=== PATIENT | female | born 1955 | race Caucasian/White ===

== ENCOUNTER 2020-07-31 15:50 | Emergency (ER) | payer MEDICARE, SELFPAY ==
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
[2020-07-31 16:06] VITALS: BP 142/70; PULSE 74; RESP 16; TEMP 37.1; O2SAT 100
== END 2020-07-31 16:28 | disposition home or self-care (01) ==
PROVIDERS: Emergency Provider Nurse Practitioner Family; PCP Family Medicine
DX: H60.91 Unspecified otitis externa, right ear (principal); S40.862A Insect bite (nonvenomous) of left upper arm, initial encounter; S40.861A Insect bite (nonvenomous) of right upper arm, initial encounter; S80.862A Insect bite (nonvenomous), left lower leg, initial encounter; S80.861A Insect bite (nonvenomous), right lower leg, initial encounter; W57.XXXA Bitten or stung by nonvenomous insect and other nonvenomous arthropods, initial encounter; F17.200 Nicotine dependence, unspecified, uncomplicated; E78.00 Pure hypercholesterolemia, unspecified; I10 Essential (primary) hypertension; M19.90 Unspecified osteoarthritis, unspecified site; E03.9 Hypothyroidism, unspecified
CPT/HCPCS: 99213; G0463

== ENCOUNTER 2020-11-10 13:21 | Outpatient (CLI) | payer MEDICARE, SELFPAY ==
--- NOTE | ~2020-11-10 | MM_ITS ---
EXAMINATION: MM screening [facility] BI w alexia HISTORY: Screening mammogram TECHNIQUE: Craniocaudal and mediolateral oblique 3-D tomosynthesis images were obtained and synthetic 2-D images were generated. CAD analysis was submitted and interpreted. COMPARISON: 10/22/2019, 10/09/2018, 09/06/2017 BREAST PARENCHYMAL COMPOSITION: The breasts are almost entirely fatty. FINDINGS: There is no evidence of suspicious mass, calcification, or architectural distortion to sugg est malignancy in either breast. There has been no suspicious interval change. IMPRESSION: 1. No mammographic evidence of malignancy. 2. Recommend routine screening mammography in one year. BI-RADS Category 1: Negative Reviewed, dictated and finalized at location A. K RENTAL MANAGER
== END 2020-11-10 13:22 | disposition home or self-care (01) ==
LOC: ANHIMG 13:23
PROVIDERS: PCP Family Medicine; Visit Provider Family Medicine
DX: Z12.31 Encounter for screening mammogram for malignant neoplasm of breast (principal)
CPT/HCPCS: 77063; 77067

== ENCOUNTER 2020-12-01 11:18 | Outpatient (CLI) | payer MEDICARE, SELFPAY ==
[2020-12-01 12:10] LABS: Anion Gap 8 mmol/L (8-16); Aspartate Amino Transferase 29 U/L (14-36); Blood Urea Nitrogen 21 mg/dL (7-17); Calcium 9.5 mg/dL (8.4-10.2); Carbon Dioxide 33 mmol/L (22-30); Chloride 97 mmol/L (98-107); Cholesterol 148 mg/dL (0-200); Estimated Glomerular Filt Rate 55; Glucose 127 mg/dL (65-105); HDL Direct 43 mg/dL; Potassium 3.6 mmol/L (3.4-5.0); Sodium 138 mmol/L (137-145); Triglycerides 282 mg/dL (<150)
[2020-12-01 12:11] LABS: Hemoglobin A1C 5.8 % (<5.7)
[2020-12-01 12:33] LABS: LDL Cholesterol Direct 69 mg/dL
[2020-12-01 13:03] LABS: Thyroid Stimulating Hormone Reflex 0.818 uIU/mL (0.465-4.68)
== END 2020-12-01 11:19 | disposition home or self-care (01) ==
PROVIDERS: PCP Family Medicine; Visit Provider Family Medicine
DX: E78.5 Hyperlipidemia, unspecified (principal); I10 Essential (primary) hypertension; E03.9 Hypothyroidism, unspecified; R73.03 Prediabetes
CPT/HCPCS: 36415; 80048; 80061; 83036; 84443; 84450

== ENCOUNTER 2021-08-12 11:49 | Outpatient (CLI) | payer MEDICARE, SELFPAY ==
[2021-08-12 12:55] LABS: Hematocrit 38.4 % (37.0-47.0); Hemoglobin 13.1 g/dL (12.0-15.0); Mean Corpuscular HGB Conc 34.1 g/dl (32-36); Mean Corpuscular Hemoglobin 31.5 pg (26-34); Mean Corpuscular Volume 92.3 fl (80-100); Mean Platelet Volume 9.2 fl (7.4-10.4); Platelet Count Result 225 k/mm3 (150-375); Red Blood Count 4.16 M/mm3 (4.2-5.4); Red Cell Distribution Width 13.2 % (11.5-14.5); White Blood Count 7.9 K/mm3 (4.5-10.0)
[2021-08-12 13:14] LABS: Anion Gap 13 mmol/L (8-16); Aspartate Amino Transferase 29 U/L (14-36); Blood Urea Nitrogen 17 mg/dL (7-17); Calcium 9.7 mg/dL (8.4-10.2); Carbon Dioxide 26 mmol/L (22-30); Chloride 99 mmol/L (98-107); Cholesterol 159 mg/dL (0-200); Estimated Glomerular Filt Rate > 60; Glucose 129 mg/dL (65-110); HDL Direct 48 mg/dL; Potassium 3.4 mmol/L (3.4-5.0); Sodium 138 mmol/L (137-145); Triglycerides 250 mg/dL (<150)
[2021-08-12 13:25] LABS: LDL Cholesterol Direct 70 mg/dL
== END 2021-08-12 11:50 | disposition home or self-care (01) ==
LOC: ANHLAB 11:55
PROVIDERS: PCP Family Medicine; Visit Provider Family Medicine
DX: E78.5 Hyperlipidemia, unspecified (principal); R73.03 Prediabetes; E61.8 Deficiency of other specified nutrient elements
CPT/HCPCS: 36415; 80048; 80061; 84450; 85027

== ENCOUNTER 2021-12-15 10:32 | Outpatient (CLI) | payer MEDICARE, SELFPAY ==
--- NOTE | ~2021-12-15 | MM_ITS ---
EXAMINATION: MM screening [facility] BI w alexia HISTORY: Screening TECHNIQUE: Craniocaudal and mediolateral oblique 3-D tomosynthesis images were obtained and synthetic 2-D images were generated. CAD analysis was submitted and interpreted. COMPARISON: Comparison to multiple prior studies sequentially, with oldest reviewed study dated 08/23. BREAST PARENCHYMAL COMPOSITION: There are scattered areas of fibroglandular density. FINDINGS: There is no evidence of suspicious mass, calcification, or architectural distortion to sugg est malignancy in either breast. There has been no suspicious interval change. IMPRESSION: 1. No mammographic evidence of malignancy. 2. Recommend routine screening mammography in one year. BI-RADS Category 1: Negative Reviewed, dictated and finalized at location A. SCHOOL MANAGER
== END 2021-12-15 10:33 | disposition home or self-care (01) ==
LOC: ANHIMG 10:34
PROVIDERS: PCP Family Medicine; Visit Provider Family Medicine
DX: Z12.31 Encounter for screening mammogram for malignant neoplasm of breast (principal)
CPT/HCPCS: 77063; 77067

== ENCOUNTER 2022-06-10 13:08 | Outpatient (CLI) | payer MEDICARE, SELFPAY ==
[2022-06-10 13:44] LABS: Anion Gap 6 mmol/L (8-16); Aspartate Amino Transferase 25 U/L (14-36); Blood Urea Nitrogen 12 mg/dL (7-17); Calcium 8.7 mg/dL (8.4-10.2); Carbon Dioxide 30 mmol/L (22-30); Chloride 97 mmol/L (98-107); Cholesterol 132 mg/dL (0-200); Estimated Glomerular Filt Rate > 60; Glucose 113 mg/dL (65-110); HDL Direct 45 mg/dL; Potassium 3.9 mmol/L (3.4-5.0); Sodium 133 mmol/L (137-145); Triglycerides 172 mg/dL (<150)
[2022-06-10 13:55] LABS: LDL Cholesterol Direct 51 mg/dL
== END 2022-06-10 13:09 | disposition home or self-care (01) ==
LOC: ANHLAB 13:09
PROVIDERS: PCP Family Medicine; Visit Provider Family Medicine
DX: I10 Essential (primary) hypertension (principal); E78.5 Hyperlipidemia, unspecified; E03.9 Hypothyroidism, unspecified; R73.03 Prediabetes
CPT/HCPCS: 36415; 80048; 80061; 83036; 84443; 84450

== ENCOUNTER 2022-07-24 01:36 | Day surgery (SDC) | payer MEDICARE, SELFPAY ==
[2022-07-11 08:20] VITALS: BMI 40.4
[2022-07-24 11:04] VITALS: BP 134/67; PULSE 73; RESP 20; TEMP 36.3; O2SAT 97; BMI 40.6
--- NOTE | 2022-07-24 11:07 | P.PNAN_ITS ---
Anes - Initial Pre Proc Eval Procedure: Operation Date: 07/24/22 11:30 Proposed Procedures p Screening Colonoscopy - Arnold Syed MD Date/Time: 07/24/22 11:07 Surgeon: Arnold Syed MD Pre Op Diagnosis: family hx colon ca Patient Data Age: 66 Gender: F Height: 1.68 m Weight: 114.3 kg Last Vital Signs Temp 36.3 C L 07/24/22 11:04 Pulse 73 07/24/22 11:04 Resp 20 07/24/22 11:04 BP 134/67 07/24/22 11:04 Pulse Ox 97 07/24/22 11:04 O2 Del Method Room Air 07/24/22 11:04 Allergies Allergy/AdvReac Type Severity Reaction Status Date / Time No Known Allergies Allergy Verified 07/24/22 11:04 Home Medications Medication Instructions Recorded Confirmed Type atorvastatin 10 mg tablet 10 mg PO DAILY 07/31/20 07/11/22 History hydrochlorothiazide 50 mg tablet 50 mg PO DAILY 07/31/20 07/11/22 History levothyroxine 125 mcg tablet 125 mcg PO DAILY 07/31/20 07/11/22 History modafinil 200 mg tablet 200 mg PO DAILY 07/31/20 07/11/22 History trazodone 100 mg tablet 100 mg PO DAILY 07/31/20 07/11/22 History multivitamin-ferrous 1 tablet PO DAILY 07/11/22 07/11/22 History fumarate-folic acid 18 mg-400 mcg tablet (Centrum Women) Patient hx anesthesia problems: none Family hx anesthesia problems: none Results Review: All pre-operative results and documents have been reviewed as part of the pre- operative evaluation. [facility] Past Medical History Medical History (Updated 07/24/22 @ 11:10 by Paul Ronquillo MD) Anxiety HTN (hypertension) Hyperlipidemia Hypothyroidism Morbid obesity with BMI of 40.0-44.9, adult CHRISTO on CPAP Family History Family History (Updated 10/04/18 @ 10:06 by DOCTOR UNKNOWN) Other Carcinoma of colon Diabetes mellitus Family history of cardiovascular disease Family history of chronic obstructive pulmonary disease Family history of congestive heart failure Family history of lung cancer Family history of lymphoma Social History Social History Smoking status: Former smoker Tobacco type: cigarettes Alcohol intake: current Substance use type: does not use Living arrangements: with family Spiritual care concerns: No Anes - Eval Final PreProcedure Day of Procedure 07/24/22 11:07 Patient weight: morbidly obese Heart: regular rate and rhythm Lungs: clear to auscultation and normal air movement Airway: Mallampati scale class II Neurological: alert and oriented Last oral intake: >/= 8 hours ASA classification: III Emergent: no Anesthetic plan: proceed Anesthesia type and monitoring: general GIVS Results Review: All pre-operative results and documents have been reviewed as part of the pre- operative evaluation. Informed Consent: The patient's anesthetic plan and its attendant risks and benefits were discussed with the patient/family/POA. Questions were solicited and answers provided to the satisfaction of the patient/family/POA.
[2022-07-24] MEDS: LACTATED RINGERS 1,000 ML 150 ML IV CONT (11:17)
--- NOTE | 2022-07-24 11:18 | PM.IMHP ---
H&P: HPI History of Present Illness Date/Time: 07/24/22 11:18 Chief Complaint: Family history of colon polyps. Narrative: This is a 66-year-old white female patient presents for screening colonoscopy. Patient has had previous colonoscopies apparently these were unremarkable. She has a family history of colon polyps in several sisters. A cousin had colon cancer. Patient reports that she does have a tendency towards constipation. This is improved on adding fiber to her diet. She denies any bleeding or weight loss. Review of Systems Review of Systems: Review of systems noncontributory. [facility] Past Medical History Medical History (Updated 07/24/22 @ 11:19 by Arnold Syed MD) Anxiety HTN (hypertension) Hyperlipidemia Hypothyroidism Morbid obesity with BMI of 40.0-44.9, adult CHRISTO on CPAP Family History Family History (Updated 10/04/18 @ 10:06 by DOCTOR UNKNOWN) Other Carcinoma of colon Diabetes mellitus Family history of cardiovascular disease Family history of chronic obstructive pulmonary disease Family history of congestive heart failure Family history of lung cancer Family history of lymphoma Social History Social History Smoking status: Former smoker Tobacco type: cigarettes Alcohol intake: current Substance use type: does not use Living arrangements: with family Spiritual care concerns: No Meds Home Medications and Allergies Home Medications Medication Instructions Recorded Confirmed Type atorvastatin 10 mg tablet 10 mg PO DAILY 07/31/20 07/11/22 History hydrochlorothiazide 50 mg tablet 50 mg PO DAILY 07/31/20 07/11/22 History levothyroxine 125 mcg tablet 125 mcg PO DAILY 07/31/20 07/11/22 History modafinil 200 mg tablet 200 mg PO DAILY 07/31/20 07/11/22 History trazodone 100 mg tablet 100 mg PO DAILY 07/31/20 07/11/22 History multivitamin-ferrous 1 tablet PO DAILY 07/11/22 07/11/22 History fumarate-folic acid 18 mg-400 mcg tablet (Centrum Women) Allergies Allergy/AdvReac Type Severity Reaction Status Date / Time No Known Allergies Allergy Verified 07/24/22 11:04 Vital Signs Vital Signs - 24 hr 07/24/22 11:04 Temperature 97.3 F L Pulse Rate 73 Respiratory Rate 20 Blood Pressure 134/67 Pulse Oximetry 97 Oxygen Delivery Room Air Exam Narrative: physical exam reveals patient be alert. Vital signs stable. HEENT exam is unremarkable. Patient is anicteric. Lungs are clear to auscultation and percussion. Heart is without murmur or extra sounds. Abdominal exam somewhat obese. Bowel sounds are present soft nontender with no organomegaly. Digital external rectal exam is normal. Assessment and Plan Assessment and plan (1) Family history of colonic polyps: Code(s): Z83.71 - Family history of colonic polyps Status: Acute Assessment and Plan: Patient's family history is significant for several sisters with colon polyps. A cousin with colon cancer. Plan is for surveillance colonoscopy now and consider this a 5 year intervals in the future. Because of a tendency towards constipation fiber supplementation with Metamucil and high-fiber diet advised. (2) Morbid obesity with BMI of 40.0-44.9, adult: Code(s): E66.01 - Morbid (severe) obesity due to excess calories; Z68.41 - Body mass index [BMI] 40.0-44.9, adult Status: Acute Assessment and Plan: Weight loss with calorie restriction increase activity are encouraged.
[2022-07-24 12:00] VITALS: BP 94/40; PULSE 69; RESP 18; O2SAT 96
[2022-07-24 12:10] VITALS: BP 110/62; PULSE 70; RESP 21; O2SAT 98
[2022-07-24 12:20] VITALS: BP 112/64; PULSE 76; RESP 20; O2SAT 99
== END 2022-07-24 12:23 | disposition home or self-care (01) ==
PROVIDERS: PCP Family Medicine; Visit Provider Internal Medicine Gastroenterology
PROC: 0DJD8ZZ Inspection of Lower Intestinal Tract, Via Natural or Artificial Opening Endoscopic (ICD-10-PCS; CPT 45378; principal; 2022-07-24 11:30)
DX: Z12.11 Encounter for screening for malignant neoplasm of colon (principal); K63.5 Polyp of colon; K64.8 Other hemorrhoids; F41.9 Anxiety disorder, unspecified; I10 Essential (primary) hypertension; E78.5 Hyperlipidemia, unspecified; E03.9 Hypothyroidism, unspecified; G47.33 Obstructive sleep apnea (adult) (pediatric); Z87.891 Personal history of nicotine dependence; Z83.71 Family history of colonic polyps; E66.01 Morbid (severe) obesity due to excess calories; Z68.41 Body mass index [BMI] 40.0-44.9, adult
CPT/HCPCS: 45385; 88305; J2704; J7120

== ENCOUNTER 2022-11-29 12:59 | Outpatient (CLI) | payer MEDICARE, SELFPAY ==
[2022-11-29 13:37] LABS: Anion Gap 6 mmol/L (8-16); Blood Urea Nitrogen 18 mg/dL (7-17); Carbon Dioxide 32 mmol/L (22-30); Chloride 96 mmol/L (98-107); Estimated Glomerular Filt Rate > 60; Glucose 132 mg/dL (65-110); Potassium 4.3 mmol/L (3.4-5.0); Sodium 134 mmol/L (137-145)
== END 2022-11-29 13:00 | disposition home or self-care (01) ==
PROVIDERS: PCP Family Medicine; Visit Provider Family Medicine
DX: R79.89 Other specified abnormal findings of blood chemistry (principal)
CPT/HCPCS: 36415; 80048

== ENCOUNTER 2023-02-07 14:49 | Outpatient (CLI) | payer MEDICARE, SELFPAY ==
--- NOTE | ~2023-02-07 | DEXA_ITS ---
Bone Density Report Name: JAYJAY FERRERA Age: 67 Sex: Female Ethnicity: White Date of : 1955 Indication: postmenopausal; screening for osteoporosis; height loss; Referring Provider: HEIKE, ANGELA Doss Study: Bone densitometry was performed. Exam Date: February 07, 2023 Accession number: [id number] Bone Density: Region BMD T-score Z-score Classification AP Spine(L1-L4) 1.063 0.1 2.1 Normal Femoral Neck (Left) 0.926 0.7 2.4 Normal Total Hip (Left) 1.075 1.1 2.5 Normal Femoral Neck (Right) 0.934 0.8 2.5 Normal Total Hip (Right) 1.135 1.6 3.0 Normal Total Hip Mean 1.105 1.4 2.8 Normal World Health Organization criteria for BMD impression classify patients as: Normal (T-score at or above -1.0), Osteopenia (T-score between -1.0 and -2.5), or Osteoporosis (T-score at or below -2.5). 10-year Fracture Risk: FRAX not reported because: All T-scores for Spine Total, Hip Total, Femoral Neck at or above -1.0 Clinical Information Provided by Patient: Has used the following medications: Vitamin D, Calcium Patient maximum height was 66 Menopause Age: 47 No regular weight bearing exercise Drinks caffeinated beverages Onset of menses at age 13 Number of children 0 Impression: The patient has normal bone mass. Discussion: LOW RISK OF FRACTURE; BONE DENSITY IS WELL ABOVE THE MINIMUM DESIRABLE LEVEL AND ABOVE AVERAGE FOR AGE AND SEX AT ALL SKELETAL SITES TESTED. This person's bone density is above expected limits for age and sex. This is rarely clinically significant, but should be pursued if there are significant musculoskeletal complaints. The patient should follow a healthful lifestyle (good nutrition with adequate calcium and vitamin D, and appropriate weight-bearing exercise). Follow-Up: Consider repeating this study in 5 years or sooner if there is some new clinical indication. Reported by: KEZIA on 02/07/2023 3:24:00 PM. Reviewed, dictated and finalized at location ATamar DO
--- NOTE | ~2023-02-07 | MM_ITS ---
EXAMINATION: MM screening [facility] BI w alexia HISTORY: Screening mammogram TECHNIQUE: Craniocaudal and mediolateral oblique 3-D tomosynthesis images were obtained and synthetic 2-D images were generated. CAD analysis was submitted and interpreted. COMPARISON: 12/15/2021, 11/10/2020, 10/22/2019 bilateral screening mammogram examinations BREAST PARENCHYMAL COMPOSITION: There are scattered areas of fibroglandular density. FINDINGS: Occasional stable bilateral benign intramammary lymph nodes. Scattered bilateral benign pun ctate microcalcifications and occasional calcified microhematomas. There is no evidence of suspicious mass, calcification, or architectural distortion to suggest malign jaclyn in either breast. There has been no suspicious interval change. IMPRESSION: 1. No mammographic evidence of malignancy. 2. Recommend routine screening mammography in one year. BI-RADS Category 2: Benign finding(s). Reviewed, dictated and finalized at location A.
== END 2023-02-07 14:50 | disposition home or self-care (01) ==
LOC: ANHIMG 14:51
PROVIDERS: PCP Emergency Medicine; Visit Provider Emergency Medicine
DX: Z12.31 Encounter for screening mammogram for malignant neoplasm of breast (principal); Z78.0 Asymptomatic menopausal state
CPT/HCPCS: 77063; 77067; 77080

== ENCOUNTER 2023-06-07 13:01 | Outpatient (CLI) | payer MEDICARE, SELFPAY ==
[2023-06-07 13:33] LABS: White Blood Count 7.7 K/mm3 (4.5-10.0)
[2023-06-07 13:34] LABS: Basophils Absolute Auto 0.1 K/mm3 (0.0-0.1); Basophils Percent Auto 0.6 % (0.2-1.2); Eosinophils Absolute Auto 0.2 K/mm3 (0-0.3); Eosinophils Percent Auto 1.9 % (0-4.4); Hemoglobin 13.1 g/dL (12.0-15.0); Immature Granulocyte Absolute 0.02 K/mm3 (0.00-0.031); Immature Granulocyte Percent A 0.3 % (0-0.5); Lymphocytes Absolute Auto 2.03 K/mm3 (0.9-3.2); Lymphocytes Percent Auto 26.4 % (18.3-44.2); Mean Corpuscular HGB Conc 33.6 g/dl (32-36); Mean Corpuscular Hemoglobin 30.8 pg (26-34); Mean Corpuscular Volume 91.8 fl (80-100); Mean Platelet Volume 8.8 fl (7.4-10.4); Monocytes Absolute Auto 0.4 K/mm3 (0.1-0.6); Monocytes Percent Auto 5.7 % (2.6-8.5); Neutrophils Percent Auto 65.1 % (45.5-73.1); Platelet Count Result 201 k/mm3 (150-375); Red Blood Count 4.25 M/mm3 (4.2-5.4); Red Cell Distribution Width 13.3 % (11.5-14.5)
[2023-06-07 13:53] LABS: Alanine Aminotransferase 30 U/L (6-35); Albumin Level 4.2 g/dL (3.5-5.1); Alkaline Phosphatase 92 U/L (38-126); Anion Gap 4 mmol/L (8-16); Aspartate Amino Transferase 26 U/L (14-36); Bilirubin,Total 0.6 mg/dL (0.2-1.3); Blood Urea Nitrogen 11 mg/dL (7-17); Calcium 9.1 mg/dL (8.4-10.2); Carbon Dioxide 28 mmol/L (22-30); Chloride 98 mmol/L (98-107); Cholesterol 136 mg/dL (0-200); Estimated Glomerular Filt Rate > 60; Glucose 122 mg/dL (65-110); HDL Direct 40 mg/dL; Magnesium 1.8 mg/dL (1.6-2.3); Potassium 3.9 mmol/L (3.4-5.0); Sodium 130 mmol/L (137-145); Triglycerides 192 mg/dL (<150)
[2023-06-07 14:03] LABS: LDL Cholesterol Direct 63 mg/dL
[2023-06-07 14:40] LABS: Vitamin D 25 Hydroxy 45.8 ng/mL
== END 2023-06-07 13:02 | disposition home or self-care (01) ==
LOC: ANHLAB 13:03
PROVIDERS: PCP Emergency Medicine; Visit Provider Emergency Medicine
DX: Z79.899 Other long term (current) drug therapy (principal)
CPT/HCPCS: 36415; 80053; 80061; 82306; 83735; 84443; 85025

== ENCOUNTER 2023-08-11 13:51 | Outpatient (CLI) | payer MEDICARE, SELFPAY ==
[2023-08-11 14:21] LABS: Anion Gap 9 mmol/L (8-16); Blood Urea Nitrogen 15 mg/dL (7-17); Calcium 9.4 mg/dL (8.4-10.2); Carbon Dioxide 29 mmol/L (22-30); Chloride 96 mmol/L (98-107); Estimated Glomerular Filt Rate > 60; Glucose 109 mg/dL (65-110); Potassium 3.8 mmol/L (3.4-5.0); Sodium 134 mmol/L (137-145)
== END 2023-08-11 13:52 | disposition home or self-care (01) ==
LOC: ANHLAB 13:53
PROVIDERS: PCP Emergency Medicine; Visit Provider Emergency Medicine
DX: E87.1 Hypo-osmolality and hyponatremia (principal)
CPT/HCPCS: 36415; 80048

== ENCOUNTER 2024-05-09 13:07 | Outpatient (CLI) | payer MEDICARE, SELFPAY ==
[2024-05-09 13:52] LABS: Basophils Percent Auto 0.5 % (0.2-1.2); Eosinophils Absolute Auto 0.1 K/mm3 (0-0.3); Eosinophils Percent Auto 1.6 % (0-4.4); Hematocrit 40.7 % (37.0-47.0); Hemoglobin 13.4 g/dL (12.0-15.0); Immature Granulocyte Absolute 0.04 K/mm3 (0.00-0.031); Immature Granulocyte Percent A 0.5 % (0-0.5); Lymphocytes Absolute Auto 2.15 K/mm3 (0.9-3.2); Lymphocytes Percent Auto 24.9 % (18.3-44.2); Mean Corpuscular HGB Conc 32.9 g/dl (32-36); Mean Corpuscular Hemoglobin 30.7 pg (26-34); Mean Corpuscular Volume 93.1 fl (80-100); Mean Platelet Volume 9.2 fl (7.4-10.4); Monocytes Absolute Auto 0.7 K/mm3 (0.1-0.6); Monocytes Percent Auto 8.6 % (2.6-8.5); Neutrophils Absolute Auto 5.5 K/mm3 (1.3-6.7); Neutrophils Percent Auto 63.9 % (45.5-73.1); Platelet Count Result 221 k/mm3 (150-375); Red Blood Count 4.37 M/mm3 (4.2-5.4); Red Cell Distribution Width 13.2 % (11.5-14.5); White Blood Count 8.6 K/mm3 (4.5-10.0)
[2024-05-09 14:22] LABS: Alanine Aminotransferase 31 U/L (6-35); Albumin Level 4.6 g/dL (3.5-5.1); Alkaline Phosphatase 102 U/L (38-126); Anion Gap 11 mmol/L (4-12); Aspartate Amino Transferase 28 U/L (14-36); Bilirubin,Total 0.6 mg/dL (0.2-1.3); Blood Urea Nitrogen 15 mg/dL (7-17); Calcium 9.4 mg/dL (8.4-10.2); Carbon Dioxide 25 mmol/L (22-30); Chloride 100 mmol/L (98-107); Cholesterol 138 mg/dL (0-200); Estimated Glomerular Filt Rate > 60; Glucose 133 mg/dL (65-110); HDL Direct 43 mg/dL; Potassium 3.5 mmol/L (3.4-5.0); Sodium 136 mmol/L (137-145); Triglycerides 234 mg/dL (<150)
[2024-05-09 14:32] LABS: LDL Cholesterol Direct 70 mg/dL
[2024-05-09 14:49] LABS: Thyroid Stimulating Hormone 0.036 uIU/mL (0.465-4.680)
== END 2024-05-09 13:08 | disposition home or self-care (01) ==
LOC: ANHLAB 13:15
PROVIDERS: PCP Emergency Medicine; Visit Provider Emergency Medicine
DX: Z79.899 Other long term (current) drug therapy (principal)
CPT/HCPCS: 36415; 80053; 80061; 83036; 83735; 84443; 85025

== ENCOUNTER 2024-08-12 13:35 | Outpatient (CLI) | payer MEDICARE, SELFPAY | END 2024-08-12 13:36 | disposition home or self-care (01) | LOC: ANHLAB 13:46 | PROVIDERS: PCP Emergency Medicine; Visit Provider Emergency Medicine | DX: E03.9 Hypothyroidism, unspecified (principal) | CPT/HCPCS: 36415; 84443 ==

== ENCOUNTER 2025-04-27 13:43 | Outpatient (CLI) | payer MEDICARE, SELFPAY ==
--- OUTSIDE RECORDS SUMMARY | 2025-04-27 14:17 | XMS_ITS | Encounter Summary ---
Author Organization [facility] Facility Care Team Providers Care Farmworker General Name Role Phone Patricia Meléndez MD Primary Care Provider [phone] Lety Trotter NP Primary Care Provid er Encounter Details Date Type Department Care Team (Latest Contact Info) Description 09/18/2018 Orders Only [facility] CLINCONV ProviderModesta MD [address] [place] [id number] Social History Tobacco Use Types Packs/Day Years Used Date Smoking Tobacco: Never Assessed Comments Unknown Sex and Gender Information Value Date Recorded Sex Assigned at Not on file Legal Sex Female 8:14 PM COREMAKER EXPERIMENTAL Gender Identity Female 11/21/2022 4:52 PM COREMAKER EXPERIMENTAL Sexual Orientation Straight 11/21/2022 4: 52 PM COREMAKER EXPERIMENTAL documented as of this encounter Plan of Treatment Upcoming Encounters Date Type Department Care Team (Late st Contact Info) Description 05/04/2025 10:30 AM CDT Hospital Encounter [facility] [address] [place] [address] Issac Willis MD [facility] [address] [place] [id number] 05/04/2025 10:30 AM CDT - 05/04/2025 11:00 AM CDT Surgery [facility] [address] [place] [address] [place] [address] [place] [address] [address] [place] [address] COLONOSCOPY Scheduled Procedures Name Priority Associated Diagnoses Date/Ti me COLONOSCOPY Positive colorectal cancer screening using Cologuard test 05/04/2025 10:30 AM CDT documented as of this encounter Procedures Procedure Name Priority Date/Time Associated Diagnosis Comments PROCEDURE - RESULT 09/18/2018 12 :00 AM CDT documented in this encounter Results * PROCEDURE - RESULT (09/18/2018 12:00 AM CDT) Narrative 09/18/2018 12:00 AM CDT Ordered by an unspecified provider. Historical Provider Final Res ult documented in this encounter Visit Diagnoses Not on filedocumented in this encounter Care Teams Farmworker General Relationship Specialty Start Date End Date Patricia Meléndez MD [address] [address] PCP - General 01/07/19 11/21/22 Lety Trotter NP [address] [address] PCP - General Family Medicine 11/17/24 documented as of this encounter
--- OUTSIDE RECORDS SUMMARY | 2025-04-27 14:17 | XMS_ITS | Clinical Summary ---
Author Organization [facility] Address [address] [place] [address] Care Team Providers Care Commercial Fisher Name Role Phone Patricia Meléndez MD Primary Care Provider [phone] Source Comments [facility],non-owned Affiliates and Associated Physician Practices is amultiple site organization consisting of ambulatory clinics and hospital sitesin [place], [place], [place] and [place]. This disclosure is being madepursuant to the Care Everywhere program and may not contain all information available regarding this patient. Last updated 18.[facility] [email or web address] Active Problems Problem Noted Date Diagnosed Date Fatty (change of) liver, not elsewhere classifie d 11/05/2014 Social History Tobacco Use Types Packs/Day Years Used Date Smoking Tobacco: Every Day Cigarettes Smokeless Tobacco: Never Alcohol Use Standard Drinks/Week Comments No 0 (1 standard drink = 0.6 oz pur e alcohol) Comments Unknown Sex and Gender Information Value Date Recorded Sex Assigned at Not on file Legal Sex Female 6:21 PM VOICE PROFESSOR Gender Identity Not on file Sexual Orientation Not on file Last Filed Vital Signs Vital Sign Reading Time Taken Comments Blood Pressure 149/88 01/07/2015 3:29 PM VOICE PROFESSOR Pulse 97 01/07/2015 3:29 PM VOICE PROFESSOR Temperature 37.3 C (99.1 F) 01/07/2015 3:29 PM VOICE PROFESSOR Respiratory Rate 18 01/07/2015 3:29 PM VOICE PROFESSOR Oxygen Saturation - - Inhaled Oxygen Concentration - - Weight 115.7 kg (255 lb) 01/07/2015 3:29 PM VOICE PROFESSOR Height 167.6 cm (5' 6) 01/07/2015 3:29 PM VOICE PROFESSOR Body Mass Index 41.16 01/07/2015 3:29 PM VOICE PROFESSOR Plan of Treatment Health Maintenance Due Date Last Done Comments BONE DENSITY TESTING 1955 COLOGUARD (AGES 45-75) - COL ON CA SCREENING 1955 COLON MONITORING 1955 COLONOSCOPY - COLON CA SCREENING 1955 CT COLONOGRAPHY - COLON CA SCREENING 1955 Colorectal Cancer Screening 1955 FIT - COLON CA SCREENING 1955 FLEX SIG - COLON CA SCREENING 1955 LIPID TESTING 1955 MAMMOGRAM 1955 DTAP/TDAP/TD VACCINES (1 - Tdap) 1973 PNEUMOCOCCAL VACCINE 50+ (1 of 1 - PCV) 2004 ZOSTER VACCINE (1 of 2) 2004 Respiratory Syncytial Virus (RSV) Vaccine Pt: or over 60 yrs (1 - Risk 60-74 years 1-dose series) 2014 COVID-19 VACCINE ( - 2023-2 5 season) 2024 DEPRESSION SCREENING 11/26/2024 INFLUENZA VACCINE (Season Ended) 2025 HEPATITIS C SCREENING Completed 11/05/2014 HEPATITIS B VACCINE Aged Out No longe r eligible based on patient's age to complete this topic HIB VACCINE Aged Out No longer eligi ble based on patient's age to complete this topic HPV VACCINE Aged Out No longer eligi ble based on patient's age to complete this topic MENINGOCOCCAL (Group B) VACC INE SHARED DECISION-MAKING Aged Out No longer eligibl e based on patient's age to complete this topic MENINGOCOCCAL GROUPS A/C/Y/W VACCINE Aged Out No longer eligible b ased on patient's age to complete this topic Procedures Procedure Name Priority Date/Time Associated Diagnosis Comments HEPATITIS C ANTIBODY Routine 11/05/2014 5:25 PM VOICE PROFESSOR from Last 3 Months or Most Recently Relevant to Health Maintenance Results * HEPATITIS C ANTIBODY (11/05/2014 5:25 PM VOICE PROFESSOR) [facility]: Hepatitis C Antibody screen indicates no serologic evidence of past or current infection with Hepatitis C Virus. Patients with unexplained liver disease who are immunocompromised or suspected of having acute Hepatitis C infection may benefit from Nucleic Acid Test (GRACE) for Hepatitis C Viral RNA to confirm Hepatitis C status. Blood specimen (specimen) BLOOD SPECIMEN / Unknown 11/05/2014 5:25 PM VOICE PROFESSOR 11/05/2014 6:39 PM VOICE PROFESSOR Colt Alexander MD LAB - CHEMISTRY ORDERABLES Migdalia mast Result [address] [phone] from Last 3 Months or Most Recently Relevant to Health Maintenance Insurance [employer] Care Teams Commercial Fisher Relationship Specialty Start Date End Date Patricia Meléndez MD [address] [id number] PCP - General 11/05/14
--- OUTSIDE RECORDS SUMMARY | 2025-04-27 14:17 | XMS_ITS | Data Portability ---
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 Plan of Treatment Reminders Order Date Submit Date Provider Last Modified By Organization Details Last Modified Time Details Appointments MEDICARE WELLNESS VISIT 2024 03:00P M TANESHA Whaley Not available Not available Not available Lab HbA1c (hemoglob in A1c), blood 2024 025 [facility] (Lab), [address] [place] [address] [address], [place], [address], 04/27/2025 09:45:21 CMP, serum or plasma 2024 025 [facility], [address], [place], [address], 01/28/2025 08:22:52 CBC w/ auto diff 2024 025 [facility], [facility] [place][note 2]7 [facility], [address], [place], [address], 01/28/2025 08:22:54 TSH + free T4, serum 2024 025 [facility], [address], [place], [address], 01/28/2025 08:22:51 lipid panel, serum 2024 025 [facility] (Lab), [address] [facility] [address], [place], [address], 04/27/2025 09:45:21 BMP, serum or plasma 2023 024 [facility], [address], [address], [place], [address], 01/02/2024 12:22:45 magnesium , serum or plasma 2023 024 [facility], [address], [address], [place], [address], 01/02/2024 12:22:45 HbA1c (hemoglob in A1c), blood 2022 023 [facility] In-Office Order, Internal Use Only DO Not Attach Compendium DO Not Attach Compendium, Do Not Delete/merge, [id number] 06/13/2023 09:23:30 BMP, serum or plasma 2022 023 [facility] (Lab), [address] [facility] [address], [place], [address], 07/12/2023 09:40:42 rapid SARS CoV 2 Ag, QL IA, respirato ry specimen 2022 023 [email or web address] In-Office Order, Internal Use Only DO Not Attach Compendium DO Not Attach Compendium, Do Not Delete/merge, [id number] 03/22/2023 16:30:43 Referral None recorded. Procedures None recorded. Surgeries None recorded. Imaging None recorded. Medication Orders prednison e 20 mg tablet 2023 024 [facility] [id number] [facility], [facility] [address] , [place], [address], 08/15/2024 15:21:24 amoxicill in 875 mg-potass ium clavulana te 125 mg tablet [address] [id number], [address], [place], [place], [id number], 06/22/2024 08:02:22 Patient TargetsNo targets recorded. Patient Instructions Encounter Date Encounter Id Patient Instructions Last Modified By Organization Details Last Modified Time 03/22/2023 [id number] Acute Sinusitis: Care Instructions [email or web address] Not available 03/22/2023 17:16:22 06/11/2023 [id number] high cholesterol : care instructions [email or web address] Not available 06/11/2023 17:31:24 body mass index: care instructions [email or web address] Not available 06/11/2023 17:31:24 learning about h ealthy weight [email or web address] Not available 06/11/2023 17:31:24 electrolyte imba nessa: care instructions [email or web address] Not available 06/11/2023 17:31:24 hyponatremia: ca re instructions [email or web address] Not available 06/11/2023 17:31:24 learning about h igh blood pressure [email or web address] Not available 06/11/2023 17:31:24 hypothyroidism: care instructions [email or web address] Not available 06/11/2023 17:31:24 Elliott, - Thank kaleb valencia for your visit - Continue your current medications - your hemoglobin A1c is 6.1 - cut your dose of hydrochlorothiazide to 25 mg, tablet by mouth until your medication is renewed - recheck your sodium in one month - check your blood pressures daily, call if climbing to 140/90 and above - Return to clinic in 6 months, AND as needed. - Call with any concerns ____ Immunization recommendations: Preventive immunization against tetanus, diphtheria and pertussis is recommended every 10 years, or after 7 years if sustaining a tetanus-prone wound. Preventive immunization against shingles (herpes zoster) is recommended to reduce risk of occurrence, possible chronic pain, and transmission. Currently this is a two shot regimen. All individuals age 65 and up are encouraged to obtain vaccination against Pneumococcal pneumonia. Currently, this is a single immunization, [id number], if you have never previously been immunized. Yearly influenza immunization is recommended, and typically available beginning in mid-July. I highly encourage all who are able to complete an initial immunization series against COVID19, along with boosters as indicated by age or medical history. ____ Exercise recommendations: It is recommended that you do daily aerobic (walking, bicycling, swimming) and resistance exercises (light weight lifting, resistance band stretching) for at least 30 minutes, most days of the week. If you cannot walk, chair exercises for 10-15 minutes a day would help tremendously. As little as 15-20 minutes exercise, in one or two sessions a day, is still very helpful to manage/improve your weight and overall health Diet recommendations: Eat small portion meals, trying not to consume more than 1800 calories a day. Try to eat not more than 2 servings of carbs (starches) with your meals. Avoid soft drinks, including regular sodas, fruit juices, and sweetened tea. Drink water instead. Eat plenty of green and leafy vegetables, including salads. [email or web address] Not available 06/11/2023 17:31:22 01/01/2024 [id number] body mass index: care instructions [email or web address] Not available 01/01/2024 15:54:15 learning about h ealthy weight [email or web address] Not available 01/01/2024 15:54:16 tetanus and diph theria booster: care instructions [email or web address] Not available 01/01/2024 15:54:16 Elliott, - Thank yo annie for your visit - Continue your current medications - Your results will be available on the portal with any recommendations, or we will call you with them - Return to clinic in 6 months, AND as needed. - Call with any concerns ____ Immunization recommendations: - Preventive immunization against shingles (herpes zoster) is recommended to reduce risk of occurrence, possible chronic pain, and transmission. Currently this is a two shot regimen. - Yearly influenza immunization is recommended, and typically available beginning in mid-July. - I highly encourage all who are able to complete an initial immunization series against COVID19, along with boosters as indicated by age or medical history. - Consider obtaining an RSV immunization. For more information: https://www.cdc.gov/va teofilo/vpd/rsv/index.h tml ____ Exercise recommendations: - It is recommended that you do daily aerobic (walking, bicycling, swimming) and resistance exercises (light weight lifting, resistance band stretching) for at least 30 minutes, most days of the week. - If you cannot walk, chair exercises for 10-15 minutes a day would help tremendously. - As little as 15-20 minutes exercise, in one or two sessions a day, is still very helpful to manage/improve your weight and overall health Diet recommendations: - Eat small portion meals, trying not to consume more than 1800 calories a day. - Try to eat not more than 2 servings of carbs (starches) with your meals. - Avoid soft drinks, including regular sodas, fruit juices, and sweetened tea. Drink water instead. - Eat plenty of green and leafy vegetables, including salads. [email or web address] Not available 01/01/2024 16:00:35 07/01/2024 [id number] body mass index: care instructions [email or web address] Not available 07/01/2024 16:22:40 learning about h ealthy weight [email or web address] Not available 07/01/2024 16:22:40 learning about h igh blood pressure [email or web address] Not available 07/01/2024 16:22:40 high cholesterol : care instructions [email or web address] Not available 07/01/2024 16:22:40 Elliott, - Thank kaleb valencia for your visit - Continue your current medications - Use medications as directed. - See handout, ice, call with an update in 10 days - If shoulder not improving, will need to refer to sports medicine or orthopedics - mention your exertional shortness of breath to Dr. Shelby - you might need repeat lung testing - Have your TSH drawn at [place] in mid-July - Return to clinic in 6 months, AND as needed. - Call with any concerns ____ Immunization recommendations: - Preventive immunization against shingles (herpes zoster) is recommended to reduce risk of occurrence, possible chronic pain, and transmission. Currently this is a two shot regimen. - Yearly influenza immunization is recommended, and typically available beginning in mid-July. - I highly encourage all who are able to complete an initial immunization series against COVID19, along with boosters as indicated by age or medical history. - Consider obtaining an RSV immunization. For more information: https://www.cdc.gov/va teofilo/vpd/rsv/index.h tml ____ Exercise recommendations: - It is recommended that you do daily aerobic (walking, bicycling, swimming) and resistance exercises (light weight lifting, resistance band stretching) for at least 30 minutes, most days of the week. - If you cannot walk, chair exercises for 10-15 minutes a day would help tremendously. - As little as 15-20 minutes exercise, in one or two sessions a day, is still very helpful to manage/improve your weight and overall health Diet recommendations: - Eat small portion meals, trying not to consume more than 1800 calories a day. - Try to eat not more than 2 servings of carbs (starches) with your meals. - Avoid soft drinks, including regular sodas, fruit juices, and sweetened tea. Drink water instead. - Eat plenty of green and leafy vegetables, including salads. [email or web address] Not available 07/01/2024 16:22:23 Reason for Referral None Reported. Results Created Date Observation Date Name Description Value Unit Range Abnormal Flag Note LastModifiedBy Organization Detail LastModifiedTime 03/22/2003/22/2023 rapid SARS CoV 2 Ag, QL IA, respi rator y speci men rapid SARS CoV 2 Ag, QL IA, respiratory specimen negati ve Not Available In-Office Order Internal Use Only DO Not Attach Compendium DO Not Attach Compendium, Do Not Delete/merge, [id number] 03/22/2023 15:43:54 06/13/2006/13/2023 HbA1c (hemo globi n A1c), blood HbA1c 6.1 Not Available In-Office Order Internal Use Only DO Not Attach Compendium DO Not Attach Compendium, Do Not Delete/merge, [id number] 06/11/2023 17:20:20 01/01/20 24 01/02/2024 MAGNE SIUM magnesium 2.0 mg/dL 1.5-2. 5 normal Not Available [address], [address], 01/02/2024 12:22:44 01/01/20 24 01/02/2024 BASIC METAB OLIC PANEL glucose 88 mg/dL 65-99 normal Fasti ng refer ence inter loyda Not Available [address], [address], 01/02/2024 12:22:45 01/01/20 24 01/02/2024 BASIC METAB OLIC PANEL urea nitrogen (BUN) 13 mg/dL 7-25 normal Not Available [address], [address], 01/02/2024 12:22:45 01/01/20 24 01/02/2024 BASIC METAB OLIC PANEL creatinine 0.89 mg/dL 0.50-1 .05 normal Not Available [address], [address], 01/02/2024 12:22:45 01/01/20 24 01/02/2024 BASIC METAB OLIC PANEL eGFR 70 mL/mi n/1.7 3m2 > or = 60 normal Not Available [address], [address], 01/02/2024 12:22:45 01/01/20 24 01/02/2024 BASIC METAB OLIC PANEL BUN/creatini ne ratio SEE NOTE: (calc ) 6-22 Not Repor christiane: BUN and Creat inine are withi n refer ence range . Not Available [address], [address], 01/02/2024 12:22:45 01/01/20 24 01/02/2024 BASIC METAB OLIC PANEL sodium 139 mmol/ L 135-14 6 normal Not Available [address], [address], 01/02/2024 12:22:45 01/01/20 24 01/02/2024 BASIC METAB OLIC PANEL potassium 3.8 mmol/ L 3.5-5. 3 normal Not Available [address], [address], 01/02/2024 12:22:45 01/01/20 24 01/02/2024 BASIC METAB OLIC PANEL chloride 101 mmol/ L 98-110 normal Not Available [address], [address], 01/02/2024 12:22:45 01/01/20 24 01/02/2024 BASIC METAB OLIC PANEL carbon dioxide 26 mmol/ L 20-32 normal Not Available [address], [address], 01/02/2024 12:22:45 01/01/20 24 01/02/2024 BASIC METAB OLIC PANEL calcium 9.5 mg/dL 8.6-10 .4 normal Not Available [address], [address], 01/02/2024 12:22:45 01/28/20 25 01/28/2025 TSH+F REE T4 TSH 7.840 uIU/m L 0.450- 4.500 above high normal Not Available [facility] ([facility]) [address] [place], [address], 01/28/2025 08:22:51 01/28/2001/28/2025 TSH+F REE T4 T4,free(dire ct) 1.10 NG/dL 0.82-1 .77 Not Available [facility] ([facility]) [address] [place], [address], 01/28/2025 08:22:51 01/28/20 25 01/28/2025 COMP. METAB OLIC PANEL (14) glucose 97 mg/dL 70-99 Not Available [facility] ([facility]) [address] [place], [address], 01/28/2025 08:22:52 01/28/20 25 01/28/2025 COMP. METAB OLIC PANEL (14) BUN 13 mg/dL 8-27 Not Available [facility] ([facility]) [address] [place], [address], 01/28/2025 08:22:52 01/28/20 25 01/28/2025 COMP. METAB OLIC PANEL (14) creatinine 1.03 mg/dL 0.57-1 .00 above high normal Not Available [facility] ([facility]) [address] [place], [address], 01/28/2025 08:22:52 01/28/20 25 01/28/2025 COMP. METAB OLIC PANEL (14) eGFR 58 mL/mi n/1.7 3 >59 below low normal Not Available [facility] ([facility]) [address] [place], [address], 01/28/2025 08:22:52 01/28/20 25 01/28/2025 COMP. METAB OLIC PANEL (14) BUN/creatini ne ratio 13 12-28 Not Available [facility] ([facility]) [address] [place], [address], 01/28/2025 08:22:52 01/28/20 25 01/28/2025 COMP. METAB OLIC PANEL (14) sodium 139 mmol/ L 134-14 4 Not Available [facility] ([facility]) [address] [place], [address], 01/28/2025 08:22:52 01/28/20 25 01/28/2025 COMP. METAB OLIC PANEL (14) potassium 4.0 mmol/ L 3.5-5. 2 Not Available [facility] ([facility] [address] [facility] [place] [address], 01/28/2025 08:22:52 01/28/20 25 01/28/2025 COMP. METAB OLIC PANEL (14) chloride 98 mmol/ L 96-106 Not Available [facility] ([facility]) [address] [place], [address], 01/28/2025 08:22:52 01/28/20 25 01/28/2025 COMP. METAB OLIC PANEL (14) carbon dioxide, total 23 mmol/ L 20-29 Not Available [facility] ([facility] [address] [facility] [place] [place] [address], 01/28/2025 08:22:52 01/28/20 25 01/28/2025 COMP. METAB OLIC PANEL (14) calcium 9.5 mg/dL 8.7-10 .3 Not Available [facility] ([facility]) [address] [facility] [place] [place], [address], 01/28/2025 08:22:52 01/28/20 25 01/28/2025 COMP. METAB OLIC PANEL (14) protein, total 7.1 g/dL 6.0-8. 5 Not Available [facility] ([facility]) [address] [facility] [place], [address], 01/28/2025 08:22:52 01/28/20 25 01/28/2025 COMP. METAB OLIC PANEL (14) albumin 4.4 g/dL 3.9-4. 9 Not Available [facility] ([facility]) [address] [facility] [place] [place], [address], 01/28/2025 08:22:52 01/28/20 25 01/28/2025 COMP. METAB OLIC PANEL (14) globulin, total 2.7 g/dL 1.5-4. 5 Not Available [facility] ([facility]) [address] [facility], [place], [address], 01/28/2025 08:22:52 01/28/20 25 01/28/2025 COMP. METAB OLIC PANEL (14) bilirubin, total 0.4 mg/dL 0.0-1. 2 Not Available [facility] ([facility]) [address] [facility] [place] [place], [address], 01/28/2025 08:22:52 01/28/20 25 01/28/2025 COMP. METAB OLIC PANEL (14) alkaline phosphatase 115 IU/L 44-121 Not Available [facility] ([facility]) [address] [facility] [place] [place], [address], 01/28/2025 08:22:52 01/28/20 25 01/28/2025 COMP. METAB OLIC PANEL (14) AST (SGOT) 29 IU/L 0-40 Not Available [facility] ([facility]) [address] [facility], [place], [address], 01/28/2025 08:22:52 01/28/20 25 01/28/2025 COMP. METAB OLIC PANEL (14) ALT (SGPT) 31 IU/L 0-32 Not Available [facility] ([facility]) [address] [facility] [place], [address], 01/28/2025 08:22:52 01/28/20 25 01/28/2025 CBC WITH DIFFE RENTI AL/PL ATELE T WBC 8.0 x10e3 /uL 3.4-10 .8 Not Available [facility] ([facility]) [address] [facility] [place], [address], 01/28/2025 08:22:53 01/28/20 25 01/28/2025 CBC WITH DIFFE RENTI AL/PL ATELE T RBC 4.25 x10e6 /uL 3.77-5 .28 Not Available [facility] ([facility]) [address] [facility] [place], [address], 01/28/2025 08:22:53 01/28/20 25 01/28/2025 CBC WITH DIFFE RENTI AL/PL ATELE T hemoglobin 13.1 g/dL 11.1-1 5.9 Not Available [facility] ([facility]) [address] [facility], [place], [address], 01/28/2025 08:22:53 01/28/20 25 01/28/2025 CBC WITH DIFFE RENTI AL/PL ATELE T hematocrit 39.5 % 34.0-4 6.6 Not Available [facility] ([facility]) [address] [place], [address], 01/28/2025 08:22:53 01/28/20 25 01/28/2025 CBC WITH DIFFE RENTI AL/PL ATELE T MCV 93 fL 79-97 Not Available [facility] ([facility]) [address] [place], [address], 01/28/2025 08:22:53 01/28/20 25 01/28/2025 CBC WITH DIFFE RENTI AL/PL ATELE T MCH 30.8 pg 26.6-3 3.0 Not Available [facility] ([facility]) [address] [place], [address], 01/28/2025 08:22:53 01/28/20 25 01/28/2025 CBC WITH DIFFE RENTI AL/PL ATELE T MCHC 33.2 g/dL 31.5-3 5.7 Not Available [facility] ([facility]) [address] [place], [address], 01/28/2025 08:22:53 01/28/20 25 01/28/2025 CBC WITH DIFFE RENTI AL/PL ATELE T RDW 13.6 % 11.7-1 5.4 Not Available [facility] ([facility]) [address] [place], [address], 01/28/2025 08:22:53 01/28/20 25 01/28/2025 CBC WITH DIFFE RENTI AL/PL ATELE T platelets 260 x10e3 /uL 150-45 0 Not Available [facility] ([facility]) [address] [facility], [place], [address], 01/28/2025 08:22:53 01/28/20 25 01/28/2025 CBC WITH DIFFE RENTI AL/PL ATELE T neutrophils 70 % notest ab. Not Available [facility] ([facility]) [address] [facility], [place], [address], 01/28/2025 08:22:53 01/28/20 25 01/28/2025 CBC WITH DIFFE RENTI AL/PL ATELE T lymphs 21 % notest ab. Not Available [facility] ([facility]) [address] [facility], [place], [address], 01/28/2025 08:22:53 01/28/20 25 01/28/2025 CBC WITH DIFFE RENTI AL/PL ATELE T monocytes 6 % notest ab. Not Available [facility] ([facility]) [address] [facility], [place], [address], 01/28/2025 08:22:53 01/28/20 25 01/28/2025 CBC WITH DIFFE RENTI AL/PL ATELE T eos 2 % notest ab. Not Available [facility] ([facility]) [address] [facility], [place], [address], 01/28/2025 08:22:53 01/28/20 25 01/28/2025 CBC WITH DIFFE RENTI AL/PL ATELE T basos 1 % notest ab. Not Available [facility] ([facility]) [address] [facility], [place], [address], 01/28/2025 08:22:53 01/28/20 25 01/28/2025 CBC WITH DIFFE RENTI AL/PL ATELE T neutrophils (absolute) 5.6 x10e3 /uL 1.4-7. 0 Not Available [facility] ([facility]) [address] [place], [address], 01/28/2025 08:22:53 01/28/20 25 01/28/2025 CBC WITH DIFFE RENTI AL/PL ATELE T lymphs (absolute) 1.7 x10e3 /uL 0.7-3. 1 Not Available [facility] ([facility]) [address] [facility], [place], [address], 01/28/2025 08:22:53 01/28/20 25 01/28/2025 CBC WITH DIFFE RENTI AL/PL ATELE T monocytes(ab solute) 0.5 x10e3 /uL 0.1-0. 9 Not Available [facility] ([facility]) [address] [facility], [place], [address], 01/28/2025 08:22:53 01/28/20 25 01/28/2025 CBC WITH DIFFE RENTI AL/PL ATELE T eos (absolute) 0.1 x10e3 /uL 0.0-0. 4 Not Available [facility] ([facility]) [address] [facility], [place], [address], 01/28/2025 08:22:53 01/28/20 25 01/28/2025 CBC WITH DIFFE RENTI AL/PL ATELE T baso (absolute) 0.1 x10e3 /uL 0.0-0. 2 Not Available [facility] ([facility]) [address] [place], [address], 01/28/2025 08:22:53 01/28/20 25 01/28/2025 CBC WITH DIFFE RENTI AL/PL ATELE T immature granulocytes 0 % notest ab. Not Available [facility] ([facility]) [address] [place], [address], 01/28/2025 08:22:53 01/28/20 25 01/28/2025 CBC WITH DIFFE RENTI AL/PL ATELE T immature grans (abs) 0.0 x10e3 /uL 0.0-0. 1 Not Available [facility] ([facility]) [address] [facility], [place], [address], 01/28/2025 08:22:53 02/21/20 23 02/07/2023 DEXA No observ ation record ed. [address], [place], [address], 06/11/2023 17:00:48 Result Notes None recorded. Problems Name Problem SNOMED Code Status Onset Date Resolution Date Notes Provider Name and Address Organization Details Recorded Time Hyperlip idemia 10528165 Active 2018 Not Available [facility] 3 12:40:35 Mixed anxiety and depressi ve disorder 418013287 Active 2020 Not Available [facility] 3 12:40:34 Long-ter m drug therapy Active 2022 Not Available [facility] 3 12:40:35 Body mass index 40+ - severely obese 368057589 Active 2022 Not Available [facility] 3 12:40:35 Menopaus e present 720133139 Completed 202206/11/2023 Jas Perez MD Attn: Accounting ,[address] [facility], [place], [address] , [facility] SI 16:43:28 Pain in both feet 79061030684 561714 Active 2022 Not Available [facility] 3 12:40:34 Hyponatr emia 82216829 Active 2022 Not Available [facility] 3 12:40:35 Persiste nt insomnia 562660577 Active 2022 Not Available [facility] 3 12:40:34 Pain of right shoulder joint 84013634575 520369 Active 2023 Jas Perez MD Attn: Accounting ,[address] [facility], [place], [address] , [place] [facility] 4 16:23:02 Essdoyle l hyperten gerardo 46810460 Active 2015 Not Available [facility] 3 12:40:35 Hypothyr oidism 65614644 Active 2015 Not Available [facility] 3 12:40:35 Menopaus al symptom 92467789 Completed 201107/21/2012 Location : None;Sev erity: Moderate ;Progres s: Stable;A dded By: Patricia Meléndez;Add to Current Problems : NO Not Available [facility] 7 09:35:44 Mineral deficien cy 099254391 Active 2011 Not Available [facility] 3 12:40:34 Contact dermatit is 57812016 Completed 201306/27/2014 Location : None;Sev erity: Moderate ;Progres s: Stable;A dded By: Beronica Juárez;Add to Current Problems : NO Not Available [facility] 7 09:35:44 Eruption 223710635 Completed 201306/27/2014 Location : None;Sev erity: Moderate ;Progres s: Stable;A dded By: Karolina Neely;Add to Current Problems : NO Not Available [facility] 7 09:35:44 Acute sinusiti s 94041064 Completed 201307/23/2014 Location : None;Sev erity: Moderate ;Progres s: Stable;A dded By: Alesha Alcaraz;Add to Current Problems : NO Not Available [facility] 7 09:35:44 Acute sinusiti s 19389822 Completed 201504/15/2016 Location : None;Sev erity: Moderate ;Progres s: Stable;A dded By: Yaquelin Campbell;Add to Current Problems : YES Not Available [facility] 7 09:35:45 Nausea and vomiting 08453495 Completed 201406/19/2015 Location : None;Sev erity: Moderate ;Progres s: Stable;A dded By: Parent, Sylvia E.;Add to Current Problems : YES Not Available [facility] 7 09:35:45 Nausea 966568446 Completed 201407/26/2015 Location : None;Sev erity: Moderate ;Progres s: Stable;A dded By: Parent, Sylvia E.;Add to Current Problems : NO Not Available [facility] 7 09:35:45 Acute sinusiti s 47567944 Completed 201407/26/2015 Location : None;Sev erity: Moderate ;Progres s: Stable;A dded By: Parent, Sylvia E.;Add to Current Problems : YES Not Available [facility] 7 09:35:45 Tobacco dependen ce syndrome [id number] Completed 201407/26/2015 Location : None;Sev erity: Moderate ;Progres s: Stable;A dded By: Parent, Sylvia E.;Add to Current Problems : YES Not Available [facility] 7 09:35:45 Acute bronchit is 98324950 Completed 201505/14/2016 Location : None;Sev erity: Moderate ;Progres s: Stable;A dded By: Parent, Sylvia E.;Add to Current Problems : YES Not Available [facility] 7 09:35:45 Impacted cerumen 39091925 Completed 201505/14/2016 Location : None;Sev erity: Moderate ;Progres s: Stable;A dded By: ParentSylvia E.;Add to Current Problems : YES Not Available [facility] 7 09:35:45 Transien t insomnia 450505448 Completed 201302/28/2014 Location : None;Sev erity: Moderate ;Progres s: Stable;A dded By: Alesha Alcaraz;Add to Current Problems : NO Not Available [facility] 7 09:35:45 Open wound of finger 598068112 Completed 201302/28/2014 Location : None;Sev erity: Moderate ;Progres s: Stable;A dded By: Alesha Alcaraz;Add to Current Problems : NO Not Available [facility] 7 09:35:45 Generali zed anxiety disorder 34380338 Completed 201208/17/2021 Location : None;Sev erity: Moderate ;Progres s: Stable;A dded By: Yaquelin Campbell;Add to Current Problems : YES Patricia Meléndez [facility], [place] - [place] 1 15:52:07 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 2015 Not Available [facility] 3 12:40:35 Dyspnea 379042477 Completed 201207/20/2013 Location : None;Sev erity: Moderate ;Progres s: Stable;A dded By: Claritza Smith; Add to Current Problems : NO Not Available [facility] 7 09:35:45 Acute upper respirat ory infectio n of multiple sites Completed 201211/16/2013 Location : None;Sev erity: Moderate ;Progres s: Stable;A dded By: Claritza Smith; Add to Current Problems : NO Not Available [facility] 7 09:35:45 Neoplasm of uncertai n behavior of skin 06714057 Completed 201503/04/2016 Location : None;Sev erity: Moderate ;Progres s: Stable;A dded By: Claritza Smith; Add to Current Problems : YES Not Available [facility] 7 09:35:45 IgE-medi ated allergic asthma 628469812 Active 2014 Not Available [facility] 3 12:40:35 Single major depressi ve episode, moderate Active 2011 Not Available [facility] 3 12:40:34 Infectiv e otitis externa 87110981 Completed 201206/16/2013 Location : None;Sev erity: Moderate ;Progres s: Stable;A dded By: Patricia Meléndez;Add to Current Problems : NO Not Available [facility] 7 09:35:45 History of fall 844453039 Completed 201206/11/2023 Jas Perez MD Attn: Accounting ,[address] [place], [address] , [facility] 3 16:43:46 Contusio n of chest 92705879 Completed 201207/20/2013 Location : None;Sev erity: Moderate ;Progres s: Stable;A dded By: Patricia Meléndez;Add to Current Problems : NO Not Available [facility] 7 09:35:46 Transien t insomnia 734670774 Completed 201211/30/2013 Location : None;Sev erity: Moderate ;Progres s: Stable;A dded By: Patricia Meléndez;Add to Current Problems : NO Not Available [facility] 7 09:35:46 Acute sinusiti s 70497985 Completed 201211/30/2013 Location : None;Sev erity: Moderate ;Progres s: Stable;A dded By: Patricia Meléndez;Add to Current Problems : NO Not Available [facility] 7 09:35:46 Acute maxillar y sinusiti s 50323030 Completed 201410/03/2015 Location : None;Sev erity: Moderate ;Progres s: Stable;A dded By: Patricia Meléndez;Add to Current Problems : YES Not Available [facility] 7 09:35:46 Senile hyperker atosis 918909959 Completed 201506/11/2023 Jas Perez MD Attn: Accounting ,[address] [place], [address] , [facility] 3 16:43:12 Edema 297725567 Completed 201410/02/2015 Location : None;Sev erity: Moderate ;Progres s: Stable;A dded By: Diane Mckay to Current Problems : NO Not Available [facility] 7 09:36:28 Elevated blood-pr essure reading without diagnosi s of hyperten gerardo 868270201 Completed 201410/02/2015 Location : None;Sev erity: Moderate ;Progres s: Stable;A dded By: Diane Mckay d to Current Problems : NO Not Available [facility] 7 09:36:28 Karen george [id number] Completed 201310/11/2014 Location : None;Sev erity: Moderate ;Progres s: Stable;A dded By: Kyra Adler;Add to Current Problems : YES Not Available [facility] 7 09:36:29 Prediabe mallika 559732267 Active 2016 Not Available [facility] 3 12:40:35 Problem Notes None recorded. Medical Equipment None Reported. Allergies Allergen ID Allergen Name Allergen Category Reaction Reaction Severity Criticality Documentation Date Start Date Code Code System Note Provider Name and Address Organization Details Recorded Time 601192 Prevalite medicatio n Not available Not available Not available 10/18/2021 58052 7 RxNorm const ipati on Patricia wren [facility] 1 16:13:53 Medications Name Sig Start Date Stop Date Status Note LastModified by Organization Details LastModified Time bupropion HCl SR 150 mg tablet,12 hr sustained-r elease Take 1 tablet(s) by mouth daily x 3days then one PO BID 10/18 completed Not Available Not Available Not Available citalopram 40 mg tablet Take 1 tablet(s) by mouth daily 01/15 completed RxNor m: 61004 4;All ow Subst ituti on: True Not Available Not Available Not Available trazodone 50 mg tablet 1 tab at hs 04/29 completed Not Available Not Available Not Available triamcinolo ne acetonide 0.5 % topical cream Apply thin film to affected area bid <2 weeks. 11/09 completed Not Available Not Available Not Available atorvastati n 10 mg tablet TAKE 1 TABLET BY MOUTH EVERY DAY active Not Available Not Available No t Available hydrochloro thiazide 50 mg tablet TAKE 1 TABLET BY MOUTH EVERY DAY 2024 active Not Available Not Available Not Avai lable hydrocodone 5 mg-acetamin ophen 325 mg tablet 02/19 completed Not Available Not Available Not Available meloxicam 15 mg tablet TAKE 1 TABLET (15 MG TOTAL) BY MOUTH DAILY. active Not Available Not Available No t Available promethazin e 12.5 mg tablet Take 1 tablet(s) by mouth q 4 to 6 hr 07/18 completed RxNor m: 86732 8;All ow Subst ituti on: True Not Available Not Available Not Available ondansetron HCl 4 mg tablet Take 1 tablet twice a day by oral route. 08/01 completed Not Available Not Available Not Available prednisone 20 mg tablet TAKE 2 TABLETS BY MOUTH IN MORNING FOR 4 DAYS, THEN 1 TABLET BY MOUTH IN MORNING FOR 4 DAYS 08/15 completed Not Available Not Available Not Available betamethaso ne, augmented 0.05 % topical cream 11/09 completed Not Available Not Available Not Available sertraline 100 mg tablet Take 1 tablet every day by oral route. 06/14 completed Not Available Not Available Not Available Zithromax 250 mg tablet Take 2 tablet(s) by mouth on day 1 then 1 tablet every day for the next 4 days. 07/06 completed RxNor m: 06250 6;All ow Subst ituti on: True Not Available Not Available Not Available metronidazo le 500 mg tablet 02/19 completed Not Available Not Available Not Available Provigil 100 mg tablet Take one tablet PO daily 11/14 completed RxNor m: 09567 6;All ow Subst ituti on: True Not Available Not Available Not Available levothyroxi ne 75 mcg tablet Take 1 tablet every day by oral route. 01/29 completed Not Available Not Available Not Available levothyroxi ne 100 mcg tablet Take 1 tablet every day by oral route in the morning. 01/29 completed Not Available Not Available Not Available citalopram 20 mg tablet 1 po daily 06/04 completed RxNor m: 63276 1;All ow Subst ituti on: True Not Available Not Available Not Available amitriptyli ne 25 mg tablet Take 1 tablet(s) by mouth at bedtime 08/26 completed RxNor m: 08496 4;All ow Subst ituti on: True Not Available Not Available Not Available modafinil 200 mg tablet TAKE 1 TABLET BY MOUTH EVERY DAY active Not Available Not Available No t Available trazodone 100 mg tablet Take 1 tablet by mouth everyday at bedtime 2024 active Not Available Not Available Not Avai lable cephalexin 500 mg capsule one PO TID for 2 weeks 10/20 completed Not Available Not Available Not Available levothyroxi ne 125 mcg tablet TAKE 1 TABLET BY MOUTH EVERY DAY active Not Available Not Available No t Available Synthroid 50 mcg tablet Take 1 tablet(s) by mouth daily 08/04 completed RxNor m: 16308 7;All ow Subst ituti on: True Not Available Not Available Not Available Prevalite 4 gram powder for suspension in a packet 10/18 completed Not Available Not Available Not Available betamethaso ne, augmented 0.05 % topical ointment 10/20 completed Not Available Not Available Not Available hydrocodone 5 mg-acetamin ophen 500 mg tablet Take 1 tablet(s) by mouth q 4 to 6 hr prn 09/17 completed RxNor m: 73799 3;All ow Subst ituti on: True Not Available Not Available Not Available hydrochloro thiazide 25 mg tablet take one po daily 01/29 completed Not Available Not Available Not Available Wellbutrin 100 mg tablet take 1 1/2 tab bid 10/30 completed RxNor m: 20433 8;All ow Subst ituti on: True Not Available Not Available Not Available cefuroxime axetil 500 mg tablet Take 1 tablet(s) by mouth bid for 10 days 11/02 completed Not Available Not Available Not Available methylpredn isolone 4 mg tablets in a dose pack Take as directed 10/20 completed Not Available Not Available Not Available ketoconazol e 2 % topical cream APPLY TO THE AFFECTED AREA(S) BY TOPICAL ROUTE ONCE DAILY 10/20 completed Not Available Not Available Not Available sertraline 50 mg tablet Take 1 tablet every day by oral route. 01/15 completed Not Available Not Available Not Available loratadine 10 mg tablet Take 1 tablet by oral route. 04/29 completed Not Available Not Available Not Available naproxen 500 mg tablet Take 1 po bid as needed 09/17 completed RxNor m: 96636 4;All ow Subst ituti on: True Not Available Not Available Not Available levothyroxi ne 112 mcg tablet PLEASE SEE ATTACHED FOR DETAILED DIRECTION S active Not Available Not Available No t Available amoxicillin 875 mg-potassiu m clavulanate 125 mg tablet TAKE 1 TABLET BY MOUTH EVERY 12 HOURS FOR 7 DAYS 06/22 completed Not Available Not Available Not Available neomycin-po lymyxin-hyd rocort 3.5 mg-10,000 unit/mL-1 % ear drops,susp 11/09 completed Not Available Not Available Not Available bupropion HCl SR 200 mg tablet,12 hr sustained-r elease TAKE 1 TABLET BY MOUTH TWICE A DAY 12/05 completed Not Available Not Available Not Available Ciprodex 0.3 %-0.1 % ear drops,suspe nsion 08/01 completed Not Available Not Available Not Available cholestyram ine-asparta me 4 gram oral powder for susp in a packet Take 1 packet every day by oral route. 2020 active Not Available Not Available Not Avai lable bupropion HCl XL 300 mg 24 hr tablet, extended release Take 1 tablet by mouth every day in the morning 2024 active Not Available Not Available Not Avai lable Wellbutrin XL 150 mg 24 hr tablet, extended release Take one tablet PO TID 05/19 completed RxNor m: 66968 5;All ow Subst ituti on: True Not Available Not Available Not Available ProAir HFA 90 mcg/actuati on aerosol inhaler Inhale 2 puffs every 4-6 hours by inhalatio n route as needed. 02/19 completed Not Available Not Available Not Available Nuvigil 150 mg tablet Take 1 tablet(s) by mouth qam 05/16 completed RxNor m: 13277 9;All ow Subst ituti on: True Not Available Not Available Not Available GaviLyte-G 236 gram-22.74 gram-6.74 gram-5.86 gram oral solution 12/02 completed Not Available Not Available Not Available Prevnar 13 (PF) 0.5 mL intramuscul ar syringe 10/18 completed Not Available Not Available Not Available bupropion HCl 150 mg tablet,12 hr sustained-r elease(smok ing deterrent) 10/18 completed Not Available Not Available Not Available Fluad Quad 5662-5016(6 5yr up)(PF) 60 mcg (15 mcg x 4)/0.5mL IM syringe 12/02 completed Not Available Not Available Not Available Vitals Date Recorded Body height Body mass index (BMI) Body weight Body temperature Oxygen saturation Oxygen saturation in Arterial blood by Pulse oximetry Heart rate Systolic blood pressure Diastolic blood pressure Provider Name and Address Organization Details Last Updated DateTime 4 167.64 cm 44 kg/m2 282416. 22 g 98.2 [degF] 95 % 95 % 78 /min 125 mm[Hg] 78 mm[Hg] Marty Fox MA [facility] 4 15:03:02 Date Recorded Body height Body mass index (BMI) Body weight Oxygen saturation Oxygen saturation in Arterial blood by Pulse oximetry Body temperature Heart rate Systolic blood pressure Diastolic blood pressure Provider Name and Address Organization Details Last Updated DateTime 5 167.64 cm 43.4 kg/m2 619188. 05 g 93 % 93 % 97.2 [degF] 79 /min 107 mm[Hg] 69 mm[Hg] Durga Garduno MA [facility] 5 15:16:22 Date Recorded Oxygen saturation Oxygen saturation in Arterial blood by Pulse oximetry Provider Name and Address Organization Details Last Updated DateTime 03/22/2023 99 % 99 % DARRIUS Gordon Attn: Accounting,[address] [place], [address], [facility] 03/22/2023 16:30:50 Date Recorded Body height Body mass index (BMI) Body weight Body temperature Heart rate Systolic blood pressure Diastolic blood pressure Provider Name and Address Organization Details Last Updated DateTime 3 167.64 cm 41.5 kg/m2 439333. 24 g 97.5 [degF] 84 /min 128 mm[Hg] 79 mm[Hg] Maikel Marsh MA [facility] 3 16:11:56 Date Recorded Body height Body mass index (BMI) Body weight Body temperature Oxygen saturation Oxygen saturation in Arterial blood by Pulse oximetry Heart rate Systolic blood pressure Diastolic blood pressure Provider Name and Address Organization Details Last Updated DateTime 3 167.64 cm 42.8 kg/m2 240199. 38 g 98.2 [degF] 95 % 95 % 65 /min 111 mm[Hg] 66 mm[Hg] Marty Fox MA [facility] 3 16:18:57 Date Recorded Body height Body mass index (BMI) Body weight Oxygen saturation Oxygen saturation in Arterial blood by Pulse oximetry Heart rate Body temperature Systolic blood pressure Diastolic blood pressure Provider Name and Address Organization Details Last Updated DateTime 4 167.64 cm 43.3 kg/m2 806839. 76 g 93 % 93 % 83 /min 98 [degF] 135 mm[Hg] 78 mm[Hg] Juli Davis MA [place] [facility] 4 15:23:57 Social History Question Answer Notes LastModified by Organizat ion Details LastModified Time Tobacco Smoking Status Former Smoker quit 2017 Jas Perez MD Attn: [facility],[address] [place], [address], [facility] 06/11/2023 17:03:05 Do You Have An Advance Directive? No Information not available 08/17/2021 Are You Blind Or Do You Have Difficulty Seeing? No Information not available 08/17/2021 What Is Your Level Of Caffeine Consumption? Moderate Information not available 05/03/2021 Are You Deaf Or Do You Have Serious Difficulty Hearing? Yes Information not available 08/17/2021 What Type Of Diet Are You Following? REGULAR Information not available 08/17/2021 What Was The Date Of Your Most Recent Tobacco Screening? 07/01/2024 Information not available 07/01/2024 What Is Your Current Pack Years? 20-29packyea rs [email or web address] Information not available 06/11/2023 What Is Your Relationship Status? Information not available 08/17/2021 Do You Use Your Seat Belt Or Car Seat Routinely? Yes Information not available 08/17/2021 Do You Have Smoke And Carbon Monoxide Detectors In Your Home? Yes Information not available 08/17/2021 Are You Passively Exposed To Smoke? No Information not available 08/17/2021 How Much Tobacco Do You Smoke? No Information not available 07/01/2024 Has Tobacco Cessation Counseling Been Provided? No Information not available 05/03/2021 How Many Years Have You Smoked Tobacco? 20 [email or web address] Information not available 10/20/2019 Sex: Female Functional Status Question Answer Note LastModified by Organizat ion Details LastModified Time Do you use any illicit or recreational drugs? No Information not available 05/03/2021 Do you or have you ever used any other forms of tobacco or nicotine? No Information not available 05/03/2021 What is your level of alcohol consumption? None Information not available 05/03/2021 Do you or have you ever used smokeless tobacco? Never used smokeless tobacco Information not available 11/09/2020 Are you currently employed? No Information not available 08/17/2021 Are you able to care for yourself? Yes Information not available 08/17/2021 Do you or have you ever used e-cigarettes or vape? Never used electronic cigarettes Information not available 11/09/2020 What is your exercise level? None Information not available 08/17/2021 Mental Status Question Answer Note LastModified by Organization D etails LastModified Time Do you feel stressed (tense, restless, nervous, or anxious, or unable to sleep at night)? [id number] Information not available 08/17/2021 Family History Relationship Description Onset Age of this Age Resolved Age Notes LastModified by Organization Details LastModified Time Sister Primary malignant neoplasm of lung 63 65 [email or web address] Not available 2015 12:34:20 Sister Diffuse non-Hodgkin' s lymphoma 68 [email or web address] Not available 11/02 12:35:48 Sister Hyperlipidem ia [email or web address] Not available 01/2017 13:17:52 Sister Type 1 diabetes mellitus [email or web address] Not available 01/2017 13:18:35 Sister Malignant neoplasm of rectum 60 [email or web address] Not available 2021 15:34:39 Father Primary malignant neoplasm of lung 72 [email or web address] Not available 2015 12:35:16 Father Myocardial infarction [email or web address] Not available 13:18:04 Mother Rheumatoid arthritis [email or web address] Not available 01/2017 13:18:44 Brother Sleep apnea [email or web address] Not a vailable 05/28/2017 13:18:54 Notes:Heart Problems-[facility]cles Medical History Condition Response Anxiety Disorder Y High Blood Pressure Y Thyroid Problems Y Gynecological History Statement/Question Response Menses Monthly N Obstetrics History GPAL:G 0 P 0 0 0 0 Immunizations Vaccine Type Date Status Note Provider Nam e and Address Organization Details Recorded Time COVID-19, mRNA, LNP-S, PF, 30 mcg/0.3 mL dose 1 completed Kenia Sousa [place] null, [place] [facility] 08/17/2021 15:16:03 COVID-19, mRNA, LNP-S, PF, 30 mcg/0.3 mL dose 1 completed Kenia Sousa [place], [place] [facility] 08/17/2021 15:16:12 Pneumococcal conjugate PCV 13 0 completed Patricia Meléndez [place], [place] [facility] 10/18/2021 16:20:09 COVID-19, mRNA, LNP-S, bivalent, PF, 30 mcg/0.3 mL dose 2 completed Jennifer Chew [place], [place] [facility] 10/10/2022 22:29:38 Influenza, high-dose, quadrivalent, PF 2 completed [place] Chew [place], [place] [facility] 10/10/2022 22:30:12 zoster recombinant 3 completed [place] Chew [place], [place] [facility] 09/21/2023 10:53:58 COVID-19, mRNA, LNP-S, PF, blair-sucrose, 30 mcg/0.3 mL 3 completed [place] Chew [place], [place] [facility] 09/21/2023 10:54:20 COVID-19, mRNA, LNP-S, PF, 50 mcg/0.5 mL 4 completed [place] Chew [place], [place] [facility] 08/29/2024 13:57:13 Influenza, high-dose, trivalent, PF 4 completed [place] Chew [place], [place] [facility] 08/29/2024 13:57:13 Influenza, split virus, quadrivalent, preservative 9 completed Not Available [facility] 12/13/2019 02:38:46 Influenza, split virus, quadrivalent, preservative 1 completed Kenia Sousa [place], [place] [facility] 08/17/2021 17:08:35 Tdap 4 completed Claritza Sandra [place], [place] [facility] 11/02/2016 11:51:40 pneumococcal polysaccharide PPV23 1 completed Claritza Sandra [place] [facility] 11/02/2016 11:51:53 Pneumococcal conjugate PCV20, polysaccharide [id number] conjugate, adjuvant, PF 3 completed Jas Perez MD Attn: Accounting[address] [place], [address], [facility] 12/12/2022 09:45:55 Tdap 9 completed Not Available [facility] 11/29/2016 06:02:34 Tdap 4 completed Marty Fox [place], [place] [facility] 01/01/2024 17:06:47 Past Encounters Encounter ID Performer Location Encounter Start Date Encounter Closed Date Diagnosis/Indication Diagnosis SNOMED-CT Code Diagnosis ICD10 Code Diagnosis Note [id number] Patricia Meléndez MD [facility] [address] [facility] [place] [facility] [place] [place] [address] 11/02/2016 11:41:26 11/03/2016 15:16:37 Mixed anxiety and depressive disorder 649704485 F41.8 [id number] Patricia Meléndez MD [facility] [address] [place] [address] 01/15/2017 17:01:40 01/16/2017 12:30:34 Single major depressive episode, moderate 595926692 F32.1 Acute maxi llary sinusitis 67002513 J01.00 Essential hypertension 32362566 I10 Hypothyroidism 80890964 E03.9 [id number] Patricia Meléndez MD [facility] [address] [place] [address] 06/14/2017 15:28:43 06/14/2017 17:46:40 Essential hypertension 13602982 I10 Mixed anxi ety and depressive disorder 363035893 F41.8 Fatigue 25100703 R53.83 TSH lipid , BMP Acute maxi llary sinusitis 43611216 J01.00 [id number] Patricia Meléndez MD [facility] [address] [place] [address] 06/21/2017 11:15:27 06/21/2017 16:27:38 Hypothyroidism 62959160 E03.9 Essential hypertension 68425511 I10 [id number] Patricia Meléndez MD [facility] [address] [place] [address] 06/26/2017 09:21:20 06/26/2017 13:09:08 Glucose level outside reference range 079304847 R73.09 [id number] Patricia Meléndez MD [facility] [address] [place] [address] 07/19/2017 16:37:00 07/19/2017 17:38:02 Essential hypertension 01593984 I10 Single marleni or depressive episode, moderate 596749677 F32.1 Acute maxi llary sinusitis 59462727 J01.00 if patient calls back get Ct sinuses Nausea 151810735 R11.0 [id number] Patricia Meléndez MD [facility] [address] [place] [address] 01/29/2018 16:28:21 01/29/2018 17:23:23 Essential hypertension 58995898 I10 I gave written order to patient for lipid, BMP, AST, and TSH Single marleni or depressive episode, moderate 181500586 F32.1 Hypothyroidism 18178733 E03.9 doing well with med and attributes some weight loss to this Intentiona l weight loss 111835279 R63.8 lost 7 pounds [id number] Patricia Meléndez MD [facility] [address] [place] [address] 02/04/2018 09:44:52 02/04/2018 16:43:10 Hypothyroidism 18136432 E03.9 Essential hypertension 80938125 I10 Prediabetes 947744713 R7 3.03 [id number] Patricia Meléndez MD [facility] [address] [place] [address] 08/01/2018 16:15:34 08/02/2018 11:38:46 Prediabetes 817957571 R73.03 I gave written order Essential hypertension 55193529 I10 Acute maxi llary sinusitis 76884905 J01.00 Persistent cough 6022991 02 R05 [id number] Patricia Meléndez MD [facility] [address] [place] [address] 10/31/2018 12:16:12 11/01/2018 11:22:23 Acute maxillary sinusitis 43213752 J01.00 Mixed hyperlipidemia 267 631487 E78.2 Fatigue 00985077 R53.83 I ordered lipid BMp and TSH [id number] Patricia Meléndez MD [facility] [address] [place] [address] 02/19/2019 15:28:38 02/20/2019 09:06:00 Essential hypertension 33828952 I10 Prediabetes 416643858 R7 3.03 Hypothyroidism 30524201 E03.9 Allergic r hinitis caused by pollen 44481058 J30.1 Single marleni or depressive episode, moderate 055195488 F32.1 Body mass index 40+ - severely obese 384199534 Z68.41 Normal grief reaction 27 6414168 F43.20 [id number] Patricia Meléndez MD [facility] [address] [place] [address] 05/07/2019 15:48:25 05/07/2019 17:20:41 Generalized anxiety disorder 72496627 F41.1 Essential hypertension 07538966 I10 Single marleni or depressive episode, moderate 149124717 F32.1 Normal grief reaction 27 8837784 F43.20 [id number] Patricia Meléndez MD [facility] [address] [place] [address] 06/19/2019 14:20:09 06/19/2019 16:19:56 Tinea pedis 9018289 B35.3 Foot pain 78615379 M79.6 71 M79.314 [id number] Patricia Meléndez MD [facility] [address] [place] [address] 10/20/2019 10:25:58 10/20/2019 14:05:35 Hyperlipidemia 28219988 E78.5 Generalize d anxiety disorder 47361561 F41.1 Essential hypertension 91028980 I10 Administra tion of influenza vaccine 76217504 Z23 Prediabetes 821538676 R7 3.03 [id number] Patricia Meléndez MD [facility] [address] [place] [address] 04/29/2020 15:00:44 04/29/2020 16:57:36 Hypothyroidism 49782178 E03.9 Single marleni or depressive episode, moderate 909515134 F32.1 Hyperlipidemia 34484355 E78.5 Essential hypertension 07930422 I10 [id number] Patricia Melénedz MD [facility] [address] [place] [address] 05/25/2020 13:41:56 05/25/2020 16:40:05 Change in skin lesion 429347013 L98.9 Lesion of face 186901837 L98.9 [id number] Patricia Meléndez MD [facility] [address] [place] [address] 11/09/2020 12:46:18 2020 14:49:42 Single major depressive episode, moderate 143224798 F32.1 Hyperlipidemia 89369660 E78.5 Generalize d anxiety disorder 55029805 F41.1 Essential hypertension 09462496 I10 Hypothyroidism 72295456 E03.9 Prediabetes 086207084 R7 3.03 [id number] Patricia Meléndez MD [facility] [address] [place] [address] 05/03/2021 13:13:57 05/04/2021 14:50:03 Essential hypertension 85842899 I10 Hypothyroidism 65149431 E03.9 Single marleni or depressive episode, moderate 552535656 F32.1 Hyperlipidemia 57150022 E78.5 Body mass index 40+ - severely obese 381457291 Z68.41 [id number] Patricia Meléndez MD [facility] [address] [place] [address] 08/17/2021 15:06:23 08/17/2021 16:46:54 Hyperlipidemia 29392999 E78.5 Essential hypertension 84013903 I10 Hypothyroidism 51866151 E03.9 Mixed anxi ety and depressive disorder 681764556 F41.8 Administra tion of influenza vaccine 40198661 Z23 Chronic diarrhea 9138759 09 K52.9 not due for colonoscop y until 08/2024 [id number] Patricia Meléndez MD [facility] [address] [place] [address] 10/18/2021 13:14:15 10/19/2021 09:43:05 Mixed anxiety and depressive disorder 061562282 F41.8 Chronic diarrhea 5993425 09 K52.9 not due for colonoscop y until 08/2024 - resolved with prevalite then metamucil [id number] Patricia Meléndez MD [facility] [address] [place] [address] 06/05/2022 14:33:36 06/05/2022 16:32:41 Mixed anxiety and depressive disorder 896082494 F41.8 Single marleni or depressive episode, moderate 245568781 F32.1 Essential hypertension 91127590 I10 Hyperlipidemia 19595232 E78.5 Hypothyroidism 37915802 E03.9 Obstructiv e sleep apnea syndrome 12664981 G47.33 Prediabetes 249978461 R7 3.03 Family his tory of cancer of colon 766390247 Z80.0 SISTER HAS RECTAL CANCER [id number] Jas Perez MD [facility] [address] [place] [address] 12/05/2022 15:43:57 12/12/2022 12:10:18 Essential hypertension 23934670 I10 # HTN - Controlled - Continue current medication s. No change in management - Encouraged routine blood pressure checksat home, targetless than 140/90 - DiscussedD EDISON diet(https ://www.nhl bi.nih.gov /files/doc s/public/h eart/dash_ brief.pdf) anddietary sodium restrictio ns - Continue/I ncrease dietary efforts and physical activity Hyperlipidemia 10791260 E78.5 # Hyperlipid emia- Last lipid panel < 1 year ago- ACC/AHA CV risk < 7.5%- Repeat prior to next visit- Continue with current management without changes.- Focus on a dietlow in saturated fats(https ://www.[facility].or g/educatio n/guidelin es-for-a-l ow-cholest donta-low-s aturated-f at-diet),b lood pressure control,sm oking cessation( http://owen tyes.org/) anddaily exerciseto reduce your risk ofheart disease and stroke. Mixed anxi ety and depressive disorder 621351600 F41.8 # Anxiety / Depression RAFAEL-7 score: 0. none (0-4)PHQ9 score: 6. mild (5-9), recurrent. StableCont inue meds. Hypothyroidism 69191836 E03.9 # Hypothyroi dismCheck thyroid stimulatin g hormone and adjust medication as indicated IgE-mediat ed allergic asthma 062532722 J45.909 # AsthmaWell controlled .Maintain current tx step. Body mass index 40+ - severely obese 360029334 Z68.41 Focus on a healthy diet, avoid added salt, and woeiqk4508 calories or less daily. Exercise as tolerated, targeting3 0-60 minutes of exercise daily, at least 5 days per week Screening for malignant neoplasm of breast 263233523 Z12.39 Menopause present 193062 006 N95.1 Z13.820 Screening for osteoporosis 549708808 Z13.820 Long-term drug therapy 999554462 Z79.899 Checking routine labwork for ongoing long-term medication use. Administra tion of pneumococcal vaccine 25552824 Z23 [id number] DARRIUS Gordon [facility] [address] [place] [address] 03/22/2023 15:42:37 03/23/2023 11:07:09 Acute upper respiratory infection 17930319 J06.9 Get plenty of rest, push fluids, vaporizer, saline nasal spray, robitussin for cough prn, tylenol for REYNAGA prn, call back if persistent colored nasal drainage or sputum, fevers, sinus pain, SOB. [id number] Jas Perez MD [facility] [address] [facility] [address] 06/11/2023 15:29:45 06/12/2023 09:41:13 Essential hypertension 44990462 I10 # HTN - Controlled - Continue current medication s. No change in management - Encouraged routine blood pressure checksat home, targetless than 140/90 - DiscussedD EDISON diet(https ://www.nhl bi.nih.gov /files/doc s/public/h eart/dash_ brief.pdf) anddietary sodium restrictio ns - Continue/I ncrease dietary efforts and physical activity Hyperlipidemia 81573868 E78.5 # Hyperlipid emia- Last lipid panel < 1 year ago- ACC/AHA CV risk < 7.5%- Repeat in one year- Continue with current management without changes.- Focus on a dietlow in saturated fats(https ://www.[facility] fhealth.or g/educatio n/guidelin es-for-a-l ow-cholest donta-low-s aturated-f at-diet),b lood pressure control,sm oking cessation( http://owen tyes.org/) anddaily exerciseto reduce your risk ofheart disease and stroke. Mixed anxi ety and depressive disorder 298368908 F41.8 # Anxiety / Depression RAFAEL-7 score: 0. none (0-4)PHQ9 score: 0. none (0-4), recurrent. StableCont inue meds. Hypothyroidism 70568342 E03.9 # Hypothyroi dism Stable by symptoms TSH checked < year ago Continue current management without change IgE-mediat ed allergic asthma 856061292 J45.909 # AsthmaWell controlled .Maintain current tx step. Prediabetes 391351304 R7 3.03 hemoglobin A1c 6.1Continu e dietary and lifestyle interventi onsrecheck in one year Body mass index 40+ - severely obese 409127123 Z68.41 Focus on a healthy diet, avoid added salt, and ffdoqq7859 calories or less daily. Exercise as tolerated, targeting3 0-60 minutes of exercise daily, at least 5 days per week Long-term drug therapy 458353073 Z79.899 Reviewed routine labwork for ongoing long-term medication use. Hyponatremia 53974668 E8 7.1 possible function of high-dose thiazide diuretic, bupropion- will decrease diuretic by , monitor blood pressure, recheck in 1 month [id number] Jas Perez MD [facility] [address] [place] [address] 01/01/2024 14:45:23 01/02/2024 11:42:55 Essential hypertension 68539145 I10 # HTN - Controlled - Continue current medication s. No change in management - Encouraged routine blood pressure checksat home, targetless than 140/90 - DiscussedD EDISON diet(https ://www.nhl bi.nih.gov /files/doc s/public/h eart/dash_ brief.pdf) anddietary sodium restrictio ns - Continue/I ncrease dietary efforts and physical activity Hyperlipidemia 48203393 E78.5 # Hyperlipid emia- Last lipid panel < 1 year ago- ACC/AHA CV risk < 7.5%- Repeat prior to next visit- Continue with current management without changes.- Focus on a dietlow in saturated fats(https ://www.[facility] fhealth.or g/educatio n/guidelin es-for-a-l ow-cholest donta-low-s aturated-f at-diet),b lood pressure control,sm oking cessation( http://owen tyes.org/) anddaily exerciseto reduce your risk ofheart disease and stroke. Mixed anxi ety and depressive disorder 204953811 F41.8 # Anxiety / Depression RAFAEL-7 score: 1. none (0-4)PHQ9 score: 3. none (0-4), recurrent. StableCont inue meds. Hypothyroidism 14824885 E03.9 # Hypothyroi dism Stable by symptoms TSH checked < year ago Continue current management without change IgE-mediat ed allergic asthma 317327615 J45.909 # AsthmaWell controlled .Maintain current tx step. Prediabetes 611251919 R7 3.03 hemoglobin A1c 6.1Continu e dietary and lifestyle interventi onsrecheck with next visit Body mass index 40+ - severely obese 547354405 Z68.41 Focus on a healthy diet, avoid added salt, and zlpuxz4836 calories or less daily. Exercise as tolerated, targeting3 0-60 minutes of exercise daily, at least 5 days per week Long-term drug therapy 089307644 Z79.899 Reviewed routine labwork for ongoing long-term medication use. Hyponatremia 35679552 E8 7.1 history, near normal 5 months ago; probably tied to high-dose thiazide diuretic, bupropion- recheck Administra tion of diphtheria, pertussis, and tetanus vaccine 098476297 Z23 [id number] Jas Perez MD [facility] [address] [place] [address] 07/01/2024 14:40:03 07/02/2024 10:21:48 Body mass index 40+ - severely obese 211164338 Z68.41 Focus on a healthy diet, avoid added salt, and cljvep8841 calories or less daily. Exercise as tolerated, targeting3 0-60 minutes of exercise daily, at least 5 days per week Long-term drug therapy 436192019 Z79.899 Reviewed routine labwork for ongoing long-term medication use. Mixed anxi ety and depressive disorder 064266560 F41.8 # Anxiety/De pression RAFAEL-7 score: 0, none (0 4) PHQ-9 score: 0, minimal (0 4) Stable, continue current treatment. - Recommende d Cognitive Behavioral Therapy (https://w jairon.psychol ogytoday.c /us/ther apy-types/ cognitive- behavioral -therapy) - Encouraged relaxation techniques (https://michelle de la o.[facility]/idalia hamm/cdr o/learning -- Communitie s/wellness /stress/st ress_hando uts/) - Stress management resources (https://michelle de la o.[facility]/idalia hamm/cdr o/learning -- Communitie s/wellness /stress/st ress_resou rces/) - Self-care handouts (https://jaja shepherd.[facility].e sunita/self-ca re-handout s/) - Recommende d mindfulnes s meditation and exercise. - Sleep hygiene (https://o fpomcenter .[facility].edu/s leep-hygie ne/) Hyperlipidemia 37788296 E78.5 # Hyperlipid emia Last lipid panel < 1 year ago ACC/AHA CV risk > 7.5% Repeat in one year Continue with current management without changes. Focus on a dietlow in saturated fats(https ://www.[facility].or g/educatio n/guidelin es-for-a-l ow-cholest donta-low-s aturated-f at-diet),b lood pressure control,sm oking cessation( http://owen tyes.org/) anddaily exerciseto reduce your risk ofheart disease and stroke. Essential hypertension 15786857 I10 # HTN Controlled Continue current medication s. No change in management Encouraged routine blood pressure checksat home, targetless than 140/90 DiscussedD EDISON diet(https ://www.nhl bi.nih.gov /files/doc s/public/h eart/dash_ brief.pdf) anddietary sodium restrictio ns Continue/I ncrease dietary efforts and physical activity Hypothyroidism 34401767 E03.9 # Hypothyroi dism Daytime fatigue - but takes modafinil from sleep medicine TSH checked < year ago Adjust dosing based on lab results - repeat in July IgE-mediat ed allergic asthma 727349167 J45.909 # AsthmaWell controlled .Maintain current tx step. Prediabetes 932438322 R7 3.03 hemoglobin A1c 6.0, < 1 year agoContinu e dietary and lifestyle interventi ons Pain of ri ght shoulder joint 4023610890 1410616 M25.511 suspicious for deltoid bursitis, given onset after injection, no history of injuryoral corticoste roids, ice, handoutspo rts medicine/ orthopedic s referral, imaging if no improvemen t [id number] Dina Hairston MD [facility] [address] [place] [address] 01/27/2025 14:55:38 01/28/2025 09:18:28 Essential hypertension 14486860 I10 -Controlle d on current therapy. -Goals: BP < 140/90 per JNC8, prevent CV and renal comorbidit ies. -Should notify office for BP less than 90/60. -Maintain a low sodium (less than 2000mg) diet and encouraged at least 30-45 minutes of aerobic activity most days of the week -Healthy weight -f/u 6 months Hyperlipidemia 29514572 E78.5 Follow a low fat and low cholestero l diet.Reduc e dietary intake of fat to less than 30% of total calories.L imit total cholestero l to less than 200mg per day.Minimi ze use of trans fatty acids.Incr ease intake of fiber, vegetables , fruits and other whole grains.Par ticipate in aerobic exercise (at least 30 minutes 4 days a week).Avoi d tobacco products. --will have labs checked in April. Prediabetes 343842391 R7 3.03 -A1C last April was 6.0.-Advis ed to cut the carbohydra mallika in diet (bread, pasta, rice, potatoes, and sweets) and increase physical activity to goal of 150 min of aerobic activity weekly.-wi ll recheck in April. Hypothyroidism 34002445 E03.9 -pt is having increased fatigue, hair loss, diarrhea and having a hard time loosing weight. Will recheck TSH + t4 today and treat appropriat yanira. Health Concerns Section Related Observation LastModified by Organization Detai ls LastModified Time None Recorded Concern Status LastModified by Organization Details LastModified Time None Recorded Advance Directives Directive N: Payers Encounter Date Sequence Insurance Name Policy Number Policy Barnett Covered Member ID Barnett Member ID Guarantor Name 03/22/2023 1 [employer] (MEDICARE REPLACEMENT/A DVANTAGE - HMO) [id number] Maria Del Carmen Mccartney [id number] Maria Del Carmen Mccartney 06/11/2023 1 [employer] (MEDICARE REPLACEMENT/A DVANTAGE - HMO) [id number] Maria Del Carmen Mccartney [id number] Maria Del Carmen Mccartney 01/01/2024 1 [facility] (MEDICARE REPLACEMENT/A DVANTAGE - PPO) [id number] Maria Del Carmen Mccartney [id number] Maria Del Carmen Mccartney 07/01/2024 1 [facility] (MEDICARE REPLACEMENT/A DVANTAGE - PPO) [id number] Maria Del Carmen Mccartney [id number] Maria Del Carmen Mccartney 01/27/2025 1 [facility] (MEDICARE REPLACEMENT/A DVANTAGE - PPO) [id number] Maria Del Carmen Acosta Bib [id number] Maria Del Carmen Mccartney Notes Date Note Type Note Provider Name and Address Organization Details Recorded Time 03/22/20 text/htm l Sinusitis/AllergyReported bypatient.Associated Symptoms:nasal discharge from right nostrils;fever/chills;headache forehead;facial pain bilaterally;sinus pain nasal;thick phlegm in throat;constantly clearing the throat;nasal discharge;nasal passage blockage bilaterally;ear fullness;pain behind the eyes both Onset/Timing:initially started 3weeks ago Quality:minimal discomfort;congested;productive cough(yellow) Severity:limits daily activities Context:recent sick contacts;worse with seasonal allergen exposure;worse with environmental exposure Patient here for 3 weeks of upper respiratory symptoms such as sore throat, productive cough, nasal congestion, shortness of breath (asthma). Originally had fever but that has resolved for the last week. Has not had wheezing, chest pain, or abdominal upset. Has been taking allergy medicine, mucinex, and nyquil. Does have hx of exercise induced asthma. DARRIUS Gordon Attn: Accounting, [address] [place], [address], [facility] 03/22/2023 17:17:15 06/11/20 text/htm l HyperlipidemiaReported bypatient.Duration:chronic Control:usually well controlled; improving; at goal;not at goal Current Therapy:currently taking: (atorvastatin 10 mg tablet); last cholesterol level: (136); last triglyceride level: (192) Compliance:compliant; compliant with diet; exercises Complications:no coronary artery disease; no peripheral artery disease; no cardiovascular diseaseHypertension F/UReported bypatient.Associated Symptoms:no dizziness; no lightheadedness; no chest pain; no shortness of breath; no palpitations; no edema; no calf pain with exertion Lifestyle:not exercising regularly;high salt intake Medications:taking medications as directed; no side effects from medication; checks blood pressure at home, range: (does not check) 6-MONTH FOLLOW-UP VISIT/SUBJECTIVE: Elliott presents for routine 6-month follow-up of hypertension, hyperlipidemia, depression with anxiety, and prediabetes, among other chronic conditions Last office visit: labwork: 64Jam72 Patient reports consistent use of medications, without side effects or intolerances. Current concerns:- saw Dr. Luna for chronic foot pain-- high arches, getting inserts- excessive dryness to feet- lines in fingernails - no pain or other symptoms Health maintenance:- Immunizations due: vzv- Colorectal cancer screenin20Dev29 - Fedder - 10yrfu- Well-woman exam: not indicated- Mammography: - DEXA: - normal- LDCT: 20+ pack-years - yearly screening per pulmonology Hypertension- On hydrochlorothiazide- Consistent use of medications- Does not report any headaches, blurry vision, chest pain, shortness of breath, or palpitations- Following a low salt diet.- Not exercising Hyperlipidemia- Consistent use of lipid-lowering medication(s)- No side effects- Following a low-cholesterol diet- Last lipid panel < 1 year ago Hypothyroidism- Patient is on levothyroxine (synthetic T4)- Consistent use of medication- Denies palpitations, fatigue, weight gain, cold intolerance, constipation, or dry skin (except feet)- Last TSH was < 1 year ago Anxiety/Depression/Insomnia- Consistent use of medications. No side effects- Not attending psychotherapy/counseling- Experiencing less physical and emotional stress- Not exercising- Sleeping more than 6 hours- Denies panic attacks- No chest pain, palpitations, dyspnea, or gastrointestinal symptoms- Denies depression- Denies suicidal ideation- Denies manic symptoms- Denies hallucinations Asthma - On no inhalers at this time - No activity limits - No hospitalizations for exacerbations during the last year -Call Or Contact Centre Coach/Nursing note reviewed.- Jas Perez MD Attn: Accounting, [address] [place], [address], [facility] 06/11/2023 17:43:49 01/01/20 24 text/htm l HyperlipidemiaReported bypatient.Duration:chronic Control:usually well controlled; improving; at goal;not at goal Current Therapy:currently taking: (atorvastatin 10 mg tablet) Compliance:compliant; compliant with diet; exercises Complications:no coronary artery disease; no peripheral artery disease; no cardiovascular diseaseHypertension F/UReported bypatient.Associated Symptoms:no dizziness; no lightheadedness; no chest pain; no shortness of breath; no palpitations; no edema; no calf pain with exertion Lifestyle:not exercising regularly;high salt intake Medications:taking medications as directed; no side effects from medication; checks blood pressure at home, range: (does not check) 6-MONTH FOLLOW-UP VISIT/SUBJECTIVE: Elliott presents for routine 6-month follow-up of hypertension, hyperlipidemia, depression with anxiety, and prediabetes, among other chronic conditions Last routine follow-up office visit: 88Bso59Dukt labwork: 99Deb34 (BMP), 97Vct78(A1c), 21Yeg83 Patient reports consistent use of medications, without side effects or intolerances. Current concerns:- none Health maintenance:- Immunizations due: vzv#2, RSV,Tdap, flu- Colorectal cancer screenin39Wzm73 - Fedder - 10yrfu- Well-woman exam: not indicated- Mammography: 31Glt15- DEXA: 85Bwm49 - normal- LDCT: 20+ pack-years - yearly screening per pulmonology Hypertension- On hydrochlorothiazide- Consistent use of medications- Does not report any headaches, blurry vision, chest pain, shortness of breath, or palpitations- Following a low salt diet.- Not exercising Hyperlipidemia- Consistent use of lipid-lowering medication(s)- No side effects- Following a low-cholesterol diet- Last lipid panel < 1 year ago Hypothyroidism- Patient is on levothyroxine (synthetic T4)- Consistent use of medication- Denies palpitations, fatigue, weight gain, cold intolerance, constipation, or dry skin (except feet)- Last TSH was < 1 year ago Anxiety/Depression/Insomnia- Consistent use of medications. No side effects- Not attending psychotherapy/counseling- Experiencing less physical and emotional stress- Not exercising- Sleeping about than 6 hours- Denies panic attacks- No chest pain, palpitations, dyspnea, or gastrointestinal symptoms- Denies depression- Denies suicidal ideation- Denies manic symptoms- Denies hallucinations Asthma- On no inhalers at this time- No activity limits- No hospitalizations for exacerbations during the last year Prediabeteslast hemoglobin A1c < 1 year ago, 6.1Following a lower carbohydrate dietNot Exercising -Call Or Contact Centre Coach/Nursing note reviewed.- Jas Perez MD Attn: Accounting, [address] , [place], [address], [place] [facility] 01/01/2024 16:04:03 07/01/20 24 text/htm l HyperlipidemiaReported bypatient.Duration:chronic Control:usually well controlled; improving; at goal;not at goal Current Therapy:currently taking: (atorvastatin 10 mg tablet) Compliance:compliant; compliant with diet; exercises Complications:no coronary artery disease; no peripheral artery disease; no cardiovascular diseaseHypertension F/UReported bypatient.Associated Symptoms:no dizziness; no lightheadedness; no chest pain; no shortness of breath; no palpitations; no edema; no calf pain with exertion Lifestyle:not exercising regularly;high salt intake Medications:taking medications as directed; no side effects from medication; checks blood pressure at home, range: (does not check) 6-MONTH FOLLOW-UP VISIT/SUBJECTIVE: Elliott presents for routine 6-month follow-up of hypertension, hyperlipidemia, depression with anxiety, and prediabetes, among other chronic conditions Last routine follow-up office visit: 6Ivf24Csex labwork: Patient reports consistent use of medications, without side effects or intolerances. Current concerns:right arm/shoulder pain after vzv - 09/17- no weakness or paresthesias- can't sleep on, limited range of motion due to pain- no known injury levothyroxine dosing Health maintenance:Immunizations due: vzv#2, RSVColorectal cancer screenin48Wyn59 - Fedder - 10yrfuWell-woman exam: not indicatedMammography: 47Jze03YHPW: 17Ggc37 - normalLDCT: 20+ pack-years - yearly screening per pulmonology HypertensionOn hydrochlorothiazideConsistent use of medicationsDoes not report any headaches, blurry vision, dizziness, chest pain, shortness of breath, or palpitationsFollowing a low salt diet.Not exercising HyperlipidemiaConsistent use of lipid-lowering medication(s)No side effectsFollowing a low-cholesterol dietLast lipid panel < 1 year ago HypothyroidismPatient is on levothyroxine (synthetic T4)Consistent use of medicationDenies palpitations, fatigue, weight gain, cold intolerance, constipation, or dry skinLast TSH was < 1 year ago Anxiety/DepressionConsistent use of medications. No side effectsNot attending psychotherapy/counselingExperien cing the same amount of physical and emotional stressNot exercisingSleeping more than 6 hoursDenies panic attacksNo chest pain, palpitations, dyspnea, or gastrointestinal symptomsEndorses depression - mildlyDenies suicidal ideationDenies manic symptomsDenies hallucinations AsthmaOn no inhalers at this timeNo activity limits, but some exertional dyspneaNo hospitalizations for exacerbations during the last year PrediabetesLast hemoglobin A1c < 1 year agoFollowing a lower carbohydrate dietExercising -Call Or Contact Centre Coach/Nursing note reviewed.- Jas Perez MD Attn: Accounting, [address] [facility], [place], [address], [facility] 07/01/2024 16:29:03 01/28/20 25 text/htm l Anxiety/DepressionReported bypatient.Quality:symptoms improved Severity:denies suicidal ideations; able to maintain relationships; does not interfere with activities of daily living Context:no major life stressors Associated Symptoms:everythings good per patientHypertension F/UReported bypatient.Associated Symptoms:no dizziness; no lightheadedness; no chest pain; no shortness of breath; no palpitations; no edema Lifestyle:limiting/avoiding salt Medications:taking medications as directed; no side effects from medication; checks blood pressure at home, range: (116/79) TANESHA Whaley Attn: Accounting, [address] [facility], [place], [address], [facility] 01/27/2025 16:51:34 OBGyn Episode No OBEpisode recorded.
--- OUTSIDE RECORDS SUMMARY | 2025-04-27 14:17 | XMS_ITS | Referral Summary ---
Author Organization [facility] Address [address] [place] [address] Care Team Providers Care Compliance Review Specialist Name Role Phone Lety Trotter KE Primary Care Provid er Encounters Date Type Department Care Team Description 04/13/2025 Orders Only [facility] [place] [address] [place] [address] Issac Willis MD Positive colorectal cancer screening using Cologuard test (Primary Dx) from Last 3 Months Allergies Active Allergy Reactions Criticality Noted Date Comments Cholestyramine-Aspartame Other (See comments) Low 1 12/15/2023 Medications atorvastatin (LIPITOR) 10 mg tablet atorvastatin 10 mg tablet Active traZODone (DESYREL) 100 mg tablet 021 Active hydroCHLOROth iazide (HYDRODIURIL) 50 mg tablet hydrochlorothiazide 50 mg tablet Active loratadine 10 mg capsule Rx: Loratadine Acti ve buPROPion XL (WELLBUTRIN XL) 300 mg 24 hr tablet Take 1 tablet (300 mg total) by mouth every morning 024 Active levothyroxine (SYNTHROID) 112 mcg tablet PLEASE SEE ATTACHED FOR DETAILED DIRECTIONS 024 Active meloxicam (MOBIC) 15 mg tabletIndicat ions:Chronic right shoulder pain Take 1 tablet (15 mg total) by mouth daily 30 tablet 3 025 Active meloxicam (MOBIC) 15 mg tabletIndicat ions:Chronic right shoulder pain TAKE 1 TABLET (15 MG TOTAL) BY MOUTH DAILY. 30 tablet 3 025 06/09 Active bisacodyl EC (DULCOLAX EC) 5 mg EC tabletIndicat ions:constipa tion Take 1 tablet (5 mg total) by mouth daily as needed for constipation 4 tablet 025 Active modafiniL (PROVIGIL) 200 mg tabletIndicat ions:Idiopath ic hypersomnia TAKE 1 TABLET BY MOUTH EVERY DAY 90 tablet 3 025 Active modafiniL (PROVIGIL) 200 mg tabletIndicat ions:Sleepine ss Due To Obstructive Sleep Apnea Take 1 tablet (200 mg total) by mouth daily 90 tablet 2 024 04/21 Discontinued polyethylene glycol (GoLYTELY) 236-22.74-6.7 4 -5.86 gram solutionIndic ations:Positi ve colorectal cancer screening using Cologuard test Take 4,000 mL by mouth once for 1 dose 4000 mL 025 04/13 Active Problems Problem Noted Date Diagnosed Date Positive colorectal cancer screening using Colog uard test 04/13/2025 Hypersomnia due to medical condition 01/15/2024 Assessment & Plan (01/20/2025 2:40 PM BILINGUAL ACCOUNT MANAGER): The patient will continue with Provigil 200 mg p.o. Q a.m.. Assessment & Plan (01/15/2024 2:47 PM BILINGUAL ACCOUNT MANAGER): The patient has hypersomnia not completely treated with CPAP for CHRISTO. She is trying to get a refill on her Provigil 200 mg p.o. q.a.m.. Hyponatremia 06/11/2023 Pain in both feet 05/18/2023 Morbid (severe) obesity due to excess calories 0 01/02/2023 Body mass index 40.0-44.9, adult (CMS/HCC) 01/02 Personal history of tobacco use 01/02/2023 Assessment & Plan (01/20/2025 2:40 PM BILINGUAL ACCOUNT MANAGER): I have ordered a low-dose screening CT scan for November 2025. The patient did stop smoking 2017 and August. Assessment & Plan (01/15/2024 2:47 PM BILINGUAL ACCOUNT MANAGER): She quit smoking in 2017. She did smoke 1.5 packs of cigarettes per day for 40 years. I will order another screening chest CT for next November 2024 Assessment & Plan (01/02/2023 3:15 PM BILINGUAL ACCOUNT MANAGER): I have ordered a lung cancer screening CT for December of 2023 Patient's smoking history is 1 and half packs of cigarettes per day for 40 years and quit in August 2018 BMI 40.0-44.9, adult 12/04/2022 Hyperlipidemia 05/06/2019 Prediabetes 06/27/2017 Obstructive sleep apnea syndrome 11/02/2016 Assessment & Plan (01/20/2025 2:39 PM BILINGUAL ACCOUNT MANAGER): Patient continue to wear her CPAP at 17 cm water pressure while sleeping. Her DME is [facility]. Assessment & Plan (01/15/2024 2:47 PM BILINGUAL ACCOUNT MANAGER): The patient continues to benefit from the auto titrating CPAP unit with a range of 7-10 cm water pressure for ongoing symptoms CHRISTO. Her DME supplier is [facility] in [place]. She will follow up here in 1 year. Assessment & Plan (01/02/2023 3:15 PM BILINGUAL ACCOUNT MANAGER): Will continue CPAP at 17 cm water pressure. DME [facility] Assessment & Plan (01/03/2022 2:47 PM BILINGUAL ACCOUNT MANAGER): The patient will continue with CPAP therapy at 17 cm water pressure. The patient denied need for supplies. DME company [facility]. The patient and I discussed the recall in depth. The patient was instructed to examine CPAP machine prior to use for debris. The patient was also provided information in regards to the recall. The patient is benefitting from CPAP Essential hypertension 11/01/2016 Hypothyroidism 11/01/2016 Impacted cerumen 03/15/2016 Overview (10/15/2024): Location: None;Severity: Moderate;Progress: Stable;Added By: Sylvia Burgess;Add to Current Problems: YES Verruca vulgaris 02/16/2016 Senile hyperkeratosis 02/14/2016 Neoplasm of uncertain behavior of skin 6 Overview (10/15/2024): Location: None;Severity: Moderate;Progress: Stable;Added By: Claritza Smith;Add to Current Problems: YES Edema 08/03/2015 Overview (10/15/2024): Location: None;Severity: Moderate;Progress: Stable;Added By: Janna Vergara;Add to Current Problems: NO Elevated blood-pressure read ing without diagnosis of hypertension 08/03/2015 Overview (10/15/2024): Location: None;Severity: Moderate;Progress: Stable;Added By: Janna Vergara;Add to Current Problems: NO Tobacco dependence syndrome 05/27/2015 Overview (10/15/2024): Location: None;Severity: Moderate;Progress: Stable;Added By: Sylvia Burgess;Add to Current Problems: YES Nausea and vomiting 05/19/2015 Overview (10/15/2024): Location: None;Severity: Moderate;Progress: Stable;Added By: Sylvia Burgess;Add to Current Problems: YES Otitis media 05/19/2015 Extrinsic asthma 03/30/2015 Hepatomegaly 08/12/2014 Overview (10/15/2024): Location: None;Severity: Moderate;Progress: Stable;Added By: Kyra Adler;Add to Current Problems: YES Acute bronchitis 06/22/2014 Overview (10/15/2024): Location: None;Severity: Moderate;Progress: Stable;Added By: Yaquelin [place];Add to Current Problems: YES Location: None;Severity: Moderate;Progress: Stable;Added By: Patricia Meléndez;Add to Current Problems: YES Location: None;Severity: Moderate;Progress: Stable;Added By: Sylvia Burgess;Add to Current Problems: YES Contact dermatitis 05/27/2014 Overview (10/15/2024): Location: None;Severity: Moderate;Progress: Stable;Added By: Caio Juárez;Add to Current Problems: NO Rash 05/27/2014 Overview (10/15/2024): Location: None;Severity: Moderate;Progress: Stable;Added By: Karolina Neely;Add to Current Problems: NO Open wound of finger 01/27/2014 Overview (10/15/2024): Location: None;Severity: Moderate;Progress: Stable;Added By: Alesha Alcaraz;Add to Current Problems: NO Mixed anxiety and depressive disorder 10/29/2013 Overview (10/15/2024): Location: None;Severity: Moderate;Progress: Stable;Added By: Yaquelin Campbell;Add to Current Problems: YES Transient insomnia 10/29/2013 Overview (10/15/2024): Location: None;Severity: Moderate;Progress: Stable;Added By: Patricia Meléndez;Add to Current Problems: NO Contusion of chest 06/19/2013 Overview (10/15/2024): Location: None;Severity: Moderate;Progress: Stable;Added By: Patricia Meléndez;Add to Current Problems: NO Dyspnea 06/19/2013 Overview (10/15/2024): Location: None;Severity: Moderate;Progress: Stable;Added By: Claritza Smith;Add to Current Problems: NO Infective otitis externa 05/16/2013 Overview (10/15/2024): Location: None;Severity: Moderate;Progress: Stable;Added By: Patricia Meléndez;Add to Current Problems: NO Menopausal symptom 06/20/2012 Overview (10/15/2024): Location: None;Severity: Moderate;Progress: Stable;Added By: Patricia Meléndez;Add to Current Problems: NO Mineral deficiency 06/20/2012 Single major depressive episode, moderate 2011 Resolved Problems Problem Noted Date Diagnosed Date Resolved Date Idiopathic hypersomnia 01/03/202201/15 Assessment & Plan (01/02/2023 3:15 PM BILINGUAL ACCOUNT MANAGER): Will continue Provigil 200 mg daily. I will refill for 1 year Assessment & Plan (01/03/2022 2:47 PM BILINGUAL ACCOUNT MANAGER): The patient will continue with Provigil 200 mg daily. I have reordered the medication for 1 years worth of refills. Social History Tobacco Use Types Packs/Day Years Used Date Smoking Tobacco: Former Cigarettes 2 20 0 12/01/1998 - 12/01/2018 Smokeless Tobacco: Never Tobacco Cessation:Counseling Given: Not Answered AUDIT-C Answer Date Recorded Q1: How often do you have a drink containing alcohol? Never 04/23/2025 Q2: How many drinks containi ng alcohol do you have on a typical day when you are drinking? Patient does not drink Q3: How often do you have si x or more drinks on one occasion? Never 04/23/2025 Comments No Sex and Gender Information Value Date Recorded Sex Assigned at Not on file Legal Sex Female 8:14 PM BILINGUAL ACCOUNT MANAGER Gender Identity Female 11/21/2022 4:52 PM BILINGUAL ACCOUNT MANAGER Sexual Orientation Straight 11/21/2022 4: 52 PM BILINGUAL ACCOUNT MANAGER Last Filed Vital Signs Vital Sign Reading Time Taken Comments Blood Pressure 126/88 01/20/2025 2:17 PM BILINGUAL ACCOUNT MANAGER Pulse 78 01/20/2025 2:17 PM BILINGUAL ACCOUNT MANAGER Temperature 36.6 C (97.8 F) 01/20/2025 2:17 PM BILINGUAL ACCOUNT MANAGER Respiratory Rate 18 01/20/2025 2:17 PM BILINGUAL ACCOUNT MANAGER Oxygen Saturation 96% 01/20/2025 2:17 PM BILINGUAL ACCOUNT MANAGER Inhaled Oxygen Concentration - - Weight 120.2 kg (265 lb) 01/20/2025 2:17 PM BILINGUAL ACCOUNT MANAGER Height 170.2 cm (5' 7) 01/20/2025 2:17 PM BILINGUAL ACCOUNT MANAGER Body Mass Index 41.5 01/20/2025 2:17 PM BILINGUAL ACCOUNT MANAGER Plan of Treatment Upcoming Encounters Date Type Department Care Team (Late st Contact Info) Description 05/04/2025 10:30 AM CDT Hospital Encounter [facility] [address] [place] [address] Issac Willis MD [address] [place] [address] 05/04/2025 10:30 AM CDT - 05/04/2025 11:[address] [facility] [address] [place] [address] Issac Willis MD [address] [place] [address] COLONOSCOPY Scheduled Procedures Name Priority Associated Diagnoses Date/Ti me COLONOSCOPY Positive colorectal cancer screening using Cologuard test 05/04/2025 10:30 AM CDT Procedures Procedure Name Priority Date/Time Associated Diagnosis Comments CT LUNG CANCER SCREENING Schedule Routine, Read Routine (OP Routine) 12/17/2024 3:57 PM BILINGUAL ACCOUNT MANAGER Personal history of tobacco use SCREENING MAMMOGRAM BILATERAL W JHONNY Schedule Routine, Read Routine (OP Routine) 02/14/2024 3:25 PM CDT Screening mammogram, encounter for from Last 3 Months or Most Recently Relevant to Health Maintenance Results * CT Lung Cancer Screening (12/17/2024 3:57 PM BILINGUAL ACCOUNT MANAGER) Anatomical Region Laterality Modality Chest N/A Computed Tomogra phy 12/17/2024 9:32 PM BILINGUAL ACCOUNT MANAGER Narrative 12/17/2024 9:36 PM BILINGUAL ACCOUNT MANAGER EXAM DESCRIPTION: CT LUNG CANCER SCREENING REASON FOR STUDY: Screening CT of the chest in a former smoker with a 100 pack year smoking history. Additional history: None. TECHNIQUE: Low dose CT scan of the chest was performed without intravenous contrast using helical scanning technique. The exam extends from the lung apices through the lung bases. Automatic exposure control was used as a dose optimization technique. NOTE: This study was performed for the specific purposes of lung cancer screening and is not an alternative to diagnostic chest CT. RADIATION DOSE: CT dose index volume (CTDIvol) = 2.89 mGy COMPARISON: CT chest 12/12/2023 FINDINGS: SMOKING RELATED LUNG DISEASE: Mild emphysema. Bilateral ground-glass opacities with mosaic attenuation consistent with small airway disease. LUNG NODULES: No suspicious pulmonary nodule. CORONARY ARTERY CALCIFICATION: Present OTHER: No focal consolidation, pleural effusion or pneumothorax. Normal-sized heart without pericardial effusion. Normal caliber of the great vessels. Atherosclerotic calcification of the aorta and coronary arteries. No pleural effusion. No thoracic lymphadenopathy. Visualized upper abdomen demonstrates no acute findings. No suspicious osseous findings. IMPRESSION: No suspicious pulmonary nodule Lung-RADS category 1: Negative. Recommendation: Low dose Screening CT of chest in 12 months. THIS IS AN ELECTRONICALLY VERIFIED FINAL REPORT 12/17/2024 9:36 PM - Electronically signed by Bibi Weiss M.D. FT: FT Report ID: [id number] Reading Location: [place] [address] Procedure Note Bibi Gayle MD - 12/17/2024 EXAM DESCRIPTION: CT LUNG CANCER SCREENING REASON FOR STUDY: Screening CT of the chest in a former smoker with a100 pack year smoking history. Additional history: None. TECHNIQUE: Low dose CT scan of the chest was performed without intravenous contrast using helical scanning technique. The exam extends from the lung apices through the lung bases. Automatic exposure control was used as adose optimization technique. NOTE: This study was performed for the specific purposes of lung cancer screening and is not an alternative to diagnostic chest CT. RADIATION DOSE: CT dose index volume (CTDIvol) = 2.89 mGy COMPARISON: CT chest 12/12/2023 FINDINGS: SMOKING RELATED LUNG DISEASE: Mild emphysema. Bilateral ground-glass opacities with mosaic attenuation consistent with smallairway disease. LUNG NODULES: No suspicious pulmonary nodule. CORONARY ARTERY CALCIFICATION: Present OTHER: No focal consolidation, pleural effusion or pneumothorax. Normal-sized heart without pericardial effusion. Normal caliber of thegreat vessels. Atherosclerotic calcification of the aorta and coronary arteries.No pleural effusion. No thoracic lymphadenopathy. Visualized upper abdomen demonstrates no acute findings. No suspicious osseous findings. IMPRESSION: No suspicious pulmonary nodule Lung-RADS category 1: Negative. Recommendation: Low dose Screening CT of chest in 12 months. THIS IS AN ELECTRONICALLY VERIFIED FINAL REPORT 12/17/2024 9:36 PM - Electronically signed by Bibi Weiss M.D. FT: FT Report ID: [id number] Reading Location: [place] [address] us Juvenal Shelby MD IMG CT PROCEDURES Final R esult * Screening Mammogram Bilateral W Jhonny (02/14/2024 3:25 PM CDT) Anatomical Region Laterality Modality Breast Bilateral Mammography Impressions 02/18/2024 10:19 AM CDT BI-RADS ATLAS category (overall): 1 - Negative There is no mammographic evidence of malignancy. A 1 year screening mammogram is recommended. The patient has been or will be contacted. We recommend annual screening mammography for women at average risk of breast cancer beginning at age 40, based on guidelines of the [employer] (ACR Practice Parameter for the Performance of Screening and Diagnostic Mammography) and [employer]. For women with and elevated risk of breast cancer, please refer to the ACR Practice Parameter for specific screening recommendations. The patient will be entered into a reminder system with a target due date of 1 year for her next screening exam. Narrative 02/18/2024 10:19 AM CDT Screening Mammogram Bilateral W Jhonny: 02/14/24 The study was acquired using full field digital technology and interpreted from soft copy. 2D digital mammographic views, as well as 3D digital tomosynthesis were performed in the CC and MLO projections. CLINICAL: Screening mammogram, encounter for. No relevant medical history has been documented for this patient. No known family history of breast cancer. COMPARISONS: 02/07/2023 Breast Imaging Screening Outside Reference 12/15/2021 Breast Imaging Screening Outside Reference 2020 Breast Imaging Screening Outside Reference BREAST TISSUE: The breasts have scattered areas of fibroglandular density. FINDINGS: There is no new suspicious finding in either breast on mammogram. us Self Screening Mammogram IMG MAMMO PROCEDURES Fi nal Result from Last 3 Months or Most Recently Relevant to Health Maintenance [place] [id number] [facility] [place] [id number] Care Teams Compliance Review Specialist Relationship Specialty Start Date End Date Lety Trotter NP [address] [place] [address] PCP - General Family Medicine 11/17/24
--- OUTSIDE RECORDS SUMMARY | 2025-04-27 14:17 | XMS_ITS | Continuity of Care Document ---
Author Organization [facility] [place] [address] [place] [address] [place] [address] Phone Care Team Providers Care Vocational Rehabilitation Teacher Name Role Phone [facility] Unavailable Unavail able Patrica Lo Unavailable Unavailable Advance Directives Directive Yes / No Effective Date File Name No Information Encounters Encounter Description Practice Location Reason(s) For Visit Diagnoses Date Provider Providers Copied on Encounter [facility], [address], [place], [place], [id number], [place] tel:[phone] [facility] No Information [address] [facility] [address] [facility], [address], [place], [place], [id number] , [place]. [phone] Consulting Provider: Patrica Lo, [address] [place] [address], [address]. tel:[phone] Family History Family Member Type Diagnosis Age At Onset No Information Payers Payer name Insurance type Covered republican ID Authoriza tion(s) No Information Social History Type Description Quantity Date Captured Comments Sex Female Smoking Status No Information Chief Complaint And Reason For Visit No Information Reason For Referral Reason For Referral No Information History Of Present Illness Encounter Date Complaint History Of Prese nt Illness No Information Functional Status Date Functional Assessmen t No Information Instructions Date Instruction Additional Infor mation No Information Assessments Type Assessment Date No Information Patient Care Teams Name Effective Dates (start - stop) Status Members No Information
--- OUTSIDE RECORDS SUMMARY | 2025-04-27 14:17 | XMS_ITS | Clinical Summary ---
Author Organization [facility] [facility] [employer] Address [address] [place] [address] Care Team Providers Care Broadcast Traffic Coordinator Name Role Phone Lety Trotteroinette KE Primary Care Provid er Allergies Active Allergy Reactions Criticality Noted Date [...] 01/15/2024 Assessment & Plan (01/20/2025 2:40 PM DIRECTOR OF RESPIRATORY THERAPY): The patient will continue with Provigil 200 mg p.o. Q a.m.. Assessment & Plan (01/15/2024 2:47 PM DIRECTOR OF RESPIRATORY THERAPY): The patient has hypersomnia not completely treated with CPAP for CHRISTO. She is trying to get a refill on her Provigil 200 mg p.o. q.a.m.. Hyponatremia 06/11/2023 Pain in both feet 05/18/2023 Morbid (severe) obesity due to excess calories 0 01/02/2023 Body mass index 40.0-44.9, adult ([facility]) 01/02 Personal history of tobacco use 01/02/2023 Assessment & Plan (01/20/2025 2:40 PM DIRECTOR OF RESPIRATORY THERAPY): I have ordered a low-dose screening CT scan for November 2025. The patient did stop smoking 2017 and August. Assessment & Plan (01/15/2024 2:47 PM DIRECTOR OF RESPIRATORY THERAPY): She quit smoking in 2017. She did smoke 1.5 packs of cigarettes per day for 40 years. I will order another screening chest CT for next November 2024 Assessment & Plan (01/02/2023 3:15 PM DIRECTOR OF RESPIRATORY THERAPY): I have ordered a lung cancer screening CT for December of 2023 Patient's smoking history is 1 and half packs of cigarettes per day for 40 years and quit in August 2018 BMI 40.0-44.9, adult 12/04/2022 Hyperlipidemia 05/06/2019 Prediabetes 06/27/2017 Obstructive sleep apnea syndrome 11/02/2016 Assessment & Plan (01/20/2025 2:39 PM DIRECTOR OF RESPIRATORY THERAPY): Patient continue to wear her CPAP at 17 cm water pressure while sleeping. Her DME is [facility]. Assessment & Plan (01/15/2024 2:47 PM DIRECTOR OF RESPIRATORY THERAPY): The patient continues to benefit from the auto titrating CPAP unit with a range of 7-10 cm water pressure for ongoing symptoms CHRISTO. Her DME supplier is [facility] in [place]. She will follow up here in 1 year. Assessment & Plan (01/02/2023 3:15 PM DIRECTOR OF RESPIRATORY THERAPY): Will continue CPAP at 17 cm water pressure. DME [facility] Assessment & Plan (01/03/2022 2:47 PM DIRECTOR OF RESPIRATORY THERAPY): The patient will continue with CPAP therapy at 17 cm water pressure. The patient denied need for supplies. DME company [facility]. The patient and I discussed the recall in depth. The patient was instructed to examine CPAP machine prior to use for debris. The patient was also provided information in regards to the recall. The patient is benefitting from CPAP Essential hypertension 11/01/2016 Hypothyroidism 11/01/2016 Impacted cerumen 03/15/2016 Overview (10/15/2024): Location: None;Severity: Moderate;Progress: Stable;Added By: Parent, Sylvia Cutler;Add to Current Problems: YES Verruca vulgaris 02/16/2016 [...] 01/03/202201/15 Assessment & Plan (01/02/2023 3:15 PM DIRECTOR OF RESPIRATORY THERAPY): Will continue Provigil 200 mg daily. I will refill for 1 year Assessment & Plan (01/03/2022 2:47 PM DIRECTOR OF RESPIRATORY THERAPY): The patient will continue with Provigil 200 mg daily. I have reordered the medication for 1 years worth of refills. Encounters Date Type Department Care Team Description 04/13/2025 Orders Only [facility] G[facility] at [address] [place] [address] Issac Willis MD Positive colorectal cancer screening using Cologuard test (Primary Dx) from Last 3 Months Medical History Medical History Date Comments Thyroid disease Hypertension Hypothyroidism Family History Medical History Relation Name Comments Cancer Father Heart failure Father Lung disease Father Diabetes Sister Heart disease Sister Heart failure Sister Rectal cancer Sister Relation Name Status Comments Father Sister Social History Tobacco Use Types Packs/Day Years [...] on file Legal Sex Female 8:14 PM DIRECTOR OF RESPIRATORY THERAPY Gender Identity Female 11/21/2022 4:52 PM DIRECTOR OF RESPIRATORY THERAPY Sexual Orientation Straight 11/21/2022 4: 52 PM DIRECTOR OF RESPIRATORY THERAPY Obstetrics History Last Filed Vital Signs Vital Sign Reading Time Taken Comments Blood Pressure 126/88 01/20/2025 2:17 PM DIRECTOR OF RESPIRATORY THERAPY Pulse 78 01/20/2025 2:17 PM DIRECTOR OF RESPIRATORY THERAPY Temperature 36.6 C (97.8 F) 01/20/2025 2:17 PM DIRECTOR OF RESPIRATORY THERAPY Respiratory Rate 18 01/20/2025 2:17 PM DIRECTOR OF RESPIRATORY THERAPY Oxygen Saturation 96% 01/20/2025 2:17 PM DIRECTOR OF RESPIRATORY THERAPY Inhaled Oxygen Concentration - - Weight 120.2 kg (265 lb) 01/20/2025 2:17 PM DIRECTOR OF RESPIRATORY THERAPY Height 170.2 cm (5' 7) 01/20/2025 2:17 PM DIRECTOR OF RESPIRATORY THERAPY Body Mass Index 41.5 01/20/2025 2:17 PM DIRECTOR OF RESPIRATORY THERAPY Plan of Treatment Upcoming Encounters Date Type Department Care Team (Late st Contact Info) Description 05/04/2025 10:30 AM CDT Hospital Encounter [facility] [address] [place] [address] Issac Willis MD [address] [place] [address] 05/04/2025 10:30 AM CDT - 05/04/2025 11:00 AM CDT Surgery [facility] [address] [place] [address] Issac Willis MD [facility] [place] [address] COLONOSCOPY Scheduled Procedures Name Priority Associated Diagnoses Date/Ti me COLONOSCOPY Positive colorectal cancer screening using Cologuard test 05/04/2025 10:30 AM CDT Health Maintenance Due Date Last Done Comments Colon Cancer Screening-Colonoscopy 1954 Depression Screening 1954 Fall Risk Assessment 1954 Hepatitis C Screening 1954 Hepatitis B Screening 1972 Well Visit 65+ 2019 Zoster Vaccine (2 of 2) 11/13/2023 09/18/2023 Covid-19 Vaccine (3 - 2023-2 5 season) 2024 03/01/2021, 02/06/2021 Osteoporosis Screening-Bone Density Scan 12/05/2024 12/05/2022 Breast Cancer Screening-Mammogram 02/13/2025 02/14/2024, 12/15/2021, 11/17/2020, Additional history exists Pneumococcal vaccine 65+ (3 of 3 - PCV20 or PCV21) 2025 2020, 10/06/2011 Lung Cancer Screening 12/18/2025 12/17/2024 , 12/12/2023, 12/01/2022, Additional history exists DTaP/Tdap/Td Vaccine (4 - Td or Tdap) 01/01/2034 01/01/2024, 01/20/2014, 10/31/1999 Influenza Vaccine Completed 08/08/2024, , 2020, Additional history exists Procedures Procedure Name Priority Date/Time Associated Diagnosis Comments CT LUNG CANCER SCREENING Schedule Routine, Read Routine (OP Routine) 12/17/2024 3:57 PM DIRECTOR OF RESPIRATORY THERAPY Personal history of tobacco use SCREENING MAMMOGRAM BILATERAL W JHONNY Schedule Routine, Read Routine (OP Routine) 02/14/2024 3:25 PM CDT Screening mammogram, encounter for from Last 3 Months or Most Recently Relevant to Health Maintenance Results * CT Lung Cancer Screening (12/17/2024 3:57 PM DIRECTOR OF RESPIRATORY THERAPY) Anatomical Region Laterality Modality Chest N/A Computed Tomogra phy 12/17/2024 9:32 PM DIRECTOR OF RESPIRATORY THERAPY Narrative 12/17/2024 9:36 PM DIRECTOR OF RESPIRATORY THERAPY EXAM DESCRIPTION: CT LUNG CANCER SCREENING REASON [...] Bibi Weiss M.D. FT: FT Report ID: [id number] Reading Location: [id number] Procedure Note Bibi Gayle MD - 12/17/2024 [...] Bibi Weiss M.D. FT: FT Report ID: [id number] Reading Location: [id number] Juvenal Shelby MD IMG CT PROCEDURES [...] age 40, based on guidelines of the [employer] (ACR Practice Parameter for the Performance of Screening and Diagnostic Mammography) and [employer]. For women [...] Recently Relevant to Health Maintenance Insurance January [place] [id number] [facility] [place]ICARE [place] [id number] Care Teams Broadcast Traffic Coordinator Relationship Specialty Start Date End Date Lety Trotter NP [address] [address] PCP - General Family Medicine 11/17/24
[2025-04-27 15:40] LABS: Cholesterol 133 mg/dL (0-200); HDL Direct 46 mg/dL; Triglycerides 167 mg/dL (<150)
[2025-04-27 15:53] LABS: LDL Cholesterol Direct 59 mg/dL
== END 2025-04-27 13:44 | disposition home or self-care (01) ==
DX: E03.9 Hypothyroidism, unspecified (principal); E78.5 Hyperlipidemia, unspecified; R73.03 Prediabetes
CPT/HCPCS: 36415; 80061; 83036; 84443

== ENCOUNTER 2025-07-16 12:40 | Outpatient (CLI) | payer MEDICARE, SELFPAY ==
--- OUTSIDE RECORDS SUMMARY | 2025-07-16 12:47 | XMS_ITS | Clinical Summary ---
Author Organization [facility] Address [address] [place] [address] Care Team Providers Care Customs Brokerage Manager Name Role Phone Lety Trotter KE Primary Care Provid er Allergies Active Allergy Reactions Criticality Noted Date Comments Cholestyramine-Aspartame Other (See comments) Low 1 12/15/2023 Medications atorvastatin (LIPITOR) 10 mg tablet atorvastatin 10 mg tablet Active traZODone (DESYREL) 100 mg tablet 10/02/20 21 Active hydroCHLOROthi azide (HYDRODIURIL) 50 mg tablet hydrochlorothiazide 50 mg tablet Active loratadine 10 mg capsule Rx: Loratadine Acti ve buPROPion XL (WELLBUTRIN XL) 300 mg 24 hr tablet Take 1 tablet (300 mg total) by mouth every morning 12/29/19 24 Active levothyroxine (SYNTHROID) 112 mcg tablet PLEASE SEE ATTACHED FOR DETAILED DIRECTIONS 08/15/20 24 Active meloxicam (MOBIC) 15 mg tabletIndicati ons:Chronic right shoulder pain Take 1 tablet (15 mg total) by mouth daily 30 tablet 3 12/25/19 25 Active Additional Information Patient not taking.Reported on 05/04/2025 modafiniL (PROVIGIL) 200 mg tabletIndicati ons:Idiopathic hypersomnia TAKE 1 TABLET BY MOUTH EVERY DAY 90 tablet 3 04/21/20 25 Active meloxicam (MOBIC) 15 mg tabletIndicati ons:Chronic right shoulder pain TAKE 1 TABLET (15 MG TOTAL) BY MOUTH DAILY. 30 tablet 3 06/08/202024 Active Active Problems Problem Noted Date Diagnosed Date Positive colorectal cancer screening using Colog uard test 04/13/2025 Hypersomnia due to medical condition 01/15/2024 Assessment & Plan (01/20/2025 2:40 PM VEST FRONT PRESSER): The patient will continue with Provigil 200 mg p.o. Q a.m.. Assessment & Plan (01/15/2024 2:47 PM VEST FRONT PRESSER): The patient has hypersomnia not completely treated with CPAP for CHRISTO. She is trying to get a refill on her Provigil 200 mg p.o. q.a.m.. Hyponatremia 06/11/2023 Pain in both feet 05/18/2023 Morbid (severe) obesity due to excess calories 0 01/02/2023 Body mass index 40.0-44.9, adult ([facility]) 01/02 Personal history of tobacco use 01/02/2023 Assessment & Plan (01/20/2025 2:40 PM VEST FRONT PRESSER): I have ordered a low-dose screening CT scan for November 2025. The patient did stop smoking 2017 and August. Assessment & Plan (01/15/2024 2:47 PM VEST FRONT PRESSER): She quit smoking in 2017. She did smoke 1.5 packs of cigarettes per day for 40 years. I will order another screening chest CT for next November 2024 Assessment & Plan (01/02/2023 3:15 PM VEST FRONT PRESSER): I have ordered a lung cancer screening CT for December of 2023 Patient's smoking history is 1 and half packs of cigarettes per day for 40 years and quit in August 2018 BMI 40.0-44.9, adult 12/04/2022 Hyperlipidemia 05/06/2019 Prediabetes 06/27/2017 Obstructive sleep apnea syndrome 11/02/2016 Assessment & Plan (01/20/2025 2:39 PM VEST FRONT PRESSER): Patient continue to wear her CPAP at 17 cm water pressure while sleeping. Her DME is [facility]. Assessment & Plan (01/15/2024 2:47 PM VEST FRONT PRESSER): The patient continues to benefit from the auto titrating CPAP unit with a range of 7-10 cm water pressure for ongoing symptoms CHRISTO. Her DME supplier is [facility] in [place]. She will follow up here in 1 year. Assessment & Plan (01/02/2023 3:15 PM VEST FRONT PRESSER): Will continue CPAP at 17 cm water pressure. DME [facility] Assessment & Plan (01/03/2022 2:47 PM VEST FRONT PRESSER): The patient will continue with CPAP therapy at 17 cm water pressure. The patient denied need for supplies. DME company [facility]. The patient and I discussed [...] 01/03/202201/15 Assessment & Plan (01/02/2023 3:15 PM VEST FRONT PRESSER): Will continue Provigil 200 mg daily. I will refill for 1 year Assessment & Plan (01/03/2022 2:47 PM VEST FRONT PRESSER): The patient will continue with Provigil 200 mg daily. I have reordered the medication for 1 years worth of refills. Encounters Date Type Department Care Team Description 05/11/2025 2:16 PM CDT - 05/11/2025 11:59 PM CDT Hospital Encounter [facility] Medical Office Bldg 1 [facility] [address] [facility] [address] [place] [address] Screening mammogram, encounter for Discharge Disposition: Discharge to home or self care 05/06/2025 Results Follow-Up [facility] Gastroenterology at [address] [place] [address] Issac Willis MD Surgical pathology 05/04/2025 11:00 AM CDT Anesthesia Event [facility] [address] [place] [address] Connie Worley MD 05/04/2025 10:30 AM CDT - 05/04/2025 11:00 AM CDT Surgery [facility] [address] [place] [address] Issac Willis MD COLON REMOVAL SNARE 05/04/2025 9:18 AM CDT - 05/04/2025 12:29 PM CDT Hospital Encounter [facility] [address] [place] [address] Issac Willis MD Positive colorectal cancer screening using Cologuard test Discharge Disposition: Discharge to home or self care from Last 3 Months Surgical History Surgery Date Site/Laterality Comments COLONOSCOPY Medical History Medical History Date Comments Thyroid disease Hypertension Hypothyroidism Rectal bleeding Sleep apnea Depression Family History Medical History Relation Name Comments [...] you have a drink containing alcohol? Never 05/04/2025 Q2: How many drinks containi ng alcohol do you have on a typical day when you are drinking? Patient does not drink Q3: How often do you have si x or more drinks on one occasion? Never 05/04/2025 Personal Safety Answer Date Recorded Have you ever been in or are you currently in a harmful physical or emotional relationship or is someone making you feel afraid or unsafe? Denies 05/04/2025 Comments No Sex and Gender Information Value Date Recorded Sex Assigned at Not on file Legal Sex Female 8:14 PM VEST FRONT PRESSER Gender Identity Female 11/21/2022 4:52 PM VEST FRONT PRESSER Sexual Orientation Straight 11/21/2022 4: 52 PM VEST FRONT PRESSER Obstetrics History Last Filed Vital Signs Vital Sign Reading Time Taken Comments Blood Pressure 128/68 05/04/2025 12:00 PM CDT Pulse 67 05/04/2025 12:00 PM CDT Temperature 36.5 C (97.7 F) 05/04/2025 11:37 AM CDT Respiratory Rate 18 05/04/2025 12:0 0 PM CDT Oxygen Saturation 94% 05/04/2025 12: 00 PM CDT Inhaled Oxygen Concentration - - Weight 115.7 kg (255 lb 1.2 oz) 05/11/2025 2:31 PM CDT Height 167.6 cm (5' 5.98) 05/11/2025 2:31 PM CD T Body Mass Index 41.19 05/11/2025 2:31 PM CDT Plan of Treatment Health Maintenance Due Date Last Done Comments Depression Screening 1955 Hepatitis C Screening 1955 Hepatitis B Screening 1972 Well Visit 65+ 2019 Zoster Vaccine (2 of 2) 11/13/2023 09/18/2023 Covid-19 Vaccine (3 - 2023-2 5 season) 2024 03/01/2021, 02/06/2021 Osteoporosis Screening-Bone Density Scan 12/05/2024 12/05/2022 Influenza Vaccine (#1) 2025 , 08/17/2021, 2020, Additional history exists Pneumococcal vaccine 65+ (3 of 3 - PCV20 or PCV21) 2025 2020, 10/06/2011 Lung Cancer Screening 12/18/2025 12/17/2024 , 12/12/2023, 12/01/2022, Additional history exists Fall Risk Assessment 05/04/2026 05/04/2025 Breast Cancer Screening-Mammogram 05/11/2026 05/11/2025, 02/14/2024, 12/15/2021, Additional history exists DTaP/Tdap/Td Vaccine (4 - Td or Tdap) 01/01/2034 01/01/2024, 01/20/2014, 10/31/1999 Colon Cancer Screening-Colonoscopy 05/04/2035 05/04/2025 Colon Cancer Screening-CT Colonography Discontinued 05/04/2025 Colon Cancer Screening-DNA Stool Discontinued 05/04/20 Colon Cancer Screening-FIT Discontinued 05/04/2025 Colon Cancer Screening-Sigmoidoscopy Discontinued 05/04/2025 Procedures Procedure Name Priority Date/Time Associated Diagnosis Comments SCREENING MAMMOGRAM BILATERAL W JHONNY Schedule Routine, Read Routine (OP Routine) 05/11/2025 2:31 PM CDT Screening mammogram, encounter for SURGICAL PATHOLOGY Routine 05/04/2025 11 :10 AM CDT Positive colorectal cancer screening using Cologuard test ENDO ADD ON COLON BIOPSY 05/04/2025 11:00 AM CDT Positive colorectal cancer screening using Cologuard test COLON REMOVAL SNARE 05/04/2025 1 1:00 AM CDT Positive colorectal cancer screening using Cologuard test COLONOSCOPY 05/04/2025 10:59 AM CDT POC BLOOD GAS AND CHEMISTRIES, VENOUS Routine 05/04/2025 10:[address] LUNG CANCER SCREENING Schedule Routine, Read Routine (OP Routine) 12/17/2024 3:57 PM VEST FRONT PRESSER Personal history of tobacco use from Last 3 Months or Most Recently Relevant to Health Maintenance Results * Screening Mammogram Bilateral W Jhonny (05/11/2025 2:31 PM CDT) Anatomical Region Laterality Modality Breast Bilateral Mammography Impressions 05/11/2025 3:43 PM CDT BI-RADS ATLAS category (overall): 2 - Benign There is no mammographic evidence of malignancy. A 1 year screening mammogram is recommended. The patient has been or will be contacted. We recommend annual screening mammography for women at average risk of breast cancer beginning at age 40, based on guidelines of the [employer] (ACR Practice Parameter for the Performance of Screening and Diagnostic Mammography) and [employer]. For women with and elevated risk of breast cancer, please refer to the ACR Practice Parameter for specific screening recommendations. The patient will be entered into a reminder system with a target due date of 1 year for her next screening exam. Narrative 05/11/2025 3:43 PM CDT +Screening Mammogram Bilateral W Jhonny: 05/11/25 The study was acquired using full field digital technology and interpreted from soft copy. 2D digital mammographic views, as well as 3D digital tomosynthesis were performed in the CC and MLO projections. CLINICAL: Screening mammogram, encounter for. No relevant medical history has been documented for this patient. No known family history of breast cancer. COMPARISONS: 02/14/2024 Screening Mammogram Bilateral W Jhonny 02/07/2023 Breast Imaging Screening Outside Reference 12/15/2021 Breast Imaging Screening Outside Reference 2020 Breast Imaging Screening Outside Reference 10/22/2019 Breast Imaging Screening Outside Reference 10/09/2018 Breast Imaging Screening Outside Reference BREAST TISSUE: There are scattered areas of fibroglandular density. FINDINGS: There are benign calcifications in both breasts.There is no new suspicious finding in either breast on mammogram. us Self Screening Mammogram IMG MAMMO PROCEDURES Fi nal Result * Surgical pathology (05/04/2025 11:10 AM CDT) Tissue (Colon, Biopsy) 05/04/2025 11:10 AM CDT Tissue specimen (specimen) (Polyp(s), colon/colorectal, esophageal, gastric) 05/04/2025 11:27 AM CDT Tissue specimen (specimen) (Colon, Biopsy) 05/04/2025 11:29 AM CDT Tissue specimen (specimen) (Colon, Biopsy) 05/04/2025 11:29 AM CDT Narrative PATHOLOGY [facility] - 05/05/2025 7:09 PM CDT [facility] Department of Pathology [address] [place] [address] Note to Patients: This report may contain a detailed description of human tissue sent by a health care provider to the laboratory for pathologic evaluation. The content of this report is essential for diagnosis and may provide important critical findings. This information may be unfamiliar to patients to review without a medical professional present. It is advised that the patient review this report in the presence of a health care provider who can answer questions and explain the details. Final Report Patient Name: MARIA DEL CARMEN MCCARTNEY : 1955 (Age: 69) Gender: F Address: [address] [facility] Hospital #: [id number] Service: Gastro Location: Patient Type: [facility] OUTPATIENT Taken: 05/04/2025 Received: 05/04/2025 Accessioned: 05/04/2025 Reported: 05/05/2025 Physician(s): Mark Westfall NP Diagnosis: A. Colon, transverse, polyp, polypectomy: -Tubular adenoma. B. 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 C. Colon, sigmoid, polyp, polypectomy: -Hyperplastic polyps. D. Rectum, polyp, polypectomy: -Hyperplastic polyp. Diagnosis Comment: Colonic leiomyoma is a benign and incidental finding and does not need endoscopic followup once removed. Yolanda Thompson MD, PHD Report Electronically Reviewed and Signed Out By Yolanda Thompson MD, PHD 05/05/2025 19:09:25 Specimen(s) Received: A: Transverse colon polyp biopsy (cold biopsy) B: Sigmoid colon polyp (hot snare) C: Sigmoid colon polyp biopsy (cold biopsy) D: Rectal polyp biopsy (cold biopsy) Microscopic Description: Unless gross-only is specified, the final diagnosis for each specimen is based on a microscopic examination of each tissue sample. Clinical History: The patient is a 69-year-old woman with a positive colorectal cancer screening. Operative procedure: Colonoscopy with biopsy. Gross Description Received in four formalin jars labeled with the patient's identifiers. A. Labeled transverse colon polyp biopsy (cold biopsy) and consists of a fragment of baum-pink tissue measuring 0.4 cm. Submitted entirely. Labeled A1. Jar 0. B. Labeled sigmoid colon polyp (hot snare) and consists of a fragment of baum-pink tissue measuring 0.5 cm (margin inked). Submitted entirely. Labeled B1. Jar 0. C. Labeled sigmoid colon polyp biopsy (cold biopsy) and consists of two fragments of baum-pink tissue both measuring 0.3 cm. Submitted entirely. Labeled C1. Jar 0. D. Labeled rectal polyp biopsy (cold biopsy) and consists of two fragments of baum-pink tissue measuring 0.2 and 0.4 cm. Submitted entirely. Labeled D1. Jar 0. [facility]/05/04/2025 14:51 DARRIUS Lora Microscopic slide review and interpretation for this case was performed at [facility], Department of Surgical Pathology, [address] [facility] [place] [place] [id number], [place] [address] CLIA # [id number] us Issac Willis MD LAB PATHOLOGY ORDERABLES Final R esult PATHOLOGY [facility] * Colonoscopy (05/04/2025 10:59 AM CDT) Anatomical Region Laterality Modality Other Narrative Procedure Note Issac Willis MD - 05/04/2025 10:59 AM CDT [facility] GI ENDOSCOPY Patient Name: Maria Del Carmen Mccartney Procedure Date: 05/04/2025 10:59 AM Date of : 1955 Admit Type: Outpatient Age: 69 Gender: Female Attending MD: Issac Willis M.D. Room: [facility] ENDOSCOPY ROOM 03 Note Status: Finalized Procedure: Colonoscopy Indications: Positive Cologuard test, Family history of rectal cancer Referring MD: Providers: Issac Willis M.D. Medicines: Monitored Anesthesia Care Complications: No immediate complications. Estimated Blood Loss: Estimated blood loss: none. Procedure: Pre-Anesthesia Assessment: - Prior to the procedure, a History and Physicalwas performed, and patient medications and allergieswere reviewed. The risks and benefits of the procedureand the sedation options and risks were discussed withthe patient. All questions were answered and informed consent was obtained. Patient identification and proposed procedure were verified. After reviewingthe risks and benefits, the patient was deemed in satisfactory condition to undergo the procedure.The anesthesia plan was to use monitored anesthesiacare (MAC). Immediately prior to administration of medications, the patient was re-assessed foradequacy to receive sedatives. The heart rate, respiratory rate, oxygen saturations, blood pressure, adequacyof pulmonary ventilation, and response to care were monitored throughout the procedure. The physical status of the patient was re-assessed after the procedure. The benefits, risks and alternatives of theprocedure and sedation were discussed and informed consentwas obtained. All questions were answered. Please referto the signed informed consent document in the medical record. The scope was passed under direct vision.The [id number] colonoscope was introduced through theanus and advanced to the cecum, identified byappendiceal orifice and ileocecal valve. The colonoscopy was performed without difficulty. The patient tolerated the procedure well. The quality of the bowel preparation was fair in the right colon otherwise good. Scope withdrawal time was 15 minutes. Prepwas administered in a split dose. Findings: The perianal and digital rectal examinations were normal. A diminutive polyp was found in the transverse colon. The polyp was removed with a cold biopsy forceps. Resection and retrieval were complete. A 10 mm polyp was found in the sigmoid colon. The polyp was sessile.The polyp was removed with a hot snare. Resection and retrieval were complete. Two diminutive polyps were found in the sigmoid colon. The polypswere removed with a cold biopsy forceps. Resection and retrieval were complete. A diminutive polyp was found in the rectum. The polyp was removedwith a cold biopsy forceps. Resection and retrieval were complete. Non-bleeding internal hemorrhoids were found during retroflexion. The hemorrhoids were small. The exam was otherwise without abnormality. Impression: - Preparation of the colon was fair. - One diminutive polyp in the transverse colon, removed with a cold biopsy forceps. Resected and retrieved. - One 10 mm polyp in the sigmoid colon, removedwith a hot snare. Resected and retrieved. - Two diminutive polyps in the sigmoid colon,removed with a cold biopsy forceps. Resected andretrieved. - One diminutive polyp in the rectum, removed witha cold biopsy forceps. Resected and retrieved. - Non-bleeding internal hemorrhoids. - The examination was otherwise normal. Recommendation: - Patient has a contact number available for emergencies. The signs and symptoms of potential delayed complications were discussed with thepatient. Return to normal activities tomorrow. Written discharge instructions were provided to thepatient. - High fiber diet. - Continue present medications. - Await pathology results. - Repeat colonoscopy in 1 year for surveillance dueto positive Cologuard test and fair prep in the right colon. Issac Willis M.D. Issac Willis M.D. 05/04/2025 11:36:14 AM . Number of Addenda: 0 Note Initiated On: 05/04/2025 10:59 AM Recognized by the [employer] for promoting quality in endoscopy us Issac Willis MD ENDOSCOPY PROCEDURES Final Resul t * POC Blood Gas and Chemistries, Venous - (05/04/2025 10:07 AM CDT) pH,saji POC 7.40 7.32 - 7.43 pCO2, saji POC 40 40 - 50 mmHg CATIE FERRARI pO2,saji POC 45 mmHg CATIE FERRARI Comment: Interpretive Data No reference range established. Current interpretive data was last revised 2020. HCO3, saji (Calc) POC 25 20 - 30 mmol/L [facility] Base excess, saji POC 0 mmol/L [facility] Comment: Interpretive Data No reference range established. Current interpretive data was last revised 2020. Hemoglobin, saji POC 14.3 11.9 - 15.5 g/dL [facility] Hematocrit, saji POC 42.0 35.6 - 45.5 % [facility] Sodium, saji POC 136 135 - 145 mmol/L [facility] Potassium, saji POC 3.5 3.3 - 4.9 mmol/L [facility] Comment: Interpretive Data This method is not able to assess for hemolysis, which may falsely increase potassium concentrations. If further testing is needed to evaluate this result, consider in-laboratory plasma potassium. Current Interpretive Data was last revised on 2022. Glucose, saji POC 123 70 - 199 mg/dL [facility] Ionized Calcium, saji POC 4.90 4.50 - 5.10 mg/dL [facility] Blood 05/04/2025 10:0 7 AM CDT 05/04/2025 10:07 AM CDT us Issac Willis MD LAB POCT ORDERABLES - DEVICE Fin al Result Performing Organization Address City/State/[facility] Co de Phone Number CATIE [address] [facility] [place] [address] * CT Lung Cancer Screening (12/17/2024 3:57 PM VEST FRONT PRESSER) Anatomical Region Laterality Modality Chest N/A Computed Tomogra phy 12/17/2024 9:32 PM VEST FRONT PRESSER Narrative 12/17/2024 9:36 PM VEST FRONT PRESSER EXAM DESCRIPTION: CT LUNG CANCER SCREENING REASON [...] Bibi Weiss M.D. FT: FT Report ID: [id number] Reading Location: [place] [address] Procedure Note Bibi Gayle MD - 12/17/2024 [...] Bibi Weiss M.D. FT: FT Report ID: [id number] Reading Location: [place] [address] Juvenal Shelby MD IMG CT PROCEDURES Final R esult from Last 3 Months or Most Recently Relevant to Health Maintenance [place] [address] [place] [id number] [facility] [place] [id number] [employer] [place] [address] [place] [id number] Care Teams Customs Brokerage Manager Relationship Specialty Start Date End Date Lety Trotter NP [address] [address] PCP - General Family Medicine 11/17/24
--- OUTSIDE RECORDS SUMMARY | 2025-07-16 12:47 | XMS_ITS | Clinical Summary ---
Author Organization [facility] Address [address] [place] [address] Care Team Providers Care Barrel Stave Inspector Name Role Phone Patricia Meléndez MD Primary Care Provider [phone] Social History Tobacco Use Types Packs/Day Years Used Date Smoking Tobacco: Smoker, Current Status Unknown Comments Unknown Sex and Gender Information Value Date Recorded Sex Assigned at Not on file Legal Sex Female 11:36 PM CDT Gender Identity Not on file Sexual Orientation Not on file Last Filed Vital Signs Vital Sign Reading Time Taken Comments Blood Pressure 132/84 06/23/2015 8:46 AM CDT Pulse 72 06/23/2015 8:45 AM CDT Temperature - - Respiratory Rate - - Oxygen Saturation - - Inhaled Oxygen Concentration - - Weight 119.7 kg (264 lb) 06/23/2015 8:45 AM CDT Height 167.6 cm (5' 6) 06/23/2015 8:45 AM CDT Body Mass Index 42.61 06/23/2015 8:45 AM CDT Plan of Treatment Health Maintenance Due Date Last Done Comments Colorectal Cancer Screening Colonoscopy (10 Years) 1955 Hepatitis C 1972 DTaP, Tdap and Td Vaccines ( 1 - Tdap) 1973 Mammogram Screening 1994 Pneumococcal Vaccine: 50+ Ye ars (1 of 1 - PCV) 2004 Zoster Vaccines (1 of 2) 2004 Dexa Scan (General) 2019 COVID-19 Vaccine ( - 2023-2 5 season) 2024 RSV Immunization or 60+ Years (1 - 1-dose 75+ series) 2029 Meningococcal B Vaccine Aged Out No l onger eligible based on patient's age to complete this topic Meningococcal Vaccine Aged Out No moises hiral eligible based on patient's age to complete this topic RSV Immunizations Under 20 Months Aged Out No longer eligible based on patient's age to complete this topic Care Teams Barrel Stave Inspector Relationship Specialty Start Date End Date Patricia Meléndez MD PCP - General 06/29/15
--- OUTSIDE RECORDS SUMMARY | 2025-07-16 12:47 | XMS_ITS | Clinical Summary ---
Author Organization [facility] Address [address] [place] [address] Care Team Providers Care Customer Support Advisor Name Role Phone Patricia Meléndez MD Primary Care Provider Source Comments [facility],non-owned Affiliates and Associated Physician Practices is amultiple site organization consisting of ambulatory clinics and hospital sitesin [place], [place], [place] and [place]. This disclosure is being madepursuant to the Care Everywhere program and may not contain all information available regarding this patient. Last updated 18.[facility] Active Problems Problem Noted Date Diagnosed Date [...] on file Legal Sex Female 6:21 PM ACCOUNT ENGINEER Gender Identity Not on file Sexual Orientation Not on file Last Filed Vital Signs Vital Sign Reading Time Taken Comments Blood Pressure 149/88 01/07/2015 3:29 PM ACCOUNT ENGINEER Pulse 97 01/07/2015 3:29 PM ACCOUNT ENGINEER Temperature 37.3 C (99.1 F) 01/07/2015 3:29 PM ACCOUNT ENGINEER Respiratory Rate 18 01/07/2015 3:29 PM ACCOUNT ENGINEER Oxygen Saturation - - Inhaled Oxygen Concentration - - Weight 115.7 kg (255 lb) 01/07/2015 3:29 PM ACCOUNT ENGINEER Height 167.6 cm (5' 6) 01/07/2015 3:29 PM ACCOUNT ENGINEER Body Mass Index 41.16 01/07/2015 3:29 PM ACCOUNT ENGINEER Plan of Treatment Health Maintenance Due Date [...] 60-74 years 1-dose series) 2014 COVID-19 VACCINE (1 - 2023-2 5 season) 2024 DEPRESSION SCREENING 11/26/2024 INFLUENZA VACCINE (#1) 2025 HEPATITIS C SCREENING Completed 11/05/2014 HEPATITIS [...] HEPATITIS C ANTIBODY Routine 11/05/2014 5:25 PM ACCOUNT ENGINEER from Last 3 Months or Most Recently Relevant to Health Maintenance Results * HEPATITIS C ANTIBODY (11/05/2014 5:25 PM ACCOUNT ENGINEER) Hepatitis C Antibody [facility] Comment: Hepatitis C Antibody screen indicates no serologic evidence of past or current infection with Hepatitis C Virus. Patients with unexplained liver disease who are immunocompromised or suspected of having acute Hepatitis C infection may benefit from Nucleic Acid Test (GRACE) for Hepatitis C Viral RNA to confirm Hepatitis C status. Blood specimen (specimen) BLOOD SPECIMEN / Unknown 11/05/2014 5:25 PM ACCOUNT ENGINEER 11/05/2014 6:39 PM ACCOUNT ENGINEER Colt Alexander MD LAB - CHEMISTRY ORDERABLES Migdalia mast Result [address] [phone] from Last 3 Months or Most Recently Relevant to Health Maintenance Insurance [employer] Care Teams Customer Support Advisor Relationship Specialty Start Date End Date Patricia Meléndez MD [address] [address] PCP - General 11/05/14
--- OUTSIDE RECORDS SUMMARY | 2025-07-16 12:47 | XMS_ITS | Encounter Summary ---
Author Organization [facility] Facility Care Team Providers Care Director River Restoration Name Role Phone Patricia Meléndez MD Primary Care Provider [phone] Lety Trotter NP Primary Care Provid er Encounter Details Date Type Department Care Team (Latest Contact Info) Description 09/18/2018 Orders Only [facility] CLINCONV ProviderModesta MD [address] [place], [place] [id number] Social History Tobacco Use Types Packs/Day Years Used Date Smoking Tobacco: Never Assessed Comments Unknown Sex and Gender Information Value Date Recorded Sex Assigned at Not on file Legal Sex Female 8:[address] IN TELLER Gender Identity Female 11/21/2022 4:[address] IN TELLER Sexual Orientation Straight 11/21/2022 4: [address] TELLER documented as of this encounter Plan of Treatment Not on file documented as of this encounter Procedures Procedure Name Priority Date/Time Associated Diagnosis Comments PROCEDURE - RESULT 09/18/2018 12 :00 AM CDT documented in this encounter Results * PROCEDURE - RESULT (09/18/2018 12:00 AM CDT) Narrative 09/18/2018 12:00 AM CDT Ordered by an unspecified provider. Historical Provider Final Res ult documented in this encounter Visit Diagnoses Not on filedocumented in this encounter Care Teams Director River Restoration Relationship Specialty Start Date End Date Patricia Meléndez MD [address] [facility] [address] [place] [address] PCP - General 01/07/19 11/21/22 Lety Trotter NP [address] [facility] [address] [place] [address] PCP - General Family Medicine 11/17/24 documented as of this encounter
[2025-07-16 13:49] LABS: Free T4 Free Thyroxine 1.23 ng/dL (0.78-2.19)
[2025-07-16 14:15] LABS: Cholesterol 129 mg/dL (0-200); HDL Direct 41 mg/dL; Triglycerides 216 mg/dL (<150)
[2025-07-16 14:26] LABS: Hemoglobin A1C 6.1 % (<5.7)
[2025-07-16 14:47] LABS: Thyroid Stimulating Hormone 1.500 uIU/mL (0.465-4.680)
== END 2025-07-16 12:41 | disposition home or self-care (01) ==
LOC: ANHLAB 12:46
DX: E03.9 Hypothyroidism, unspecified (principal); I10 Essential (primary) hypertension; R73.03 Prediabetes; E78.5 Hyperlipidemia, unspecified
CPT/HCPCS: 36415; 80061; 83036; 84439; 84443

== ENCOUNTER 2025-08-10 11:54 | Outpatient (CLI) | payer MEDICARE, SELFPAY ==
--- NOTE | ~2025-08-10 | XR_ITS ---
XR lumbar spine 2-3V 08/10/2025 12:33 Indication: Acute low back pain Procedure: 3 views lumbar spine Comparison: No prior studies for comparison. Findings: There is disc narrowing at all lumbar levels. There is facet hypertrophy at L4-5 and L5-S1 with grade 1 degenerative spondylolisthesis at L4- 5 and L5-S1. No fracture or traumatic malalignment. Pedicles intact. Impression: 1: Moderate lumbar spondylosis. Reviewed, dictated and finalized at location O. Impression: 1: Moderate lumbar spondylosis.
[2025-08-10 12:45] LABS: Hematocrit 37.2 % (37.0-47.0); Hemoglobin 12.4 g/dL (12.0-15.0); Mean Corpuscular HGB Conc 33.3 g/dl (32-36); Mean Corpuscular Hemoglobin 30.7 pg (26-34); Mean Corpuscular Volume 92.1 fl (80-100); Platelet Count Result 215 k/mm3 (150-375); Red Blood Count 4.04 M/mm3 (4.2-5.4); White Blood Count 8.8 K/mm3 (4.5-10.0)
[2025-08-10 13:07] LABS: Alanine Aminotransferase 33 U/L (6-35); Albumin Level 4.3 g/dL (3.5-5.1); Alkaline Phosphatase 87 U/L (38-126); Anion Gap 8 mmol/L (4-12); Aspartate Amino Transferase 34 U/L (14-36); Bilirubin,Total 0.7 mg/dL (0.2-1.3); Blood Urea Nitrogen 11 mg/dL (7-17); Calcium 9.4 mg/dL (8.4-10.2); Carbon Dioxide 28 mmol/L (22-30); Chloride 95 mmol/L (98-107); Estimated Glomerular Filt Rate 55; Glucose 108 mg/dL (65-110); Potassium 4.0 mmol/L (3.4-5.0); Sodium 131 mmol/L (137-145); Total Protein 7.5 g/dL (6.3-8.2)
== END 2025-08-10 11:55 | disposition home or self-care (01) ==
DX: M47.896 Other spondylosis, lumbar region (principal); I10 Essential (primary) hypertension
CPT/HCPCS: 36415; 72100; 80053; 85027

== ENCOUNTER 2025-09-14 17:51 | Emergency (ER) | payer MEDICARE, SELFPAY ==
--- NOTE | ~2025-09-14 | XR_ITS ---
XR shoulder RT min 2V HISTORY: fall, pain . COMPARISON: None. FINDINGS: External and internal rotated views and scapular Y view of the right shoulder demonstrate humeral head is displaced anterior medial and inferior relative to the glenoid. No acute fracture. IMPRESSION: Anterior shoulder dislocation. Reviewed, dictated and finalized at location S.
--- NOTE | ~2025-09-14 | XR_ITS ---
XR shoulder RT min 2V HISTORY: POST REDUCTION . COMPARISON: X-ray same day FINDINGS: External and internal rotated views and scapular Y view of the right shoulder demonstrate satisfactory reduction of anterior shoulder dislocation. No acute fracture. IMPRESSION: Satisfactory reduction of anterior shoulder dislocation. Reviewed, dictated and finalized at location S.
[2025-09-14 18:23] VITALS: BP 143/74; PULSE 67; RESP 20; TEMP 36.3; O2SAT 94
--- OUTSIDE RECORDS SUMMARY | 2025-09-14 19:12 | XMS_ITS | Encounter Summary ---
Author Organization [facility] Facility Care Team Providers Care Cashier Manager Name Role Phone Patricia Meléndez MD Primary Care Provider [phone] Lety Trotter NP Primary Care Provid er Encounter Details Date Type Department Care Team (Latest Contact Info) Description 09/18/2018 Orders Only [facility] CLINCONV ProviderModesta MD [address] [place], [place] [id number] Social History Tobacco Use Types Packs/Day Years Used Date Smoking Tobacco: Never Assessed Comments Unknown Sex and Gender Information Value Date Recorded Sex Assigned at Not on file Legal Sex Female 8:14 PM GRILL CHEF Gender Identity Female 11/21/2022 4:52 PM GRILL CHEF Sexual Orientation Straight 11/21/2022 4: 52 PM GRILL CHEF documented as of this encounter Plan of [...] on filedocumented in this encounter Care Teams Cashier Manager Relationship Specialty Start Date End Date Patricia Meléndez MD [address] [facility] [address] [place] [address] PCP - General 01/07/19 11/21/22 Lety Trotter NP [address] [facility] [address] [place] [address] PCP - General Family Medicine 11/17/24 documented as of this encounter
--- OUTSIDE RECORDS SUMMARY | 2025-09-14 19:12 | XMS_ITS | Clinical Summary ---
Author Organization [facility] Address [address] [place] [address] Care Team Providers Care Medical Instructor Name Role Phone Patricia Meléndez MD Primary Care Provider [phone] Source Comments [facility],non-owned Affiliates and Associated Physician Practices is amultiple site organization consisting of ambulatory clinics and hospital sitesin [place], [place], [place] and [place]. This disclosure is being madepursuant to the Care Everywhere program and may not contain all information available regarding this patient. Last updated 18.[facility] [employer] Active Problems Problem Noted Date Diagnosed Date [...] on file Legal Sex Female 6:21 PM OIL RECOVERY UNIT OPERATOR Gender Identity Not on file Sexual Orientation Not on file Last Filed Vital Signs Vital Sign Reading Time Taken Comments Blood Pressure 149/88 01/07/2015 3:29 PM OIL RECOVERY UNIT OPERATOR Pulse 97 01/07/2015 3:29 PM OIL RECOVERY UNIT OPERATOR Temperature 37.3 C (99.1 F) 01/07/2015 3:29 PM OIL RECOVERY UNIT OPERATOR Respiratory Rate 18 01/07/2015 3:29 PM OIL RECOVERY UNIT OPERATOR Oxygen Saturation - - Inhaled Oxygen Concentration - - Weight 115.7 kg (255 lb) 01/07/2015 3:29 PM OIL RECOVERY UNIT OPERATOR Height 167.6 cm (5' 6) 01/07/2015 3:29 PM OIL RECOVERY UNIT OPERATOR Body Mass Index 41.16 01/07/2015 3:29 PM OIL RECOVERY UNIT OPERATOR Plan of Treatment Health Maintenance Due Date [...] - Risk 60-74 years 1-dose series) 2014 DEPRESSION SCREENING 11/26/2024 COVID-19 VACCINE (1 - 2023-2 5 season) 2025 INFLUENZA VACCINE (#1) 2025 HEPATITIS C SCREENING [...] HEPATITIS C ANTIBODY Routine 11/05/2014 5:25 PM OIL RECOVERY UNIT OPERATOR from Last 3 Months or Most Recently Relevant to Health Maintenance Results * HEPATITIS C ANTIBODY (11/05/2014 5:25 PM OIL RECOVERY UNIT OPERATOR) Hepatitis C Antibody [facility] Comment: Hepatitis C Antibody screen indicates no serologic evidence of past or current infection with Hepatitis C Virus. Patients with unexplained liver disease who are immunocompromised or suspected of having acute Hepatitis C infection may benefit from Nucleic Acid Test (GRACE) for Hepatitis C Viral RNA to confirm Hepatitis C status. Blood specimen (specimen) BLOOD SPECIMEN / Unknown 11/05/2014 5:25 PM OIL RECOVERY UNIT OPERATOR 11/05/2014 6:39 PM OIL RECOVERY UNIT OPERATOR Colt Alexander MD LAB - CHEMISTRY ORDERABLES Migdalia mast Result [address] [phone] from Last 3 Months or Most Recently Relevant to Health Maintenance Insurance [employer] Care Teams Medical Instructor Relationship Specialty Start Date End Date Patricia Meléndez MD [address] [address] PCP - General 11/05/14
--- OUTSIDE RECORDS SUMMARY | 2025-09-14 19:12 | XMS_ITS | Clinical Summary ---
Author Organization [facility] Address [address] [place] [address] Care Team Providers Care Director Of Special Education Name Role Phone Lety Trotter KE Primary [...] 01/15/2024 Assessment & Plan (01/20/2025 2:40 PM PHONE BANKER): The patient will continue with Provigil 200 mg p.o. Q a.m.. Assessment & Plan (01/15/2024 2:47 PM PHONE BANKER): The patient has hypersomnia not completely treated with CPAP for CHRISTO. She is trying to get a refill on her Provigil 200 mg p.o. q.a.m.. Hyponatremia 06/11/2023 Pain in both feet 05/18/2023 Morbid (severe) obesity due to excess calories 0 01/02/2023 Body mass index 40.0-44.9, adult ([facility]) 01/02 Personal history of tobacco use 01/02/2023 Assessment & Plan (01/20/2025 2:40 PM PHONE BANKER): I have ordered a low-dose screening CT scan for November 2025. The patient did stop smoking 2017 and August. Assessment & Plan (01/15/2024 2:47 PM PHONE BANKER): She quit smoking in 2017. She did smoke 1.5 packs of cigarettes per day for 40 years. I will order another screening chest CT for next November 2024 Assessment & Plan (01/02/2023 3:15 PM PHONE BANKER): I have ordered a lung cancer screening CT for December of 2023 Patient's smoking history is 1 and half packs of cigarettes per day for 40 years and quit in August 2018 BMI 40.0-44.9, adult 12/04/2022 Hyperlipidemia 05/06/2019 Prediabetes 06/27/2017 Obstructive sleep apnea syndrome 11/02/2016 Assessment & Plan (01/20/2025 2:39 PM PHONE BANKER): Patient continue to wear her CPAP at 17 cm water pressure while sleeping. Her DME is [facility]. Assessment & Plan (01/15/2024 2:47 PM PHONE BANKER): The patient continues to benefit from the auto titrating CPAP unit with a range of 7-10 cm water pressure for ongoing symptoms CHRISTO. Her DME supplier is [facility] in [place]. She will follow up here in 1 year. Assessment & Plan (01/02/2023 3:15 PM PHONE BANKER): Will continue CPAP at 17 cm water pressure. DME [facility] Assessment & Plan (01/03/2022 2:47 PM PHONE BANKER): The patient will continue with CPAP therapy at 17 cm water pressure. The patient denied need for supplies. DME company [facility]. The patient and I discussed [...] 01/03/202201/15 Assessment & Plan (01/02/2023 3:15 PM PHONE BANKER): Will continue Provigil 200 mg daily. I will refill for 1 year Assessment & Plan (01/03/2022 2:47 PM PHONE BANKER): The patient will continue with Provigil 200 mg daily. I have reordered the medication for 1 years worth of refills. Surgical History Surgery Date Site/Laterality Comments COLONOSCOPY [...] on file Legal Sex Female 8:14 PM PHONE BANKER Gender Identity Female 11/21/2022 4:52 PM PHONE BANKER Sexual Orientation Straight 11/21/2022 4: 52 PM PHONE BANKER Obstetrics History Last Filed Vital Signs Vital [...] Zoster Vaccine (2 of 2) 11/13/2023 09/18/2023 Osteoporosis Screening-Bone Density Scan 12/05/2024 12/05/2022 Covid-19 Vaccine (3 - 2024-2 6 season) 2025 03/01/2021, 02/06/2021 Influenza Vaccine (#1) 2025 , 08/17/2021, 2020, [...] 2:31 PM CDT Screening mammogram, encounter for COLONOSCOPY 05/04/2025 10:[address] LUNG CANCER SCREENING Schedule Routine, Read Routine (OP Routine) 12/17/2024 3:57 PM PHONE BANKER Personal history of tobacco use from Last [...] age 39, based on guidelines of the [employer] (ACR Practice Parameter for the Performance of Screening and Diagnostic Mammography) and [employer]. For women [...] IMG MAMMO PROCEDURES Fi nal Result * Colonoscopy (05/04/2025 10:59 AM CDT) Anatomical Region Laterality Modality Other Narrative Procedure Note Issac Willis MD - 05/04/2025 10:59 AM CDT [facility] GI ENDOSCOPY Patient Name: Maria Del Carmen Mccartney Procedure Date: 05/04/2025 10:59 AM Date of : 1955 Admit Type: Outpatient Age: 69 Gender: Female Attending MD: Issac Willis M.D. Room: [facility] ENDOSCOPY ROOM 03 Note Status: Finalized Procedure: [...] The scope was passed under direct vision.The PCF-ET041F colonoscope was introduced through theanus and advanced [...] On: 05/04/2025 10:59 AM Recognized by the [employer] for promoting quality in endoscopy us Issac Willis MD ENDOSCOPY PROCEDURES Final Resul t * CT Lung Cancer Screening (12/17/2024 3:57 PM PHONE BANKER) Anatomical Region Laterality Modality Chest N/A Computed Tomogra phy 12/17/2024 9:32 PM PHONE BANKER Narrative 12/17/2024 9:36 PM PHONE BANKER EXAM DESCRIPTION: CT LUNG CANCER SCREENING REASON [...] Bibi Weiss M.D. FT: FT Report ID: [id number] Reading Location: [id number] Procedure Note Bibi Gayle MD - 12/17/2024 [...] Bibi Weiss M.D. FT: FT Report ID: [id number] Reading Location: [place] [address] Juvenal Shelby MD IMG CT PROCEDURES Final R esult from Last 3 Months or Most Recently Relevant to Health Maintenance Insurance [facility] [place]ARE [place] [id number] [facility] [place] [address] [place] [phone] Care Teams Director Of Special Education Relationship Specialty Start Date End Date Lety Trotter NP [address] [address] PCP - General Family Medicine 11/17/24
--- OUTSIDE RECORDS SUMMARY | 2025-09-14 19:12 | XMS_ITS | Clinical Summary ---
Author Organization [facility] Address [address] [place] [address] Care Team Providers Care Trail Construction Worker Name Role Phone Patricia Meléndez MD Primary Care Provider [phone] Social History Tobacco Use Types Packs/Day Years [...] COVID-19 Vaccine ( - 2023-2 5 season) 2025 Influenza Adult (#1) 2025 RSV Immunization or 60+ Years (1 - 1-dose 75+ series) 2029 Hepatitis A Vaccines Aged Out No long er eligible based on patient's age to complete this topic Meningococcal B Vaccine Aged Out No l onger eligible based on patient's age to complete this topic Meningococcal Vaccine Aged Out No moises hiral eligible based on patient's age to complete this topic RSV Immunizations Under 20 Months Aged Out No longer eligible based on patient's age to complete this topic Care Teams Trail Construction Worker Relationship Specialty Start Date End Date Patricia Meléndez MD PCP - General 06/29/15
--- NOTE | 2025-09-14 19:31 | ED.FALL ---
HPI - Fall General Chief Complaint: Fall Stated Complaint: fall off ladder-right shoulder pain Time Seen by Provider: 09/14/25 19:12 Source: patient and family Mode of arrival: ambulatory Limitations: no limitations History of Present Illness HPI Narrative: This is a 69-year-old female with history of hypertension, diabetes who presents the ED for fall and shoulder pain. Patient states that she was on the bottom rung of a ladder when she lost her balance and fell directly onto her right shoulder. She has shoulder pain at this time. Denies numbness, tingling. Denies hitting her head, loss conscious. She is not on any blood thinners. Related Data Home Medications ?Medication ?Instructions ?Recorded ?Confirmed ?Last Taken ?Type atorvastatin 10 mg tablet 10 mg PO DAILY 07/31/20 07/11/22 07/23/22 History hydrochlorothiazide 50 mg tablet 50 mg PO DAILY 07/31/20 07/11/22 07/23/22 History levothyroxine 125 mcg tablet 125 mcg PO DAILY 07/31/20 07/11/22 07/23/22 History modafinil 200 mg tablet 200 mg PO DAILY 07/31/20 07/11/22 07/23/22 History trazodone 100 mg tablet 100 mg PO DAILY 07/31/20 07/11/22 07/23/22 History multivitamin-ferrous 1 tablet PO DAILY 07/11/22 07/11/22 07/23/22 History fumarate-folic acid 18 mg-400 mcg tablet (Centrum Women) Allergies Allergy/AdvReac Type Severity Reaction Status Date / Time No Known Allergies Allergy Verified 09/14/25 18:23 Review of Systems Review of Systems: Gen.: Denies fevers or chills Eyes: Denies eye pain or visual change ENT: Denies congestion Respiratory: Denies shortness of breath or cough CV: Denies chest pain or palpitations GI: Denies abdominal pain nausea, emesis or diarrhea denies burning, urgency, frequency or hematuria Musculoskeletal: As per HPI Neuro: Denies numbness, tingling, weakness or focal weakness Skin: Denies rash Except as documented, all other systems reviewed and negative PMFSH Past Medical History Medical History Anxiety Hypothyroidism CHRISTO on CPAP HTN (hypertension) Hyperlipidemia Morbid obesity with BMI of 40.0-44.9, adult Family History Family History Other Carcinoma of colon Diabetes mellitus Family history of cardiovascular disease Family history of chronic obstructive pulmonary disease Family history of congestive heart failure Family history of lung cancer Family history of lymphoma Social History Social History Smoking status: Former smoker Tobacco type: cigarettes Alcohol intake: current Substance use type: does not use Living arrangements: with family Spiritual care concerns: No Exam Narrative: APPEARANCE: No acute distress, nontoxic, resting in bed EYES: EOMI HEENT: Normocephalic, atraumatic, OMM RESPIRATORY: No respiratory distress Clear to auscultation bilaterally with no rhonchi wheezing or rales. CARDIOVASCULAR: Regular rate and rhythm without murmurs rubs or gallops. ABDOMINAL: Soft, nontender, nondistended, no rebound or guarding MUSCULOSKELETAl: Right upper extremity is braced against table, unable to perform range of motion of the right shoulder. Right shoulder is depressed and there is tenderness in the glenohumeral joint. NEURO: Awake and alert. Following commands, speech normal, no focal deficits SKIN:: Warm, dry. No rashes lesions or abrasions PSYCHIATRIC: Normal affect/mood, Course Vital Signs Vital signs: Vital Signs Temperature 97.4 F L 09/14/25 18:23 Pulse Rate 67 09/14/25 18:23 Respiratory Rate 20 09/14/25 18:23 Blood Pressure 143/74 H 09/14/25 18:23 Pulse Oximetry 94 09/14/25 18:23 Temperature 97.8 F 09/14/25 21:11 Pulse Rate 76 09/14/25 21:11 Respiratory Rate 16 09/14/25 21:11 Blood Pressure 148/78 H 09/14/25 21:11 Pulse Oximetry 100 09/14/25 21:11 Oxygen Delivery Non-Rebreather Mask 09/14/25 20:15 Oxygen Flow Rate 15 09/14/25 20:15 Procedures Orthopedic Joint Reduction Joint #1: Orthopedic Joint Reduction Date: 09/14/25 Orthopedic Joint Reduction Time: 20:10 Time Out Performed: Yes Side: right Joint Reduction Location: shoulder Analgesia: procedural sedation Pre-Procedure Neuro Vascular Exam: normal Shoulder Technique Used (if applicable): traction/counter-traction Post-reduction neuro exam: intact Post-reduction vascular: intact Post Reduction X-Ray Obtained: Yes Post Reduction X-Ray Results: reduced Splint Applied: Yes (sling) Patient Tolerated Procedure: well and no complications MDM - Fall MDM Narrative Medical decision making narrative: 69-year-old female presenting to the ED for a fall and right shoulder pain. On initial evaluation, patient was in [id number] distress, afebrile, hemodynamically stable. X-ray right shoulder did reveal an anterior dislocation. Shoulder was reduced, refer to procedure note above. Subsequent x-ray showed successful reduction of the shoulder. She was neurovascularly intact after this. She was able to fully recover from moderate sedation and was stable to discharge home. She was given a referral to Orthopedic surgery for further evaluation management in the next week. Patient was agreeable to this plan. Given strict return precautions. Differential Diagnosis Differential diagnosis: Likely other (Fracture, sprain, strain, dislocation) Medical Records Attestation: I reviewed the patient's medical records. Imaging Data Attestation: I personally reviewed and interpreted this imaging study as follows: Radiologist's impression: Impressions Shoulder X-Ray 09/14/25 19:14 IMPRESSION: Anterior shoulder dislocation. Shoulder X-Ray 09/14/25 20:37 IMPRESSION: Satisfactory reduction of anterior shoulder dislocation. Discharge Plan Discharge Clinical Impression: Anterior shoulder dislocation Qualifiers: Encounter type: initial encounter Laterality: right Qualified Code(s): S43.014A - Anterior dislocation of right humerus, initial encounter Patient Disposition: Home Condition: Stable Instructions: Antibiotic Form, Shoulder Dislocation (ED), Moderate Sedation (ED) Additional Instructions: You were seen in the ED today for fall and shoulder pain. You were found to have a dislocated right shoulder. This was reduced successfully. Keep the sling on the next week. Follow-up with your PCP in the next week for re-evaluation. Follow-up with orthopedic surgery the next week or 2 for re-evaluation if needed. You may take Tylenol ibuprofen for the pain. Your given his prescription for tizanidine, take this as prescribed. Return to the ED for any new or worsening symptoms. Patient Language: Belarusian Prescriptions: New tizanidine 4 mg capsule 4 mg PO HS PRN (Reason: muscle spasticity) Qty: 30 0RF No Action atorvastatin 10 mg tablet 10 mg PO DAILY hydrochlorothiazide 50 mg tablet 50 mg PO DAILY modafinil 200 mg tablet 200 mg PO DAILY trazodone 100 mg tablet 100 mg PO DAILY levothyroxine 125 mcg tablet 125 mcg PO DAILY Centrum Women 18-400 mg-mcg Tablet 1 tablet PO DAILY Follow-up/Referrals: Corey Cabrera MD [Physician, Orthopedics] PHYSICIAN,AIRFRAME AND POWERPLANT MECHANIC [Primary Care Provider, Internal Medicine]
[2025-09-14 20:09] VITALS: BP 174/110; PULSE 76; RESP 24; TEMP 36.7; O2SAT 95
[2025-09-14 20:12] VITALS: BP 172/98; PULSE 76; RESP 19; O2SAT 92
[2025-09-14 20:15] VITALS: BP 155/79; PULSE 76; RESP 19; O2SAT 100
[2025-09-14 20:23] VITALS: BP 156/75; PULSE 72; RESP 18; O2SAT 96
[2025-09-14 21:11] VITALS: BP 148/78; PULSE 76; RESP 16; TEMP 36.6; O2SAT 100
== END 2025-09-14 21:12 | disposition home or self-care (01) ==
PROVIDERS: Emergency Provider Student in an Organized Health Care Education/Training Program
DX: S43.014A Anterior dislocation of right humerus, initial encounter (principal); F41.9 Anxiety disorder, unspecified; E03.9 Hypothyroidism, unspecified; G47.30 Sleep apnea, unspecified; E78.5 Hyperlipidemia, unspecified; W11.XXXA Fall on and from ladder, initial encounter
CPT/HCPCS: 23650; 73030; 96374; 99285; A4565

== ENCOUNTER 2025-09-16 10:23 | Emergency (ER) | payer MEDICARE, SELFPAY ==
--- NOTE | ~2025-09-16 | XR_ITS ---
EXAMINATION: XR shoulder RT min 2V, 09/16/2025 10:50 CDT HISTORY: r/o dislocation COMPARISON: No comparisons available. Findings: The humeral head is dislocated anteriorly and inferiorly. No significant degenerative changes. Soft tissues unremarkable. Impression: Dislocation detailed above Reviewed, dictated and finalized at location P. Impression: Dislocation detailed above
[2025-09-16 10:48] VITALS: BP 142/63; PULSE 69; RESP 20; TEMP 36.6; O2SAT 96
--- NOTE | 2025-09-16 11:11 | ED.UPPEXIN ---
HPI - Extremity Injury (Upper) General Chief Complaint: Extremity Injury, Upper Stated Complaint: Right Shoulder Possibly Dislocated Time Seen by Provider: 09/16/25 11:00 Source: patient and RN notes reviewed Mode of arrival: ambulatory Limitations: no limitations History of Present Illness HPI narrative: 69-year-old female presents Express Care complaining of possible right shoulder dislocation. Two days ago patient was seen in the ER for fall and dislocated her right shoulder. Shoulder was reduced in the ER she was discharged with a sling. Patient says she moves her shoulder shortly after she was discharged and felt a pop in her shoulder again since then she has had a lot of pain and unable to move her shoulder very much. Patient denies any numbness or tingling, or any other symptoms. Patient has not not seeked medical attention since it popped again. Related Data Home Medications ?Medication ?Instructions ?Recorded ?Confirmed ?Last Taken ?Type atorvastatin 10 mg tablet 10 mg PO DAILY 07/31/20 09/16/25 07/23/22 History hydrochlorothiazide 50 mg tablet 50 mg PO DAILY 07/31/20 09/16/25 07/23/22 History levothyroxine 125 mcg tablet 125 mcg PO DAILY 07/31/20 09/16/25 07/23/22 History modafinil 200 mg tablet 200 mg PO DAILY 07/31/20 09/16/25 07/23/22 History trazodone 100 mg tablet 100 mg PO DAILY 07/31/20 09/16/25 07/23/22 History multivitamin-ferrous 1 tablet PO DAILY 07/11/22 09/16/25 07/23/22 History fumarate-folic acid 18 mg-400 mcg tablet (Centrum Women) bupropion HCl 200 mg tablet,12 hr mg PO 09/16/25 Unknown History sustained-release meloxicam 15 mg tablet mg 09/16/25 Unknown History Allergies Allergy/AdvReac Type Severity Reaction Status Date / Time No Known Allergies Allergy Verified 09/16/25 10:45 Review of Systems Review of Systems: CONSTITUTIONAL: Denies fever, chills, or sweats. EYES: Denies visual changes, redness, or discharge. ENT: Denies rhinorrhea, congestion, sore throat, or otalgia. CARDIOVASCULAR: Denies chest pain, palpitations, or edema. RESPIRATORY: Denies cough or dyspnea. GASTROINTESTINAL: Denies abdominal pain, nausea, vomiting, or diarrhea. GENITOURINARY: Denies dysuria or hematuria. SKIN: Denies rash or itching. MUSCULOSKELETAL: Denies back pain, joint pain, or myalgia. Positive for right shoulder pain. NEUROLOGIC: Denies headache, numbness, or weakness. PSYCHIATRIC: Denies anxiety or depression. All other systems reviewed are negative, except as documented in HPI. [facility] Past Medical History Medical History Anxiety Hypothyroidism CHRISTO on CPAP HTN (hypertension) Hyperlipidemia Morbid obesity with BMI of 40.0-44.9, adult Family History Family History Other Carcinoma of colon Diabetes mellitus Family history of cardiovascular disease Family history of chronic obstructive pulmonary disease Family history of congestive heart failure Family history of lung cancer Family history of lymphoma Social History Social History Smoking status: Former smoker Tobacco type: cigarettes Alcohol intake: current Substance use type: does not use Living arrangements: with family Spiritual care concerns: No Comments At the time of my signature, I reviewed and agree with the nursing past medical, surgical, social, and family history. There is no relevant family history pertinent to the patient complaint. Exam Narrative: GENERAL: This is a well-nourished, well-developed adult, in no apparent distress. They are non ill-appearing, nontoxic appearing. Patient wearing a sling. HEAD: normocephalic, atraumatic. EYES: Sclera clear/white. Conjunctiva normal. Vision is grossly intact. Extraocular movements intact EARS: External ears normal, Hearing grossly intact. NOSE: External nose normal THROAT: Mucous membranes moist, NECK: Neck supple, CARDIOVASCULAR: Regular rate and rhythm RESPIRATORY: Respiratory rate normal, respiratory effort nonlabored, no respiratory distress SKIN: warm, Dry, intact with no suspicious lesions or rash, good texture and turgor. NEURO: awake, alert, and oriented to person, place and time. There were no obvious focal neurologic abnormalities. EXTREMITIES: Right shoulder: Limited range of motion to the pain. Patient unable to move her right shoulder. Right radial pulse 2 +and palpable. Capillary refill less than 2 seconds. Sensation intact. Your patient able to wiggle her fingers. Neurovascular status intact. BACK: Nontender without deformity. No CVA tenderness. Course Course Emergency Course: Portions of this record may have been created with voice recognition software Level of Care: Express Care Visit Vital Signs Vital signs: Vital Signs Temperature 97.9 F 09/16/25 10:48 Pulse Rate 69 09/16/25 10:48 Respiratory Rate 20 09/16/25 10:48 Blood Pressure 142/63 H 09/16/25 10:48 Pulse Oximetry 96 09/16/25 10:48 Oxygen Delivery Room Air 09/16/25 10:48 Temperature 97.9 F 09/16/25 10:48 Pulse Rate 69 09/16/25 10:48 Respiratory Rate 20 09/16/25 10:48 Blood Pressure 142/63 H 09/16/25 10:48 Pulse Oximetry 96 09/16/25 10:48 Oxygen Delivery Room Air 09/16/25 10:48 Reviewed Transfer Transfered to: [facility] Transportation: Other (Private vehicle) Transfer rationale: Shoulder dislocation, patient requires higher level care, reduction, ortho consult Accepting physician: Dr. Nolan MDM - Extremity Injury (Upper) MDM Narrative Medical decision making narrative: X-ray of right shoulder shows another dislocation. Patient will need a reduction likely with moderate sedation. It may be difficult to reduce since it has been over 24 hours. Given patient's symptoms, it is recommend the patient seek a higher level care and proceed immediately to the emergency department. Patient is agreeable go to [facility]. Called [facility] and spoke to Dr. Nolan who is aware this patient accepted the patient in transfer. Patient advised to remain NPO proceed immediately to the ER. Neurovascular status intact to her right arm. Patient's nephew medical van driver to the hospital via private vehicle. Differential Diagnosis Differential diagnosis: Likely dislocation of shoulder, fracture of humerus and fracture of clavicle Imaging Data Radiologist's impression: ITS Impressions Shoulder X-Ray 09/16/25 10:59 Impression: Dislocation detailed above Critical Care Time Critical Care Time Critical Care Time: No Discharge Plan Discharge Clinical Impression: Closed dislocation of right shoulder Qualifiers: Encounter type: initial encounter Qualified Code(s): S43.004A - Unspecified dislocation of right shoulder joint, initial encounter Patient Disposition: Acute Care Hospital Condition: Stable Patient Language: Australian Prescriptions: No Action atorvastatin 10 mg tablet 10 mg PO DAILY hydrochlorothiazide 50 mg tablet 50 mg PO DAILY modafinil 200 mg tablet 200 mg PO DAILY trazodone 100 mg tablet 100 mg PO DAILY levothyroxine 125 mcg tablet 125 mcg PO DAILY meloxicam 15 mg tablet bupropion HCl 200 mg tablet sustained-release 12 hr PO tizanidine 4 mg capsule 4 mg PO HS PRN (Reason: muscle spasticity) Qty: 30 0RF Centrum Women 18-400 mg-mcg Tablet 1 tablet PO DAILY Follow-up/Referrals: PHYSICIAN,CUTTER TENDER [Primary Care Provider, Internal Medicine] Time of Disposition: 11:10
== END 2025-09-16 11:10 | disposition short-term general hospital (02) ==
DX: S43.004A Unspecified dislocation of right shoulder joint, initial encounter (principal); X58.XXXA Exposure to other specified factors, initial encounter; I10 Essential (primary) hypertension; E03.9 Hypothyroidism, unspecified; E78.5 Hyperlipidemia, unspecified; E66.01 Morbid (severe) obesity due to excess calories; G47.33 Obstructive sleep apnea (adult) (pediatric); F41.9 Anxiety disorder, unspecified; Z87.891 Personal history of nicotine dependence
CPT/HCPCS: 73030; 99213; G0463

== ENCOUNTER 2025-09-16 11:31 | Emergency (ER) | payer MEDICARE, SELFPAY ==
--- NOTE | ~2025-09-16 | XR_ITS ---
XR shoulder RT min 2V 09/16/2025 12:40 Indication: Postreduction right shoulder dislocation Procedure: 2 views right shoulder Comparison: 09/16/2025 Findings: There is a right anterior shoulder dislocation position not significantly changed. Cannot exclude fracture inferior lip of the glenoid process. Acromioclavicular joint and anatomic alignment. Impression: 1: Right anterior shoulder dislocation with possible fracture inferior margin of the glenoid process. Reviewed, dictated and finalized at location O. Impression: 1: Right anterior shoulder dislocation with possible fracture inferior margin o f the glenoid process.
--- NOTE | ~2025-09-16 | XR_ITS ---
EXAMINATION: XR shoulder RT 1V, 09/16/2025 14:00 CDT HISTORY: POST REDUCTION COMPARISON: No comparisons available. Findings: No acute fracture or malalignment. No significant degenerative changes. Soft tissues unremarkable. Impression: No acute fracture or malalignment. Reviewed, dictated and finalized at location P. Impression: No acute fracture or malalignment.
--- NOTE | ~2025-09-16 | XR_ITS ---
EXAMINATION: XR shoulder RT min 2V, 09/16/2025 13:21 CDT HISTORY: post reduction COMPARISON: No comparisons available. Findings: The humeral head is dislocated anteriorly and inferiorly. No significant degenerative changes. Soft tissues unremarkable. Impression: Persistent dislocation Reviewed, dictated and finalized at location P. Impression: Persistent dislocation
[2025-09-16 11:37] VITALS: BP 154/63; PULSE 72; RESP 18; TEMP 36.4; O2SAT 100
--- NOTE | 2025-09-16 12:00 | PC.NURSE ---
Dr. Nolan at bedside using ultrasound machine to guide lidocaine administration. Pt. is alert and A&Ox4 at this time.
--- NOTE | 2025-09-16 12:15 | PC.NURSE ---
Dr. Nolan successful put pt. R. shoulder back in it's socket. Pt. reported immediate relief. X-ray ordered to confirm. Shoulder immobilizer placed on R. arm. Pt. denies any pain at this time.
--- NOTE | 2025-09-16 12:33 | PC.NURSE ---
Pt. to x-ray.
[2025-09-16 12:40] VITALS: BP 159/78; PULSE 70; RESP 20; O2SAT 92
--- NOTE | 2025-09-16 14:38 | ED.GENADULT ---
HPI - General Adult General Chief complaint: Extremity Injury, Upper Stated complaint: dislocated shoulder Time Seen by Provider: 09/16/25 11:42 History of Present Illness HPI narrative: This is a 69-year-old female [id number] presenting with a dislocated shoulder. Shoulder was reduced 2 days ago. However she felt go back out of place yesterday. She presented to an urgent care earlier today and was sent to the ED for evaluation. Initial injury occurred on 09/14 after she fell off a ladder landing on right shoulder. She has not had any weakness in her hand. She is still having pain in her shoulder. Related Data Home Medications ?Medication ?Instructions ?Recorded ?Confirmed ?Last Taken ?Type atorvastatin 10 mg tablet 10 mg PO DAILY 07/31/20 09/16/25 07/23/22 History hydrochlorothiazide 50 mg tablet 50 mg PO DAILY 07/31/20 09/16/25 07/23/22 History levothyroxine 125 mcg tablet 125 mcg PO DAILY 07/31/20 09/16/25 07/23/22 History modafinil 200 mg tablet 200 mg PO DAILY 07/31/20 09/16/25 07/23/22 History trazodone 100 mg tablet 100 mg PO DAILY 07/31/20 09/16/25 07/23/22 History multivitamin-ferrous 1 tablet PO DAILY 07/11/22 09/16/25 07/23/22 History fumarate-folic acid 18 mg-400 mcg tablet (Centrum Women) bupropion HCl 200 mg tablet,12 hr mg PO 09/16/25 Unknown History sustained-release meloxicam 15 mg tablet mg 09/16/25 Unknown History Allergies Allergy/AdvReac Type Severity Reaction Status Date / Time No Known Allergies Allergy Verified 09/16/25 10:45 [facility] Past Medical History Medical History Anxiety Hypothyroidism CHRISTO on CPAP HTN (hypertension) Hyperlipidemia Morbid obesity with BMI of 40.0-44.9, adult Family History Family History Other Carcinoma of colon Diabetes mellitus Family history of cardiovascular disease Family history of chronic obstructive pulmonary disease Family history of congestive heart failure Family history of lung cancer Family history of lymphoma Social History Social History (Reviewed 09/16/25 @ 11:13 by MARS Whitfield Smoking status: Former smoker Tobacco type: cigarettes Alcohol intake: current Substance use type: does not use Living arrangements: with family Spiritual care concerns: No Exam Narrative: APPEARANCE: No apparent distress. Head: atraumatic. EYES: EOMI, NOSE: Atraumatic NECK: Trachea midline RESPIRATORY: No increased rate of breathing clear to auscultation CARDIOVASCULAR: RRR, no peripheral edema ABDOMINAL: Non-distended MUSCULOSKELETAl: Patient is holding her arm pleasantly at her side. Radian ulnar and median nerve motor function intact. Pulses are intact. Cap refill less than 2 seconds. NEURO: Alert. Moving 4/4 extremities SKIN:: Warm, dry. Normal color PSYCHIATRIC: Normal affect Course Vital Signs Vital signs: Vital Signs Temperature 97.6 F 09/16/25 11:37 Pulse Rate 72 09/16/25 11:37 Respiratory Rate 18 09/16/25 11:37 Blood Pressure 154/63 H 09/16/25 11:37 Pulse Oximetry 100 09/16/25 11:37 Temperature 97.6 F 09/16/25 11:37 Pulse Rate 73 09/16/25 16:10 Respiratory Rate 16 09/16/25 16:10 Blood Pressure 153/75 H 09/16/25 16:10 Pulse Oximetry 97 09/16/25 16:10 Procedures Orthopedic Joint Reduction Joint #1: Orthopedic Joint Reduction Date: 09/16/25 Time Out Performed: Yes Side: right Joint Reduction Location: shoulder Analgesia: nerve block Pre-Procedure Neuro Vascular Exam: normal Local Anesthesia: lidocaine 1% Amount of anesthesic used (mL): 5 Shoulder Technique Used (if applicable): traction/counter-traction Post-reduction neuro exam: intact Post-reduction vascular: intact Post Reduction X-Ray Obtained: Yes Post Reduction X-Ray Results: not reduced Splint Applied: Yes Patient Tolerated Procedure: no complications Medical Decision Making MDM Narrative Medical decision making narrative: -Course: 69-year-old female presenting for shoulder dislocation. Anterior scalene nerve block performed with adequate anesthesia. The shoulder was then reduced using traction counter traction with a palpable clunk. She was placed in a shoulder mobilizer. However repeat imaging showed the shoulder was not reduced. Shoulder was reduced 3 more times and each time despite a palpable clunk the x-rays did not show a reduced shoulder. This was discussed with Dr. Prajapati who believes the patient needs transfer for a shoulder specialist given her unstable shoulder injury. [facility] was called. They are on black and she has been wait listed. I contacted [facility] and spoke with Dr. Mallorie schultz from the orthopedic program. He is happy to see the patient the emergency room where they will try to reduce it. Patient will be transferred via private vehicle. Patient accepted by Dr. Ricks Vital Signs Vital Signs: Vital Signs Temperature 97.6 F 09/16/25 11:37 Pulse Rate 72 09/16/25 11:37 Respiratory Rate 18 09/16/25 11:37 Blood Pressure 154/63 H 09/16/25 11:37 Pulse Oximetry 100 09/16/25 11:37 Temperature 97.6 F 09/16/25 11:37 Pulse Rate 73 09/16/25 16:10 Respiratory Rate 16 09/16/25 16:10 Blood Pressure 153/75 H 09/16/25 16:10 Pulse Oximetry 97 09/16/25 16:10 Discharge Plan Discharge Clinical Impression: Closed dislocation of right shoulder Qualifiers: Encounter type: initial encounter Qualified Code(s): S43.004A - Unspecified dislocation of right shoulder joint, initial encounter Patient Disposition: Home Condition: Stable Instructions: Antibiotic Form, Closed Reduction (ED) Additional Instructions: You were seen in the emergency department for a shoulder dislocation. We were unable to reduce her shoulder. It needs to be evaluated by the orthopedic surgeons at [facility] ED tonight. Please go there directly for further management Patient Language: Maltese Prescriptions: No Action atorvastatin 10 mg tablet 10 mg PO DAILY hydrochlorothiazide 50 mg tablet 50 mg PO DAILY modafinil 200 mg tablet 200 mg PO DAILY trazodone 100 mg tablet 100 mg PO DAILY levothyroxine 125 mcg tablet 125 mcg PO DAILY meloxicam 15 mg tablet bupropion HCl 200 mg tablet sustained-release 12 hr PO tizanidine 4 mg capsule 4 mg PO HS PRN (Reason: muscle spasticity) Qty: 30 0RF Centrum Women 18-400 mg-mcg Tablet 1 tablet PO DAILY Follow-up/Referrals: UNKNOWN,DOCTOR [Primary Care Provider]
--- OUTSIDE RECORDS SUMMARY | 2025-09-16 14:52 | XMS_ITS | Encounter Summary ---
Author Organization [facility] Care Team Providers Care Audiometric Technician Name Role Phone Patricia Meléndez MD Primary Care Provider [phone] Lety Trotter NP Primary Care Provid er Encounter Details Date Type Department Care Team (Latest Contact Info) Description 09/18/2018 Orders Only [facility] CLINCONV ProviderModesta MD [address] [place], [place] [id number] Social History Tobacco Use Types Packs/Day Years Used Date Smoking Tobacco: Never Assessed Comments Unknown Sex and Gender Information Value Date Recorded Sex Assigned at Not on file Legal Sex Female 8:14 PM VIDEO LIBRARY ASSISTANT Gender Identity Female 11/21/2022 4:52 PM VIDEO LIBRARY ASSISTANT Sexual Orientation Straight 11/21/2022 4: 52 PM VIDEO LIBRARY ASSISTANT documented as of this encounter Plan of [...] on filedocumented in this encounter Care Teams Audiometric Technician Relationship Specialty Start Date End Date Patricia Meléndez MD [address] [facility] [address] [place] [address] PCP - General 01/07/19 11/21/22 Lety Trotter NP [address] [facility] [address] [place] [address] PCP - General Family Medicine 11/17/24 documented as of this encounter
--- OUTSIDE RECORDS SUMMARY | 2025-09-16 14:52 | XMS_ITS | Clinical Summary ---
Author Organization [facility] Address [address] [place] [address] Care Team Providers Care Chief Of Planning Name Role Phone Lety Trotter KE Primary [...] 01/15/2024 Assessment & Plan (01/20/2025 2:40 PM SINGLE SPINDLE SCREW MACHINE OPERATOR): The patient will continue with Provigil 200 mg p.o. Q a.m.. Assessment & Plan (01/15/2024 2:47 PM SINGLE SPINDLE SCREW MACHINE OPERATOR): The patient has hypersomnia not completely treated with CPAP for CHRISTO. She is trying to get a refill on her Provigil 200 mg p.o. q.a.m.. Hyponatremia 06/11/2023 Pain in both feet 05/18/2023 Morbid (severe) obesity due to excess calories 0 01/02/2023 Body mass index 40.0-44.9, adult ([facility]) 01/02 Personal history of tobacco use 01/02/2023 Assessment & Plan (01/20/2025 2:40 PM SINGLE SPINDLE SCREW MACHINE OPERATOR): I have ordered a low-dose screening CT scan for November 2025. The patient did stop smoking 2017 and August. Assessment & Plan (01/15/2024 2:47 PM SINGLE SPINDLE SCREW MACHINE OPERATOR): She quit smoking in 2017. She did smoke 1.5 packs of cigarettes per day for 40 years. I will order another screening chest CT for next November 2024 Assessment & Plan (01/02/2023 3:15 PM SINGLE SPINDLE SCREW MACHINE OPERATOR): I have ordered a lung cancer screening CT for December of 2023 Patient's smoking history is 1 and half packs of cigarettes per day for 40 years and quit in August 2018 BMI 40.0-44.9, adult 12/04/2022 Hyperlipidemia 05/06/2019 Prediabetes 06/27/2017 Obstructive sleep apnea syndrome 11/02/2016 Assessment & Plan (01/20/2025 2:39 PM SINGLE SPINDLE SCREW MACHINE OPERATOR): Patient continue to wear her CPAP at 17 cm water pressure while sleeping. Her DME is [facility]. Assessment & Plan (01/15/2024 2:47 PM SINGLE SPINDLE SCREW MACHINE OPERATOR): The patient continues to benefit from the auto titrating CPAP unit with a range of 7-10 cm water pressure for ongoing symptoms CHRISTO. Her DME supplier is [facility] in [place]. She will follow up here in 1 year. Assessment & Plan (01/02/2023 3:15 PM SINGLE SPINDLE SCREW MACHINE OPERATOR): Will continue CPAP at 17 cm water pressure. DME [facility] Assessment & Plan (01/03/2022 2:47 PM SINGLE SPINDLE SCREW MACHINE OPERATOR): The patient will continue with CPAP therapy at 17 cm water pressure. The patient denied need for supplies. DME company [facility]. The patient and I discussed [...] 01/03/202201/15 Assessment & Plan (01/02/2023 3:15 PM SINGLE SPINDLE SCREW MACHINE OPERATOR): Will continue Provigil 200 mg daily. I will refill for 1 year Assessment & Plan (01/03/2022 2:47 PM SINGLE SPINDLE SCREW MACHINE OPERATOR): The patient will continue with Provigil 200 [...] on file Legal Sex Female 8:14 PM SINGLE SPINDLE SCREW MACHINE OPERATOR Gender Identity Female 11/21/2022 4:52 PM SINGLE SPINDLE SCREW MACHINE OPERATOR Sexual Orientation Straight 11/21/2022 4: 52 PM SINGLE SPINDLE SCREW MACHINE OPERATOR Obstetrics History Last Filed Vital Signs Vital [...] Read Routine (OP Routine) 12/17/2024 3:57 PM SINGLE SPINDLE SCREW MACHINE OPERATOR Personal history of tobacco use from Last [...] age 39, based on guidelines of the [employer] (ACR Practice Parameter for the Performance of Screening and Diagnostic Mammography) and [employer]. For women [...] Willis MD - 05/04/2025 10:59 AM CDT [facility] GI ENDOSCOPY Patient Name: Maria Del Carmen Mccartney Procedure Date: 05/04/2025 10:59 AM Date of : 1955 Admit Type: Outpatient Age: 69 Gender: Female Attending MD: Issac Willis M.D. Room: [facility] ENDOSCOPY ROOM 03 Note Status: Finalized Procedure: [...] The scope was passed under direct vision.The [id number]-[id number] colonoscope was introduced through theanus and advanced [...] On: 05/04/2025 10:59 AM Recognized by the [employer] for promoting quality in endoscopy us Issac Willis MD ENDOSCOPY PROCEDURES Final Resul t * CT Lung Cancer Screening (12/17/2024 3:57 PM SINGLE SPINDLE SCREW MACHINE OPERATOR) Anatomical Region Laterality Modality Chest N/A Computed Tomogra phy 12/17/2024 9:32 PM SINGLE SPINDLE SCREW MACHINE OPERATOR Narrative 12/17/2024 9:36 PM SINGLE SPINDLE SCREW MACHINE OPERATOR EXAM DESCRIPTION: CT LUNG CANCER SCREENING REASON [...] Bibi Weiss M.D. FT: FT Report ID: [id number] Reading Location: [id number] Procedure Note Bibi Gayle MD - 12/17/2024 [...] Bibi Weiss M.D. FT: FT Report ID: [id number] Reading Location: [place] [address] Juvenal Shelby MD IMG CT PROCEDURES Final R esult from Last 3 Months or Most Recently Relevant to Health Maintenance Insurance [facility] [place] [id number] [facility] [place] [place] [address] [place] [id number] Care Teams Chief Of Planning Relationship Specialty Start Date End Date Lety Trotter NP [address] [address] PCP - General Family Medicine 11/17/24
--- OUTSIDE RECORDS SUMMARY | 2025-09-16 14:52 | XMS_ITS | Clinical Summary ---
Author Organization [facility] Address [address] [place] [address] Care Team Providers Care Visual Merchandising Assistant Name Role Phone Patricia Meléndez MD Primary Care Provider Social History Tobacco Use Types Packs/Day Years [...] age to complete this topic Care Teams Visual Merchandising Assistant Relationship Specialty Start Date End Date Patricia Meléndez MD PCP - General 06/29/15
--- OUTSIDE RECORDS SUMMARY | 2025-09-16 14:52 | XMS_ITS | Clinical Summary ---
Author Organization [facility] Address [address] [place] [address] Care Team Providers Care Catalyst Manufacturing Operator Name Role Phone Patricia Meléndez MD Primary Care Provider [phone] Source Comments [facility],non-owned Affiliates and Associated Physician Practices is amultiple site organization consisting of ambulatory clinics and hospital sitesin [place], [place], [place] and [place]. This disclosure is being madepursuant to the Care Everywhere program and may not contain all information available regarding this patient. Last updated 18.[facility] Active Problems Problem Noted Date Diagnosed Date [...] on file Legal Sex Female 6:21 PM CLINCHING MACHINE OPERATOR Gender Identity Not on file Sexual Orientation Not on file Last Filed Vital Signs Vital Sign Reading Time Taken Comments Blood Pressure 149/88 01/07/2015 3:29 PM CLINCHING MACHINE OPERATOR Pulse 97 01/07/2015 3:29 PM CLINCHING MACHINE OPERATOR Temperature 37.3 C (99.1 F) 01/07/2015 3:29 PM CLINCHING MACHINE OPERATOR Respiratory Rate 18 01/07/2015 3:29 PM CLINCHING MACHINE OPERATOR Oxygen Saturation - - Inhaled Oxygen Concentration - - Weight 115.7 kg (255 lb) 01/07/2015 3:29 PM CLINCHING MACHINE OPERATOR Height 167.6 cm (5' 6) 01/07/2015 3:29 PM CLINCHING MACHINE OPERATOR Body Mass Index 41.16 01/07/2015 3:29 PM CLINCHING MACHINE OPERATOR Plan of Treatment Health Maintenance Due [...] HEPATITIS C ANTIBODY Routine 11/05/2014 5:25 PM CLINCHING MACHINE OPERATOR from Last 3 Months or Most Recently Relevant to Health Maintenance Results * HEPATITIS C ANTIBODY (11/05/2014 5:25 PM CLINCHING MACHINE OPERATOR) Hepatitis [facility]ody [facility]: Hepatitis C Antibody screen indicates no serologic evidence of past or current infection with Hepatitis C Virus. Patients with unexplained liver disease who are immunocompromised or suspected of having acute Hepatitis C infection may benefit from Nucleic Acid Test (GRACE) for Hepatitis C Viral RNA to confirm Hepatitis C status. Blood specimen (specimen) BLOOD SPECIMEN / Unknown 11/05/2014 5:25 PM CLINCHING MACHINE OPERATOR 11/05/2014 6:39 PM CLINCHING MACHINE OPERATOR Colt Alexander MD LAB - CHEMISTRY ORDERABLES Migdalia mast Result [address] [phone] from Last 3 Months or Most Recently Relevant to Health Maintenance Insurance [employer] Care Teams Catalyst Manufacturing Operator Relationship Specialty Start Date End Date Patricia Meléndez MD [address] [address] PCP - General 11/05/14
--- OUTSIDE RECORDS SUMMARY | 2025-09-16 14:53 | XMS_ITS | Data Portability ---
Author Organization [facility] [place] [facility] Address [address] [place] [id number] Care Team Providers Care Direct Marketing Intern Name Role Phone BRIDGET SHELBY Technology Project Manager [phone] Assessment No assessment recorded. Plan of Treatment Reminders Order Date Submit Date Provider Last Modified By Organization Details Last Modified Time Details Appointments ANY 15 2024 02:30P M TANESHA Whaley Not available Not available Not available ANY 15 2025 02:30P M TANESHA Whaley Not available Not available Not available Lab BMP, serum or plasma 2024 025 [place] [facility], [address] [place] [address], [address], [place], [address], 08/20/2025 08:29:14 CBC 2024 025 [facility] (Lab), [address] [place] [address], [phone], 08/11/2025 14:42:24 CMP, serum or plasma 2024 025 [facility] (Lab), [address] [place] [address], [phone], 08/25/2025 13:19:54 HbA1c (hemoglob in A1c), blood 2024 025 [facility] (Lab), [address] [place] [address], [phone], 05/21/2025 10:28:20 CMP, serum or plasma 2024 025 [facility], [address], [address], [place], [address], 01/28/2025 08:22:52 CBC w/ auto diff 2024 025 [facility] [place], [address], [address], [place], [address], 01/28/2025 08:22:54 TSH + free T4, serum 2024 025 [facility], [address], [place], [address], 01/28/2025 08:22:51 lipid panel, serum 2024 025 [facility] (Lab), [address] [place] [address], [address], 05/21/2025 10:28:20 BMP, serum or plasma 2023 024 [facility], [address], [address], [place], [address], 01/02/2024 12:22:45 magnesium , serum or plasma 2023 024 [facility], [address], [address], [place], [address], 01/02/2024 12:22:45 Referral None recorded. Procedures None recorded. Surgeries None recorded. Imaging XR, lumbosacr al spine, 2 or 3 view 2024 025 [facility], [address] [place] [address], [address], 08/17/2025 18:38:35 US, screening for abdominal aortic aneurysm 2024 025 [facility], [address], [place], [address], 09/16/2025 14:35:55 Medication Orders bupropion HCl SR 200 mg tablet,12 hr sustained -release 2024 025 [facility] [address], [place], [address], 09/13/2025 20:12:14 bupropion HCl XL 150 mg 24 hr tablet, extended release 2024 025 [facility] [id number], [place], [address], 08/19/2025 15:36:23 prednison e 20 mg tablet 2023 024 [facility] [id number], [place], [address], 08/15/2024 15:21:24 Patient TargetsNo targets recorded. Patient Instructions Encounter Date Encounter Id Patient Instructions Last Modified By Organization Details Last Modified Time 01/01/2024 [id number] body mass index: care instructions [id number] Not available 01/01/2024 15:54:15 learning about healthy weight [email or web address] Not available 01/01/2024 15:54:16 tetanus and diphtheria booster: care instructions [email or web address] Not available 01/01/2024 15:54:16 Elliott, - Thank kaleb valencia for your visit - Continue your current medications - Your results will be available on the portal with any recommendations, or we will call you with them - Return to clinic in 6 months, AND as needed. - Call with any concerns Immunization recommendations: - Preventive immunization against shingles [...] obtaining an RSV immunization. For more information: https://www.cdc.g ov/vaccines/vpd/r sv/index.html Exercise recommendations: - It is recommended that [...] of green and leafy vegetables, including salads. [email or web address] Not available 01/01/2024 16:00:35 07/01/2024 [id number] body mass index: care instructions [id number] Not available 07/01/2024 16:22:40 learning about healthy weight [email or web address] Not available 07/01/2024 16:22:40 learning about high blood pressure Not available 07/01/2024 16:22:40 high cholesterol : care instructions [email or web address] Not available 07/01/2024 16:22:40 Elliott, - Thank [...] testing - Have your TSH drawn at [facility] in mid-July - Return to clinic in 6 months, AND as needed. - Call with any concerns Immunization recommendations: - Preventive immunization against shingles [...] obtaining an RSV immunization. For more information: https://www.cdc.g ov/vaccines/vpd/r sv/index.html Exercise recommendations: - It is recommended that [...] of green and leafy vegetables, including salads. [email or web address] Not available 07/01/2024 16:22:23 08/04/2025 [id number] advance care planning: care instructions jreuss Not available 08/04/2025 16:36:27 preventing falls : care instructions jreuss Not available 08/04/2025 16:36:28 Medicare Well[facility] Preventive Checklist jreuss Not available 08/04/2025 16:36:27 eating healthy foods: care instructions jreuss Not available 08/04/2025 16:36:28 AD8 Dementia Screening Interview jreuss Not available 08/04/2025 16:36:27 advance care planning: care instructions jreuss Not available 08/04/2025 16:36:27 preventing falls : care instructions jreuss Not available 08/04/2025 16:36:28 Medicare Wellnes s Preventive Checklist jreuss Not available 08/04/2025 16:36:28 eating healthy foods: care instructions jreuss Not available 08/04/2025 16:36:27 AD8 Dementia Screening Interview jrss Not available 08/04/2025 16:36:28 A healthy lifestyle: care instructions [facility] Not available 08/04/2025 16:36:27 Reason for Referral None Reported. Results Created Date Observation Date Name Description Value Unit Range Abnormal Flag Note LastModifiedBy Organization Detail LastModifiedTime 01/01/20 24 01/02/2024 MAGNE SIUM magnesium 2.0 mg/dL 1.5-2. 5 normal Not Available [address], [address], 01/02/2024 12:22:44 01/01/20 24 01/02/2024 BASIC METAB OLIC PANEL glucose 88 mg/dL 65-99 normal Fasti ng refer ence inter loyda Not Available [address], [address], 01/02/2024 12:22:45 01/01/20 24 01/02/2024 BASIC METAB OLIC PANEL urea nitrogen (BUN) 13 mg/dL 7-25 normal Not Available [address], [address], 01/02/2024 12:22:45 01/01/20 24 01/02/2024 BASIC METAB OLIC PANEL creatinine 0.89 mg/dL 0.50-1 .05 normal Not Available [address], [address], 01/02/2024 12:22:45 01/01/20 24 01/02/2024 BASIC METAB OLIC PANEL eGFR 70 mL/mi n/1.7 3m2 > or = 60 normal Not Available [address], [address], 01/02/2024 12:22:45 01/01/20 24 01/02/2024 BASIC METAB OLIC PANEL BUN/creatini ne ratio SEE NOTE: (calc ) 6-22 Not Repor christiane: BUN and Creat inine are withi n refer ence range . Not Available [address], [address], 01/02/2024 12:22:45 01/01/20 24 01/02/2024 BASIC METAB OLIC PANEL sodium 139 mmol/ L 135-14 6 normal Not Available [address], [address], 01/02/2024 12:22:45 01/01/20 24 01/02/2024 BASIC METAB OLIC PANEL potassium 3.8 mmol/ L 3.5-5. 3 normal Not Available [address], [address], 01/02/2024 12:22:45 01/01/20 24 01/02/2024 BASIC METAB OLIC PANEL chloride 101 mmol/ L 98-110 normal Not Available [address], [address], 01/02/2024 12:22:45 01/01/20 24 01/02/2024 BASIC METAB OLIC PANEL carbon dioxide 26 mmol/ L 20-32 normal Not Available [address], [address], 01/02/2024 12:22:45 01/01/20 24 01/02/2024 BASIC METAB OLIC PANEL calcium 9.5 mg/dL 8.6-10 .4 normal Not Available [facility] [address], [address], 01/02/2024 12:22:45 01/28/20 25 01/28/2025 TSH+F REE T4 TSH 7.840 uIU/m L 0.450- 4.500 above high normal Not Available [facility] ([facility]) [address] [facility], [place], [address], 01/28/2025 08:22:51 01/28/20 25 01/28/2025 TSH+F REE T4 T4,free(dire ct) 1.10 NG/dL 0.82-1 .77 Not Available [facility] ([facility]) [address] [place], [address], 01/28/2025 08:22:51 01/28/20 25 01/28/2025 COMP. METAB OLIC PANEL (14) glucose 97 mg/dL 70-99 Not Available [facility] ([facility]) [address] [place], [address], 01/28/2025 08:22:52 01/28/20 25 01/28/2025 COMP. METAB OLIC PANEL (14) BUN 13 mg/dL 8-27 Not Available [facility] ([facility]) [address] [place], [address], 01/28/2025 08:22:52 01/28/20 25 01/28/2025 COMP. METAB OLIC PANEL (14) creatinine 1.03 mg/dL 0.57-1 .00 above high normal Not Available [facility] ([facility]) [address] [place], [address], 01/28/2025 08:22:52 01/28/20 25 01/28/2025 COMP. METAB OLIC PANEL (14) eGFR 58 mL/mi n/1.7 3 >59 below low normal Not Available [facility] ([facility]) [address] [place], [address], 01/28/2025 08:22:52 01/28/20 25 01/28/2025 COMP. METAB OLIC PANEL (14) BUN/creatini ne ratio 13 12-28 Not Available [facility] ([facility]) [address] [place], [address], 01/28/2025 08:22:52 01/28/20 25 01/28/2025 COMP. METAB OLIC PANEL (14) sodium 139 mmol/ L 134-14 4 Not Available [facility] ([facility]) [address] [facility] [place], [address], 01/28/2025 08:22:52 01/28/20 25 01/28/2025 COMP. METAB OLIC PANEL (14) potassium 4.0 mmol/ L 3.5-5. 2 Not Available [facility] ([facility]) [address] [facility] [place], [address], 01/28/2025 08:22:52 01/28/20 25 01/28/2025 COMP. METAB OLIC PANEL (14) chloride 98 mmol/ L 96-106 Not Available [facility] ([facility]) [address] [facility], [place], [address], 01/28/2025 08:22:52 01/28/20 25 01/28/2025 COMP. METAB OLIC PANEL (14) carbon dioxide, total 23 mmol/ L 20-29 Not Available [facility] ([facility]) [address] [facility] [place], [address], 01/28/2025 08:22:52 01/28/20 25 01/28/2025 COMP. METAB OLIC PANEL (14) calcium 9.5 mg/dL 8.7-10 .3 Not Available [facility] ([facility]) [address] [facility] [place], [address], 01/28/2025 08:22:52 01/28/20 25 01/28/2025 COMP. METAB OLIC PANEL (14) protein, total 7.1 g/dL 6.0-8. 5 Not Available [facility] ([facility]) [address] [facility] [place], [address], 01/28/2025 08:22:52 01/28/20 25 01/28/2025 COMP. METAB OLIC PANEL (14) albumin 4.4 g/dL 3.9-4. 9 Not Available [facility] ([facility]) [address] [facility], [place], [address], 01/28/2025 08:22:52 01/28/20 25 01/28/2025 COMP. METAB OLIC PANEL (14) globulin, total 2.7 g/dL 1.5-4. 5 Not Available [facility] ([facility]) [address] [facility] [place], [address], 01/28/2025 08:22:52 01/28/20 25 01/28/2025 COMP. METAB OLIC PANEL (14) bilirubin, total 0.4 mg/dL 0.0-1. 2 Not Available [facility] ([facility]) [address] [place], [address], 01/28/2025 08:22:52 01/28/20 25 01/28/2025 COMP. METAB OLIC PANEL (14) alkaline phosphatase 115 IU/L 44-121 Not Available [facility]) [address] [facility], [place], [address], 01/28/2025 08:22:52 01/28/20 25 01/28/2025 COMP. METAB OLIC PANEL (14) AST (SGOT) 29 IU/L 0-40 Not Available [facility] ([facility]) [address] [place], [address], 01/28/2025 08:22:52 01/28/20 25 01/28/2025 COMP. METAB OLIC PANEL (14) ALT (SGPT) 31 IU/L 0-32 Not Available [facility] ([facility]) [address] [place], [address], 01/28/2025 08:22:52 01/28/20 25 01/28/2025 CBC WITH DIFFE RENTI AL/PL ATELE T WBC 8.0 x10e3 /uL 3.4-10 .8 Not Available [facility] ([facility]) [address] [place], [address], 01/28/2025 08:22:53 01/28/20 25 01/28/2025 CBC WITH DIFFE RENTI AL/PL ATELE T RBC 4.25 x10e6 /uL 3.77-5 .28 Not Available [facility] ([facility]) [address] [place], [address], 01/28/2025 08:22:53 01/28/20 25 01/28/2025 CBC WITH DIFFE RENTI AL/PL ATELE T hemoglobin 13.1 g/dL 11.1-1 5.9 Not Available [facility] ([facility]) [address] [place], [address], 01/28/2025 08:22:53 01/28/20 25 01/28/2025 CBC WITH DIFFE RENTI AL/PL ATELE T hematocrit 39.5 % 34.0-4 6.6 Not Available [facility] ([facility]) [address] [place], [address], 01/28/2025 08:22:53 01/28/2001/28/2025 CBC WITH DIFFE RENTI AL/PL ATELE T MCV 93 fL 79-97 Not Available [facility] ([facility]) [address] [place], [address], 01/28/2025 08:22:53 01/28/20 25 01/28/2025 CBC WITH DIFFE RENTI AL/PL ATELE T MCH 30.8 pg 26.6-3 3.0 Not Available [facility] ([facility]) [address] [place], [address], 01/28/2025 08:22:53 01/28/20 25 01/28/2025 CBC WITH DIFFE RENTI AL/PL ATELE T MCHC 33.2 g/dL 31.5-3 5.7 Not Available [facility] ([facility]) [address] [place], [address], 01/28/2025 08:22:53 01/28/20 25 01/28/2025 CBC WITH DIFFE RENTI AL/PL ATELE T RDW 13.6 % 11.7-1 5.4 Not Available [facility] ([facility]) [address] [facility], [place], [address], 01/28/2025 08:22:53 01/28/20 25 01/28/2025 CBC WITH DIFFE RENTI AL/PL ATELE T platelets 260 x10e3 /uL 150-45 0 Not Available [facility] ([facility]) [address] [facility], [place], [address], 01/28/2025 08:22:53 01/28/20 25 01/28/2025 CBC WITH DIFFE RENTI AL/PL ATELE T neutrophils 70 % notest ab. Not Available [facility] ([facility]) [address] [facility], [place], [address], 01/28/2025 08:22:53 01/28/20 25 01/28/2025 CBC WITH DIFFE RENTI AL/PL ATELE T lymphs 21 % notest ab. Not Available [facility] ([facility]) [address] [facility], [place], [address], 01/28/2025 08:22:53 01/28/20 25 01/28/2025 CBC WITH DIFFE RENTI AL/PL ATELE T monocytes 6 % notest ab. Not Available [facility] ([facility]) [address] [facility], [place], [address], 01/28/2025 08:22:53 01/28/20 25 01/28/2025 CBC WITH DIFFE RENTI AL/PL ATELE T eos 2 % notest ab. Not Available [facility] ([facility]) [address] [facility], [place], [address], 01/28/2025 08:22:53 01/28/20 25 01/28/2025 CBC WITH DIFFE RENTI AL/PL ATELE T basos 1 % notest ab. Not Available [facility] ([facility]) [address] [place], [address], 01/28/2025 08:22:53 01/28/20 25 01/28/2025 CBC WITH DIFFE RENTI AL/PL ATELE T neutrophils (absolute) 5.6 x10e3 /uL 1.4-7. 0 Not Available [facility] ([facility]) [address] [place], [address], 01/28/2025 08:22:53 01/28/20 25 01/28/2025 CBC WITH DIFFE RENTI AL/PL ATELE T lymphs (absolute) 1.7 x10e3 /uL 0.7-3. 1 Not Available [facility] ([facility]) [address] [place], [address], 01/28/2025 08:22:53 01/28/20 25 01/28/2025 CBC WITH DIFFE RENTI AL/PL ATELE T monocytes(ab solute) 0.5 x10e3 /uL 0.1-0. 9 Not Available [facility] ([facility]) [address] [place], [address], 01/28/2025 08:22:53 01/28/20 25 01/28/2025 CBC WITH DIFFE RENTI AL/PL ATELE T eos (absolute) 0.1 x10e3 /uL 0.0-0. 4 Not Available [facility] ([facility]) [address] [place], [address], 01/28/2025 08:22:53 01/28/20 25 01/28/2025 CBC WITH DIFFE RENTI AL/PL ATELE T baso (absolute) 0.1 x10e3 /uL 0.0-0. 2 Not Available [facility] ([facility]) [address] [place], [address], 01/28/2025 08:22:53 01/28/2001/28/2025 CBC WITH DIFFE RENTI AL/PL ATELE T immature granulocytes 0 % notest ab. Not Available [facility] ([facility]) [address] [facility], [place], [address], 01/28/2025 08:22:53 01/28/2001/28/2025 CBC WITH DIFFE RENTI AL/PL ATELE T immature grans (abs) 0.0 x10e3 /uL 0.0-0. 1 Not Available [facility] ([facility]) [address] [facility], [place], [address], 01/28/2025 08:22:53 08/19/2008/20/2025 BMP7+ EGFR glucose 108 mg/dL 70-99 above high normal Not Available [facility] ([facility]) [address] [facility], [place], [address], 08/20/2025 08:29:14 08/19/2008/20/2025 BMP7+ EGFR BUN 11 mg/dL 8-27 Not Available [facility] ([facility]) [address] [facility], [place], [address], 08/20/2025 08:29:14 08/19/2008/20/2025 BMP7+ EGFR creatinine 0.99 mg/dL 0.57-1 .00 Not Available [facility] ([facility]) [address] [facility], [place], [address], 08/20/2025 08:29:14 08/19/2008/20/2025 BMP7+ EGFR eGFR 61 mL/mi n/1.7 3 >59 Not Available [facility] ([facility]) [address] [facility], [place], [address], 08/20/2025 08:29:14 09/2408/20/2025 BMP7+ EGFR sodium 135 mmol/ L 134-14 4 Not Available [facility] ([facility]) [address] [facility], [place], [address], 08/20/2025 08:29:14 08/19/2008/20/2025 BMP7+ EGFR potassium 4.2 mmol/ L 3.5-5. 2 Not Available [facility] ([facility]) [address] [facility], [place], [address], 08/20/2025 08:29:14 08/19/2008/20/2025 BMP7+ EGFR chloride 97 mmol/ L 96-106 Not Available [facility] ([facility]) [address] [facility], [place], [address], 08/20/2025 08:29:14 08/19/2008/20/2025 BMP7+ EGFR carbon dioxide, total 24 mmol/ L 20-29 Not Available [facility] ([facility]) [address] [facility], [place], [address], 08/20/2025 08:29:14 05/11/2005/11/2025 MAMMO , scree karina, tomos ynthe sis, bilat eral No observ ation record ed. [facility] [address], [address], 08/04/2025 16:22:11 08/17/2008/10/2025 XR, lumbo sacra l spine , 2 or 3 view No observ ation record ed. [facility] [address], [place], [address], 08/18/2025 17:50:54 08/19/20 25 12/17/2024 LDCT, chest , for lung cance r scree karina No observ ation record ed. [facility] Not Available 2024 16:32:02 Result Notes None recorded. Problems Name Problem SNOMED Code Status Onset Date Resolution Date Notes Provider Name and Address Organization Details Recorded Time [place] al symptom 87579778 Completed 201107/21/2012 Location : None;Sev erity: Moderate ;Progres s: Stable;A dded By: Patricia Meléndez;Add to Current Problems : NO Not Available [facility] 7 09:35:44 Mineral deficien cy 396201317 Active 2011 Not Available [facility] 3 12:40:34 Single major depressi ve episode, moderate Active 2011 Not Available [facility] 3 12:40:34 Infectiv e otitis externa [id number] Completed 201206/16/2013 Location : None;Sev erity: Moderate ;Progres s: Stable;A dded By: Patricia Meléndez;Add to Current Problems : NO Not Available [facility] 7 09:35:45 Dyspnea 583561730 Completed 201207/20/2013 Location : None;Sev erity: Moderate ;Progres s: Stable;A dded By: Claritza Smith; Add to Current Problems : NO Not Available [facility] 7 09:35:45 History of fall [id number] Completed 201206/11/2023 Jas Perez MD Attn: Accounting ,[address] [place], [address] , [facility] 3 16:43:46 Contusio n of chest [id number] Completed 201207/20/2013 Location : None;Sev erity: Moderate ;Progres s: Stable;A dded By: Patricia Meléndez;Add to Current Problems : NO Not Available [facility] 7 09:35:46 Acute upper respirat ory infectio n of multiple sites Completed 201211/16/2013 Location : None;Sev erity: Moderate ;Progres s: Stable;A dded By: Claritza Smith; Add to Current Problems : NO Not Available [facility] 7 09:35:45 Generali zed anxiety disorder [id number] Completed 201208/17/2021 Location : None;Sev erity: Moderate ;Progres s: Stable;A dded By: Yaquelin Campbell;Add to Current Problems : YES Patricia Meléndez [place], [place] - [place] 15:52:07 Transien t insomnia 156171509 Completed 201211/30/2013 Location : None;Sev erity: Moderate ;Progres s: Stable;A dded By: Patricia Meléndez;Add to Current Problems : NO Not Available [facility] 7 09:35:46 Acute sinusiti s 93959891 Completed 201211/30/2013 Location : None;Sev erity: Moderate ;Progres s: Stable;A dded By: Patricia Meléndez;Add to Current Problems : NO Not Available [facility] 7 09:35:46 Transien t insomnia [id number] Completed 201302/28/2014 Location : None;Sev erity: Moderate ;Progres s: Stable;A dded By: Alesha Alcaraz;Add to Current Problems : NO Not Available [facility] 7 09:35:45 Open wound of finger [id number] Completed 201302/28/2014 Location : None;Sev erity: Moderate ;Progres s: Stable;A dded By: Alesha Alcaraz;Add to Current Problems : NO Not Available [facility] 7 09:35:45 Contact dermatit is [id number] Completed 201306/27/2014 Location : None;Sev erity: Moderate ;Progres s: Stable;A dded By: Beronica Juárez;Add to Current Problems : NO Not Available [facility] 7 09:35:44 Eruption [id number] Completed 201306/27/2014 Location : None;Sev erity: Moderate ;Progres s: Stable;A dded By: Karolina Neely;Add to Current Problems : NO Not Available [facility] 7 09:35:44 Acute sinusiti s [id number] Completed 201307/23/2014 Location : None;Sev erity: Moderate ;Progres s: Stable;A dded By: Alesha Alcaraz;Add to Current Problems : NO Not Available [facility] 7 09:35:44 Hepatome doris [id number] Completed 201310/11/2014 Location : None;Sev erity: Moderate ;Progres s: Stable;A dded By: Kyra Adler;Add to Current Problems : YES Not Available [facility] 7 09:36:29 IgE-medi ated allergic asthma 872499917 Active 2014 Not Available [facility] 3 12:40:35 Nausea and vomiting [id number] Completed 201406/19/2015 Location : None;Sev erity: Moderate ;Progres s: Stable;A dded By: Sylvia Burgess;Add to Current Problems : YES Not Available [facility] 7 09:35:45 Nausea [id number] Completed 201407/26/2015 Location : None;Sev erity: Moderate ;Progres s: Stable;A dded By: Sylvia Burgess;Add to Current Problems : NO Not Available [facility] 7 09:35:45 Acute sinusiti s [id number] Completed 201407/26/2015 Location : None;Sev erity: Moderate ;Progres s: Stable;A dded By: Sylvia Burgess;Add to Current Problems : YES Not Available [facility] 7 09:35:45 Tobacco dependen ce syndrome [id number] Completed 201407/26/2015 Location : None;Sev erity: Moderate ;Progres s: Stable;A dded By: Sylvia Burgess;Add to Current Problems : YES Not Available [facility] 7 09:35:45 Edema [id number] Completed 201410/02/2015 Location : None;Sev erity: Moderate ;Progres s: Stable;A dded By: Janna Mckay;Ad d to Current Problems : NO Not Available [facility] 7 09:36:28 Elevated blood-pr essure reading without diagnosi s of hyperten gerardo [id number] Completed 201410/02/2015 Location : None;Sev erity: Moderate ;Progres s: Stable;A dded By: Diane Mckay d to Current Problems : NO Not Available [facility] 7 09:36:28 Acute maxillar y sinusiti s [id number] Completed 201410/03/2015 Location : None;Sev erity: Moderate ;Progres s: Stable;A dded By: Patricia Meléndez;Add to Current Problems : YES Not Available [facility] 7 09:35:46 Neoplasm of uncertai n behavior of skin [id number] Completed 201503/04/2016 Location : None;Sev erity: Moderate ;Progres s: Stable;A dded By: Claritza Smith; Add to Current Problems : YES Not Available [facility] 7 09:35:45 Senile hyperker atosis 913489992 Completed 201506/11/2023 Jas Perez MD Attn: Accounting ,[address] [place], [address] , [facility] 3 16:43:12 Verruca vulgaris 16013929 Active 2015 Not Available [facility] 3 12:40:35 Acute sinusiti s 09305978 Completed 201504/15/2016 Location : None;Sev erity: Moderate ;Progres s: Stable;A dded By: Yaquelin Campbell;Add to Current Problems : YES Not Available [facility] 7 09:35:45 Acute bronchit is [id number] Completed 201505/14/2016 Location : None;Sev erity: Moderate ;Progres s: Stable;A dded By: Sylvia Burgess;Add to Current Problems : YES Not Available [facility] 7 09:35:45 Impacted cerumen 56489825 Completed 201505/14/2016 Location : None;Sev erity: Moderate ;Progres s: Stable;A dded By: Sylvia Burgess;Add to Current Problems : YES Not Available [facility] 7 09:35:45 [facility] hyperten gerardo 96395927 Active 2015 Not Available [facility] 3 12:40:35 Hypothyr oidism 23329005 Active 2015 Not Available [facility] 3 12:40:35 Prediabe mallika 175200609 Active 2016 Not Available [facility] 3 12:40:35 Hyperlip idemia 29161713 Active 2018 Not Available [facility] 3 12:40:35 Mixed anxiety and depressi ve disorder 959513761 Active 2020 Not Available [facility] 3 12:40:34 Long-ter m drug therapy Active 2022 Not Available [facility] 3 12:40:35 Body mass index 40+ - severely obese 994551568 Active 2022 Not Available [facility] 3 12:40:35 Menopaus e present 397227689 Completed 202206/11/2023 Jas Perez MD Attn: Accounting ,[address] [place], [address] , [facility] 3 16:43:28 Pain in bilatera l feet 79646053986 316974 Active 2022 Not Available [facility] 3 12:40:34 Hyponatr emia 35202753 Active 2022 Not Available [facility] 3 12:40:35 Persiste nt insomnia 153563388 Active 2022 Not Available [facility] 3 12:40:34 Pain of right shoulder joint 16609353551 026024 Active 2023 Jas Perez MD Attn: Accounting ,[address] [place], [address] , [facility] 4 16:23:02 Problem Notes None recorded. Medical Equipment None Reported. Allergies Allergen ID Allergen Name Allergen Category Reaction Reaction Severity Criticality Documentation Date Start Date Code Code System Note Provider Name and Address Organization Details Recorded Time 521262 Prevalite medicatio n Not available Not available Not available 10/18/2021 77687 7 RxNorm const ipati on Patricia wren, [place] 16:13:53 Medications Name Sig Start Date Stop Date Status Note LastModified by Organization Details LastModified Time bupropion HCl SR 150 mg tablet,12 hr sustained-r elease Take 1 tablet(s) by mouth daily x 3days then one PO BID 10/18 completed Not Available Not Available Not Available citalopram 40 mg tablet Take 1 tablet(s) by mouth daily 01/15 completed RxNor m: 48932 4;All ow Subst ituti on: True Not [...] TAKE 1 TABLET BY MOUTH EVERY DAY AT BEDTIME 2024 active Not Available Not Available Not Avai lable hydrochloro thiazide 50 mg tablet TAKE 1 TABLET BY MOUTH EVERY DAY active Not Available Not Available No t Available hydrocodone 5 mg-acetamin ophen 325 mg tablet 02/19 completed Not Available Not Available Not Available meloxicam 15 mg tablet TAKE 1 TABLET (15 MG TOTAL) BY MOUTH DAILY. active Not Available Not Available No t Available promethazin e 12.5 mg tablet Take 1 tablet(s) by mouth q 4 to 6 hr 07/18 completed RxNor m: 15385 8;All ow Subst ituti on: True Not [...] next 4 days. 07/06 completed RxNor m: 40367 6;All ow Subst ituti on: True Not Available Not Available Not Available metronidazo le 500 mg tablet 02/19 completed Not Available Not Available Not Available Provigil 100 mg tablet Take one tablet PO daily 11/14 completed RxNor m: 59030 6;All ow Subst ituti on: True Not [...] 1 po daily 06/04 completed RxNor m: 77985 1;All ow Subst ituti on: True Not Available Not Available Not Available amitriptyli ne 25 mg tablet Take 1 tablet(s) by mouth at bedtime 08/26 completed RxNor m: 26287 4;All ow Subst ituti on: True Not Available Not Available Not Available modafinil 200 mg tablet TAKE 1 TABLET BY MOUTH EVERY DAY active Not Available Not Available No t Available trazodone 100 mg tablet TAKE 1 TABLET BY MOUTH EVERYDAY AT BEDTIME active Not Available Not Available No t Available cephalexin 500 mg capsule one PO TID for 2 weeks 10/20 completed Not Available Not Available Not Available levothyroxi ne 125 mcg tablet TAKE 1 TABLET BY MOUTH EVERY DAY active Not Available Not Available No t Available Synthroid 50 mcg tablet Take 1 tablet(s) by mouth daily 08/04 completed RxNor m: 74033 7;All ow Subst ituti on: True Not [...] 6 hr prn 09/17 completed RxNor m: 89748 3;All ow Subst ituti on: True Not Available Not Available Not Available hydrochloro thiazide 25 mg tablet take one po daily 01/29 completed Not Available Not Available Not Available Wellbutrin 100 mg tablet take 1 1/2 tab bid 10/30 completed RxNor m: 24028 8;All ow Subst ituti on: True Not [...] bid as needed 09/17 completed RxNor m: 40150 4;All ow Subst ituti on: True Not Available Not Available Not Available levothyroxi ne 112 mcg tablet PLEASE SEE ATTACHED FOR DETAILED DIRECTION S 07/12 completed Not Available Not Available Not Available amoxicillin 875 mg-potassiu m clavulanate 125 mg tablet TAKE 1 TABLET BY MOUTH EVERY 12 HOURS FOR 7 DAYS 06/22 completed Not Available Not Available Not Available neomycin-po lymyxin-hyd rocort 3.5 mg-10,000 unit/mL-1 % ear drops,susp 11/09 completed Not Available Not Available Not Available bupropion HCl SR 200 mg tablet,12 hr sustained-r elease TAKE 1 TABLET BY MOUTH EVERY DAY FOR 30 DAYS 2024 active Not Available Not Available Not Avai lable Ciprodex 0.3 %-0.1 % ear drops,suspe nsion 08/01 completed Not Available Not Available Not Available cholestyram ine-asparta me 4 gram oral powder for susp in a packet Take 1 packet every day by oral route. 2020 active Not Available Not Available Not Avai lable bupropion HCl XL 300 mg 24 hr tablet, extended release TAKE 1 TABLET BY MOUTH EVERY DAY IN THE MORNING 08/19 completed Not Available Not Available Not Available bupropion HCl XL 150 mg 24 hr tablet, extended release TAKE 1 TABLET BY MOUTH EVERY MORNING WITH 300 MG TAB. TO EQUAL 450 MG DAILY. 08/19 completed Not Available Not Available Not Available ProAir HFA 90 mcg/actuati on aerosol inhaler Inhale 2 puffs every 4-6 hours by inhalatio n route as needed. 02/19 completed Not Available Not Available Not Available Nuvigil 150 mg tablet Take 1 tablet(s) by mouth qam 05/16 completed RxNor m: 59381 9;All ow Subst ituti on: True Not [...] Available Not Available Not Available Fluad Quad [id number](6 5yr up)(PF) 60 mcg (15 mcg x 4)/0.5mL IM syringe 12/02 completed Not Available Not Available Not Available Vitals Date Recorded Body height Body mass index (BMI) Body weight Body temperature Oxygen saturation Oxygen saturation in Arterial blood by Pulse oximetry Heart rate Systolic And Diastolic Provider Name and Address Organization Details Last Updated DateTime 4 167.64 cm 44 kg/m2 858104. 22 g 98.2 [degF] 95 % 95 % 78 /min 125/78 mm[Hg] Marty Fox MA [place] - [facility] 4 15:03:02 Date Recorded Body height Body mass index (BMI) Body weight Oxygen saturation Oxygen saturation in Arterial blood by Pulse oximetry Body temperature Heart rate Systolic And Diastolic Provider Name and Address Organization Details Last Updated DateTime 5 167.64 cm 43.4 kg/m2 835231. 05 g 93 % 93 % 97.2 [degF] 79 /min 107/69 mm[Hg] Durga Garduno MA [facility] 5 15:16:22 Date Recorded Body height Body mass index (BMI) Body weight Oxygen saturation Oxygen saturation in Arterial blood by Pulse oximetry Heart rate Body temperature Systolic And Diastolic Provider Name and Address Organization Details Last Updated DateTime 4 167.64 cm 43.3 kg/m2 798214. 76 g 93 % 93 % 83 /min 98 [degF] 135/78 mm[Hg] Juli Davis MA [facility] 4 15:23:57 Date Recorded Systolic And Diastolic Provider Name and Address Organization Details Last Updated DateTime 08/04/2025 116/68 mm[Hg] TANESHA Whaley Attn: Accounting,[address] [place], [address], [facility] 08/04/2025 16:40:34 Date Recorded Body height Body mass index (BMI) Body weight Oxygen saturation Oxygen saturation in Arterial blood by Pulse oximetry Heart rate Body temperature Systolic And Diastolic Provider Name and Address Organization Details Last Updated DateTime 5 167.64 cm 41.5 kg/m2 831906. 24 g 94 % 94 % 84 /min 98.2 [degF] 142/75 mm[Hg] Kay Aguilar MA [facility] 5 16:16:03 Date Recorded Body height Body mass index (BMI) Body weight Oxygen saturation Oxygen saturation in Arterial blood by Pulse oximetry Heart rate Body temperature Systolic And Diastolic Provider Name and Address Organization Details Last Updated DateTime 5 167.64 cm 42.4 kg/m2 254041. 79 g 95 % 95 % 88 /min 97.7 [degF] 110/68 mm[Hg] Kay Aguilar MA [facility] 5 15:16:59 Social History Question Answer Notes LastModified by Organizat ion Details LastModified Time Tobacco Smoking Status Former Smoker quit 2017 Jas Perez MD Attn: [employer] , [place], [address], [place] [facility] 06/11/2023 17:03:05 Do You Have An Advance [...] Date Of Your Most Recent Tobacco Screening? 08/19/2025 Information not available 08/19/2025 What Is Your Current Pack Years? 20-29packyea rs [id number] Information not available 06/11/2023 What Is Your Relationship Status? Information not available 08/17/2021 Do You Use Your Seat Belt Or Car Seat Routinely? Yes Information not available 08/17/2021 Do You Have Smoke And Carbon Monoxide Detectors In Your Home? Yes Information not available 08/17/2021 Are You Passively Exposed To Smoke? No Information not available 08/17/2021 How Much Tobacco Do You Smoke? No apricema Information not available 07/01/2024 Has Tobacco Cessation [...] 08/17/2021 Are you able to care for yourself independently? Yes Information not available 08/17/2021 Do you or have you ever used e-cigarettes or vape? Never used electronic cigarettes Information not available 11/09/2020 What is your exercise level? None Information not available 08/17/2021 Mental Status Question Answer Note LastModified by Organization D etails LastModified Time Do you feel stressed (tense, restless, nervous, or anxious, or unable to sleep at night)? [id number] Information not available 08/17/2021 Family History Relationship [...] null, [place] [facility] 08/29/2024 13:57:13 Influenza, adjuvanted, quadrivalent, PF 0 completed Not Available [facility] 08/19/2025 15:10:36 Influenza, split virus, quadrivalent, preservative 9 completed Not Available [facility] 12/13/2019 02:38:46 Influenza, split virus, quadrivalent, preservative 1 completed Kenia Sousa [place], [place] [facility] 08/17/2021 17:08:35 Tdap 4 completed Claritza wren, [place] [facility] 11/02/2016 11:51:40 pneumococcal polysaccharide PPV23 1 completed Claritza Sandra [place], [place] [facility] 11/02/2016 11:51:53 Pneumococcal conjugate PCV20, polysaccharide PBF771 conjugate, adjuvant, PF 3 completed Jas Perez MD Attn: Accounting,[address] [facility], [place], [address], [facility] 12/12/2022 09:45:55 Tdap 9 completed Not Available [facility] 11/29/2016 06:02:34 Tdap 4 completed Marty Fox [place], [place] [facility] 01/01/2024 17:06:47 Past Encounters Encounter ID Performer Location Encounter Start Date Encounter Closed Date Diagnosis/Indication Diagnosis SNOMED-CT Code Diagnosis ICD10 Code Diagnosis IMO Codes Diagnosis Note [id number] Patricia Meléndez MD [facility] [address] [place] [address] 11/02/2016 11:41:26 11/03/2016 15:16:37 Mixed anxiety and depressive disorder 324893306 F41.8 [id number] Patricia Meléndez MD [facility] [address] [place] [address] 01/15/2017 17:01:40 01/16/2017 12:30:34 Single major depressive episode, moderate 098350019 F32.1 Acute maxi llary sinusitis 64350043 J01.00 Essential hypertension 88846702 I10 Hypothyroidism 93123756 E03.9 [id number] Patricia Meléndez MD [facility] [address] [place] [address] 06/14/2017 15:28:43 06/14/2017 17:46:40 Essential hypertension 48446405 I10 Mixed anxi ety and depressive disorder 594864207 F41.8 Fatigue 21076558 R53.83 TSH lipid , BMP Acute maxi llary sinusitis 61217907 J01.00 [id number] Patricia Meléndez MD [facility] [address] [place] [address] 06/21/2017 11:15:27 06/21/2017 16:27:38 Hypothyroidism 21498823 E03.9 Essential hypertension 52445786 I10 [id number] Patricia Meléndez MD [facility] [address] [place] [address] 06/26/2017 09:21:20 06/26/2017 13:09:08 Glucose level outside reference range 413768846 R73.09 [id number] Patricia Meléndez MD [facility] [address] [place] [address] 07/19/2017 16:37:00 07/19/2017 17:38:02 Essential hypertension 08649747 I10 Single marleni or depressive episode, moderate 384342393 F32.1 Acute maxi llary sinusitis 68685772 J01.00 if patient calls back get Ct sinuses Nausea 833001574 R11.0 [id number] Patricia Meléndez MD [facility] [address] [place] [address] 01/29/2018 16:28:21 01/29/2018 17:23:23 Essential hypertension 76419530 I10 I gave written order to patient for lipid, BMP, AST, and TSH Single marleni or depressive episode, moderate 394975710 F32.1 Hypothyroidism 26469793 E03.9 doing well with med and attributes some weight loss to this Intentiona l weight loss 122581876 R63.8 lost 7 pounds [id number] Patricia Meléndez MD [facility] [address] [place] [address] 02/04/2018 09:44:52 02/04/2018 16:43:10 Hypothyroidism 84462252 E03.9 Essential hypertension 95761512 I10 Prediabetes 789813552 R7 3.03 [id number] Patricia Meléndez MD [facility] [address] [place] [address] 08/01/2018 16:15:34 08/02/2018 11:38:46 Prediabetes 519320077 R73.03 I gave written order Essential hypertension 29378026 I10 Acute maxi llary sinusitis 88836313 J01.00 Persistent cough 4807244 02 R05 [id number] Patricia Meléndez MD [facility] [address] [place] [address] 10/31/2018 12:16:12 11/01/2018 11:22:23 Acute maxillary sinusitis 59262731 J01.00 Mixed hyperlipidemia 267 002123 E78.2 Fatigue 42500728 R53.83 I ordered lipid BMp and TSH [id number] Patricia Meléndez MD [facility] [address] [place] [address] 02/19/2019 15:28:38 02/20/2019 09:06:00 Essential hypertension 60054927 I10 Prediabetes 511718814 R7 3.03 Hypothyroidism 42740676 E03.9 Allergic r hinitis caused by pollen 49611087 J30.1 Single marleni or depressive episode, moderate 947787253 F32.1 Body mass index 40+ - severely obese 191769815 Z68.41 Normal grief reaction 27 3680290 F43.20 [id number] Patricia Meléndez MD [facility] [address] [place] [address] 05/07/2019 15:48:25 05/07/2019 17:20:41 Generalized anxiety disorder 81717965 F41.1 Essential hypertension 13627049 I10 Single marleni or depressive episode, moderate 757488336 F32.1 Normal grief reaction 27 1211703 F43.20 [id number] Patricia Meléndez MD [facility] [address] [place] [address] 06/19/2019 14:20:09 06/19/2019 16:19:56 Tinea pedis 0083366 B35.3 Foot pain 95239890 M79.6 71 M79.890 [id number] Patricia Meléndez MD [facility] [address] [place] [address] 10/20/2019 10:25:58 10/20/2019 14:05:35 Hyperlipidemia 85504190 E78.5 Generalize d anxiety disorder 78975792 F41.1 Essential hypertension 72131430 I10 Administra tion of influenza vaccine 58414670 Z23 Prediabetes 985481219 R7 3.03 [id number] Patricia Meléndez MD [facility] [address] [place] [address] 04/29/2020 15:00:44 04/29/2020 16:57:36 Hypothyroidism 11718312 E03.9 Single marleni or depressive episode, moderate 995867293 F32.1 Hyperlipidemia 17307736 E78.5 Essential hypertension 13197746 I10 [id number] Patricia Meléndez MD [facility] [address] [place] [address] 05/25/2020 13:41:56 05/25/2020 16:40:05 Change in skin lesion 875986017 L98.9 Lesion of face 890119372 L98.9 [id number] Patricia Meléndez MD [facility] [address] [place] [address] 11/09/2020 12:46:18 2020 14:49:42 Single major depressive episode, moderate 641948942 F32.1 Hyperlipidemia 19910093 E78.5 Generalize d anxiety disorder 71835553 F41.1 Essential hypertension 94010024 I10 Hypothyroidism 87055846 E03.9 Prediabetes 198529292 R7 3.03 [id number] Patricia Meléndez MD [facility] [address] [place] [address] 05/03/2021 13:13:57 05/04/2021 14:50:03 Essential hypertension 99582291 I10 Hypothyroidism 21169685 E03.9 Single marleni or depressive episode, moderate 999651911 F32.1 Hyperlipidemia 94514369 E78.5 Body mass index 40+ - severely obese 275524511 Z68.41 [id number] Patricia Meléndez MD [facility] [address] [place] [address] 08/17/2021 15:06:23 08/17/2021 16:46:54 Hyperlipidemia 72576731 E78.5 Essential hypertension 56188541 I10 Hypothyroidism 28084625 E03.9 Mixed anxi ety and depressive disorder 734437789 F41.8 Administra tion of influenza vaccine 52336289 Z23 Chronic diarrhea 2746657 09 K52.9 not due for colonoscop y until 08/2024 [id number] Patricia Meléndez MD [facility] [address] [place] [address] 10/18/2021 13:14:15 10/19/2021 09:43:05 Mixed anxiety and depressive disorder 944954691 F41.8 Chronic diarrhea 1312626 09 K52.9 not due for colonoscop y until 08/2024 - resolved with prevalite then metamucil [id number] Patricia Meléndez MD [facility] [address] [place] [address] 06/05/2022 14:33:36 06/05/2022 16:32:41 Mixed anxiety and depressive disorder 170561733 F41.8 Single marleni or depressive episode, moderate 809705836 F32.1 Essential hypertension 70669543 I10 Hyperlipidemia 91850605 E78.5 Hypothyroidism 27751762 E03.9 Obstructiv e sleep apnea syndrome 85341952 G47.33 Prediabetes 973532641 R7 3.03 Family his tory of cancer of colon 005925437 Z80.0 SISTER HAS RECTAL CANCER [id number] Jas Perez MD [facility] [address] [place] [address] 12/05/2022 15:43:57 12/12/2022 12:10:18 Essential hypertension 51182085 I10 # HTN - Controlled - Continue current medication s. No change in management - Encouraged routine blood pressure checksat home, targetless than 140/90 - DiscussedD EDISON diet(https ://www.nhl bi.nih.gov /files/doc s/public/h eart/dash_ brief.pdf) anddietary sodium restrictio ns - Continue/I ncrease dietary efforts and physical activity Hyperlipidemia 48684199 E78.5 # Hyperlipid emia- Last lipid panel < 1 year ago- ACC/AHA CV risk < 7.5%- Repeat prior to next visit- Continue with current management without changes.- Focus on a dietlow in saturated fats(https ://www.[facility].or g/educatio n/guidelin es-for-a-l ow-cholest donta-low-s aturated-f at-diet),b lood pressure control,sm oking cessation( http://owen tyes.org/) anddaily exerciseto reduce your risk ofheart disease and stroke. Mixed anxi ety and depressive disorder 556525685 F41.8 # Anxiety / Depression RAFAEL-7 score: 0. none (0-4)PHQ9 score: 6. mild (5-9), recurrent. StableCont inue meds. Hypothyroidism 83501774 E03.9 # Hypothyroi dismCheck thyroid stimulatin g hormone and adjust medication as indicated IgE-mediat ed allergic asthma 841337452 J45.909 # AsthmaWell controlled .Maintain current tx step. Body mass index 40+ - severely obese 127367469 Z68.41 Focus on a healthy diet, avoid added salt, and rifbvg9727 calories or less daily. Exercise as tolerated, targeting3 0-60 minutes of exercise daily, at least 5 days per week Screening for malignant neoplasm of breast 286711106 Z12.39 Menopause present 160262 006 N95.1 Z13.820 Screening for osteoporosis 309185835 Z13.820 Long-term drug therapy 999897080 Z79.899 Checking routine labwork for ongoing long-term medication use. Administra tion of pneumococcal vaccine 15593830 Z23 [id number] DARRIUS Gordon [facility] [address] [place] [address] 03/22/2023 15:42:37 03/23/2023 11:07:09 Acute upper respiratory infection 32466014 J06.9 Get plenty of rest, push fluids, vaporizer, saline nasal spray, robitussin for cough prn, tylenol for REYNAGA prn, call back if persistent colored nasal drainage or sputum, fevers, sinus pain, SOB. [id number] Jas Perez MD [facility] [address] [place] [address] 06/11/2023 15:29:45 06/12/2023 09:41:13 Essential hypertension 82968286 I10 # HTN - Controlled - Continue current medication s. No change in management - Encouraged routine blood pressure checksat home, targetless than 140/90 - DiscussedD EDISON diet(https ://www.nhl bi.nih.gov /files/doc s/public/h eart/dash_ brief.pdf) anddietary sodium restrictio ns - Continue/I ncrease dietary efforts and physical activity Hyperlipidemia 61171578 E78.5 # Hyperlipid emia- Last lipid panel < 1 year ago- ACC/AHA CV risk < 7.5%- Repeat in one year- Continue with current management without changes.- Focus on a dietlow in saturated fats(https ://www.[facility] fhealth.or g/educatio n/guidelin es-for-a-l ow-cholest donta-low-s aturated-f at-diet),b lood pressure control,sm oking cessation( http://owen tyes.org/) anddaily exerciseto reduce your risk ofheart disease and stroke. Mixed anxi ety and depressive disorder 006217384 F41.8 # Anxiety / Depression RAFAEL-7 score: 0. none (0-4)PHQ9 score: 0. none (0-4), recurrent. StableCont inue meds. Hypothyroidism 63840764 E03.9 # Hypothyroi dism Stable by symptoms TSH checked < year ago Continue current management without change IgE-mediat ed allergic asthma 917584388 J45.909 # AsthmaWell controlled .Maintain current tx step. Prediabetes 345022272 R7 3.03 hemoglobin A1c 6.1Continu e dietary and lifestyle interventi onsrecheck in one year Body mass index 40+ - severely obese 710102867 Z68.41 Focus on a healthy diet, avoid added salt, and foyxrg5424 calories or less daily. Exercise as tolerated, targeting3 0-60 minutes of exercise daily, at least 5 days per week Long-term drug therapy 592691687 Z79.899 Reviewed routine labwork for ongoing long-term medication use. Hyponatremia 83420305 E8 7.1 possible function of high-dose thiazide diuretic, bupropion- will decrease diuretic by , monitor blood pressure, recheck in 1 month [id number] Jas Perez MD [facility] [address] [place] [address] 01/01/2024 14:45:23 01/02/2024 11:42:55 Essential hypertension 11232597 I10 # HTN - Controlled - Continue current medication s. No change in management - Encouraged routine blood pressure checksat home, targetless than 140/90 - DiscussedD EDISON diet(https ://www.nhl bi.nih.gov /files/doc s/public/h eart/dash_ brief.pdf) anddietary sodium restrictio ns - Continue/I ncrease dietary efforts and physical activity Hyperlipidemia 74166057 E78.5 # Hyperlipid emia- Last lipid panel < 1 year ago- ACC/AHA CV risk < 7.5%- Repeat prior to next visit- Continue with current management without changes.- Focus on a dietlow in saturated fats(https ://www.[facility] [employer].or g/educatio n/guidelin es-for-a-l ow-cholest donta-low-s aturated-f at-diet),b lood pressure control,sm oking cessation( http://owen tyes.org/) anddaily exerciseto reduce your risk ofheart disease and stroke. Mixed anxi ety and depressive disorder 942135330 F41.8 # Anxiety / Depression RAFAEL-7 score: 1. none (0-4)PHQ9 score: 3. none (0-4), recurrent. StableCont inue meds. Hypothyroidism 62247327 E03.9 # Hypothyroi dism Stable by symptoms TSH checked < year ago Continue current management without change IgE-mediat ed allergic asthma 520769289 J45.909 # AsthmaWell controlled .Maintain current tx step. Prediabetes 170597962 R7 3.03 hemoglobin A1c 6.1Continu e dietary and lifestyle interventi onsrecheck with next visit Body mass index 40+ - severely obese 080530589 Z68.41 Focus on a healthy diet, avoid added salt, and kznnum3943 calories or less daily. Exercise as tolerated, targeting3 0-60 minutes of exercise daily, at least 5 days per week Long-term drug therapy 196292578 Z79.899 Reviewed routine labwork for ongoing long-term medication use. Hyponatremia 77015436 E8 7.1 history, near normal 5 months ago; probably tied to high-dose thiazide diuretic, bupropion- recheck Administra tion of diphtheria, pertussis, and tetanus vaccine 664633235 Z23 [id number] Jas Perez MD [facility] [address] [place] [address] 07/01/2024 14:40:03 07/02/2024 10:21:48 Body mass index 40+ - severely obese 450670731 Z68.41 Focus on a healthy diet, avoid added salt, and tbkkfv2600 calories or less daily. Exercise as tolerated, targeting3 0-60 minutes of exercise daily, at least 5 days per week Long-term drug therapy 902701851 Z79.899 Reviewed routine labwork for ongoing long-term medication use. Mixed anxi ety and depressive disorder 759335532 F41.8 # Anxiety/De pression RAFAEL-7 score: 0, none (0 4 ) PHQ-9 score: 0, minimal (0 4 ) Stable, continue current treatment. - Recommende d Cognitive Behavioral Therapy (https://w jairon.psychol ogytoday.c /us/ther apy-types/ cognitive- behavioral -therapy) - Encouraged relaxation techniques (https://w jairon.[facility]/pshurleypalmerflattatry/cdr o/learning -- Communitie s/wellness /stress/st ress_hando uts/) - Stress management resources (https://w jairon.[facility]/pshurleypalmerflattatry/cdr o/learning -- Communitie s/wellness /stress/st ress_resou rces/) - Self-care handouts (https://jaja shepherd.[facility].aminta dorsey/self-ca re-handout s/) - Recommende d mindfulnes s meditation and exercise. - Sleep hygiene (https://o omcenter .[facility].edu/s leep-hygie ne/) Hyperlipidemia 79102098 E78.5 # Hyperlipid emia Last lipid panel < 1 year ago ACC/AHA CV risk > 7.5% Repeat in one year Continue with current management without changes. Focus on a dietlow in saturated fats(https ://www.[facility] fhealth.or g/educatio n/guidelin es-for-a-l ow-cholest donta-low-s aturated-f at-diet),b lood pressure control,sm oking cessation( http://owen tyes.org/) anddaily exerciseto reduce your risk ofheart disease and stroke. Essential hypertension 68422185 I10 # HTN Controlled Continue current medication s. No change in management Encouraged routine blood pressure checksat home, targetless than 140/90 DiscussedD EDISON diet(https ://www.nhl bi.nih.gov /files/doc s/public/h eart/dash_ brief.pdf) anddietary sodium restrictio ns Continue/I ncrease dietary efforts and physical activity Hypothyroidism 39456955 E03.9 # Hypothyroi dism Daytime fatigue - but takes modafinil from sleep medicine TSH checked < year ago Adjust dosing based on lab results - repeat in July IgE-mediat ed allergic asthma 259927219 J45.909 # AsthmaWell controlled .Maintain current tx step. Prediabetes 037741533 R7 3.03 hemoglobin A1c 6.0, < 1 year agoContinu e dietary and lifestyle interventi ons Pain of ri ght shoulder joint [id number] 4393573 M25.511 suspicious for deltoid bursitis, given onset after injection, no history of injuryoral corticoste roids, ice, handoutspo rts medicine/ orthopedic s referral, imaging if no improvemen t [id number] Dina Hairston MD [facility] [address] [place] [address] 01/27/2025 14:55:38 01/28/2025 09:18:28 Essential hypertension 01036835 I10 -Controlle d on current therapy. -Goals: BP < 140/90 per JNC8, prevent CV and renal comorbidit ies. -Should notify office for BP less than 90/60. -Maintain a low sodium (less than 2000mg) diet and encouraged at least 30-45 minutes of aerobic activity most days of the week -Healthy weight -f/u 6 months Hyperlipidemia 81009066 E78.5 Follow a low fat and low [...] --will have labs checked in April. Prediabetes 001449582 R7 3.03 -A1C last April was 6.0.-Advis ed to cut the carbohydra mallika in diet (bread, pasta, rice, potatoes, and sweets) and increase physical activity to goal of 150 min of aerobic activity weekly.-wi ll recheck in April. Hypothyroidism 85995479 E03.9 -pt is having increased fatigue, hair loss, diarrhea and having a hard time loosing weight. Will recheck TSH + t4 today and treat appropriat yanira. [id number] Dina Hairston MD [facility] [address] [place] [address] 08/04/2025 16:06:52 08/05/2025 08:18:27 Adult health examination 928617775 Z00.00 Health Risk Assessment collected and reviewedDi scussed living will arrangemen tsAD8-no memory concernsNo safety concerns Essential hypertension 78750079 I10 -Controlle d on current therapy.-G oals: BP < 140/90 per JNC8, prevent CV and renal comorbidit ies.-Shoul d notify office for BP less than 90/60.-Sil ntain a low sodium (less than 2000mg) diet and encouraged at least 30-45 minutes of aerobic activity most days of the week-Healt hy weight-f/u 6 months 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 If she is no happy with results she will call for an appt Hypothyroidism 79286516 E03.9 -Pt educated on s/s of worsening hypothyroi dism such asfatigue ,cold intoleranc e, weight gain, constipati on, dry skin, myalgia-Pt stable at this time and will continue levo 125 mcg-rechec k TSH + T4 in June Obese class III [id number] 5 E66.813 E66.3 0478582105 -heart healthy diet and routine exercise discussed and f/u yearly Acute low back pain 6718 97504 M54.50 56967968 -denies any trauma to low back-will get xray to r/o abnormalit ies--inter ested in PT Ex-smoker 6954750 Z87.89 1 117450 Abdominal aortic aneurysm screening 543772151 Z13.6 [id number] Dina Hairston MD [facility] [address] [facility] [place] [address] 08/19/2025 15:09:02 08/20/2025 11:00:38 Essential hypertension 66103828 I10 -cut HCTZ to 25 mg due to electrolyt e imbalance and decreased GFR-BP controlled on current regimen, will recheck BMP today Mixed anxi ety and depressive disorder 637894414 F41.8 -switching from XL to SR 200 mg table due to increased fatigue and insomnia-w ill f/u in 6 weeks Health Concerns Section Related Observation LastModified by Organization Detai ls LastModified Time None Recorded Concern Status LastModified by Organization Details LastModified Time None Recorded Advance Directives Directive N: Payers Insurance Date Sequence Insurance Name Policy Number Policy Barnett Covered Member ID Barnett Member ID Guarantor Name 01/01/2024 1 [employer] (MEDICARE REPLACEMENT /ADVANTAGE - HMO) [id number] Maria Del Carmen Mccartney [id number] Maria Del Carmen Mccartney 06/19/2019 1 [facility] (PPO) [id number] Maria Del Carmen Mccartney [id number] Maria Del Carmen Mccartney 09/16/2025 1 [facility] (MEDICARE REPLACEMENT /ADVANTAGE - PPO) [id number] Maria Del Carmen Mccartney [id number] Maria Del Carmen Mccartney 04/21/2020 1 [employer] (PPO) [id number] Maria Del Carmen Mccartney [id number] Maria Del Carmen Mccartney Notes Date Note Type Note Provider Name and Address Organization Details Recorded Time 01/01/20 24 text/htm l HyperlipidemiaReported by PatientHPIFor duration, patient reportschronic. For control, patient reportsnot at goalbut reportsusually well controlled,improving, andat goal. For current therapy, patient reportscurrently taking: (atorvastatin 10 mg tablet). For compliance, patient reportscompliant,compliant with diet, andexercises. For complications, patient reportsno coronary artery disease,no peripheral artery disease, andno cardiovascular disease. Hypertension F/UReported by PatientHPIFor lifestyle, patient reportsnot exercising regularlyandhigh salt intake. For associated symptoms, patient reportsno dizziness,no lightheadedness,no chest pain,no shortness of breath,no palpitations,no edema, andno calf pain with exertion. For medications, patient reportstaking medications as directed,no side effects from medication, andchecks blood pressure at home, range: (does not check).ROS as noted in the HPI 6-MONTH FOLLOW-UP VISIT/SUBJECTIVE: Elliott presents for routine 6-month follow-up of hypertension, hyperlipidemia, depression with anxiety, and prediabetes, among other chronic conditions Last routine follow-up office visit: 89Yvg38Qetx labwork: 96Ggj54 (BMP), 43Eby24(A1c), 05Qkk21 Patient reports consistent use of medications, without side effects or intolerances. Current concerns:- none Health maintenance:- Immunizations due: vzv#2, RSV,Tdap, flu- Colorectal cancer screenin51Wvh89 - Fedder - 10yrfu- Well-woman exam: not indicated- Mammography: - DEXA: 87Ugj41 - normal- LDCT: 20+ pack-years - yearly [...] ago, 6.1Following a lower carbohydrate dietNot Exercising -Snagger/Nursing note reviewed.- Jas Perez MD Attn: Accounting, [address] , [place], [address], [place] - [facility] 01/01/2024 16:04:03 07/01/20 24 text/htm l HyperlipidemiaReported by PatientHPIFor duration, patient reportschronic. For control, patient reportsnot at goalbut reportsusually well controlled,improving, andat goal. For current therapy, patient reportscurrently taking: (atorvastatin 10 mg tablet). For compliance, patient reportscompliant,compliant with diet, andexercises. For complications, patient reportsno coronary artery disease,no peripheral artery disease, andno cardiovascular disease. Hypertension F/UReported by PatientHPIFor lifestyle, patient reportsnot exercising regularlyandhigh salt intake. For associated symptoms, patient reportsno dizziness,no lightheadedness,no chest pain,no shortness of breath,no palpitations,no edema, andno calf pain with exertion. For medications, patient reportstaking medications as directed,no side effects from medication, andchecks blood pressure at home, range: (does not check).ROS as noted in the HPI 6-MONTH FOLLOW-UP VISIT/SUBJECTIVE: Elliott presents for routine 6-month follow-up of hypertension, hyperlipidemia, depression with anxiety, and prediabetes, among other chronic conditions Last routine follow-up office visit: 1Iud38Pxsl labwork: 67Ebo81 Patient reports consistent use of medications, without side effects or intolerances. Current concerns:right arm/shoulder pain after vzv - 09/17- no weakness or paresthesias- can't sleep on, limited range of motion due to pain- no known injury levothyroxine dosing Health maintenance:Immunizations due: vzv#2, RSVColorectal cancer screenin71Nsn52 - Fedder - 10yrfuWell-woman exam: not indicatedMammography: 21Jxy24FWKD: 92Yfo05 - normalLDCT: 20+ pack-years - yearly screening [...] 1 year agoFollowing a lower carbohydrate dietExercising -Snagger/Nursing note reviewed.- Jas Perez MD Attn: Accounting, [address] [facility], [place], [address], [facility] 07/01/2024 16:29:03 01/28/20 25 text/htm l Hypertension F/UReported by PatientHPIFor associated symptoms, patient reportsno dizziness,no lightheadedness,no chest pain,no shortness of breath,no palpitations, andno edema. For lifestyle, patient reportslimiting/avoiding salt. For medications, patient reportstaking medications as directed,no side effects from medication, andchecks blood pressure at home, range: (116/79). Anxiety/DepressionReported by PatientHPIFor quality, patient reportssymptoms improved. For severity, patient reportsdenies suicidal ideations,able to maintain relationships, anddoes not interfere with activities of daily living. For context, patient reportsno major life stressors. For associated symptoms, (everythings good per patient).ROS as noted in the HPI TANESHA Whaley Attn: Accounting, [address] [facility], [place], [address], [facility] 01/27/2025 16:51:34 08/04/20 25 text/htm l MAW 2Reported by PatientSocial/Behavioral HistoryFor diet and nutrition, patient reportshealthy diet. For fracture risk, patient reportsno history of fracturesandno sudden unexplained fractures.Mental Status:For concentration and memory, patient reportsno decreased concentrating ability,no memory lapses or loss, anddoes not forget words. For speech/motor difficulties, patient reportsno speech difficulties,no difficulty expressing formulated concepts,no difficulty with fine manipulative tasks,no difficulty writing/copying,no slowed reaction time, anddoes not knock things over when trying to pick them up.Functional AbilityFor hearing, patient reportswears hearing aids. For vision, patient reportsno vision problems. For activities of daily living, patient reportsable to bathe with limited or no assistance,able to contol urination and bowels,able to dress with limited or no assistance,able to feed self with limited or no assistance,able to get out of chair or bed with limited or no assistance,able to groom with limited or no assistance, andable to toilet with limited or no assistance. For instrumental activities of daily living, patient reportsable to do house work with limited or no assistance,able to grocery shop with limited or no assistance,able to manage medications with limited or no assistance,able to manage money with limited or no assistance,able to prepare meals with limited or no assistance, andable to use the phone with limited or no assistance. For falls risk assessment, patient reportsno frequent falls while walking,no fall in the past year,no fall since last visit, andno dizziness/vertigo. For home safety, patient reportsno unsafe mellisa hazzards,no unsafe stairs,working smoke/co detectors,practicing 'safer sex',no fire arms,has hand bars in the bathroom/shower, andgood lighting in the home.ROS as noted in the HPI TANESHA Whaley Attn: Accounting, [address] [facility] [address], [place], [address], [facility] 08/04/2025 17:03:02 08/19/20 25 text/htm l Hypertension F/UReported by PatientHPIFor lifestyle, patient reportsnot exercising regularlybut reportslimiting/avoiding salt. For associated symptoms, patient reportsno dizziness,no lightheadedness,no chest pain,no shortness of breath,no palpitations,no edema, andno calf pain with exertion. For medications, patient reportstaking medications as directedandno side effects from medication.ROS as noted in the HPI TANESHA Whaley Attn: Accounting, [address] [place], [address], [facility] 08/19/2025 16:50:29 OBGyn Episode No OBEpisode recorded.
--- NOTE | 2025-09-16 16:00 | PC.NURSE ---
Provider at bedside updating family. Pt will either need to be transferred or seen in ortho clinic tomorrow AM per Dr. Nolan. Pt verbalized understanding.
[2025-09-16 16:10] VITALS: BP 153/75; PULSE 73; RESP 16; O2SAT 97
[2025-09-16] MEDS: ACETAMINOPHEN 500 MG TABLET 1000 MG PO (16:13)
[2025-09-16] MEDS: oxyCODONE HCL (*CRX) 5 MG TAB IR PO (16:14)
--- NOTE | 2025-09-16 16:32 | PC.NURSE ---
Addendum entered by Bharti Song RN 09/16/25 16:36: time of this incorrect. conversation was had at 1610 Original Note: Pt expressed that she was in pain. Pt has not recieved any pain medication since she arrived here besides what was given pre-reduction. Dr. Nolan notified and agreed to place order for pain medications.
--- OUTSIDE RECORDS SUMMARY | 2025-09-16 18:08 | XMS_ITS | Clinical Summary ---
Author Organization [facility] Address [address] [place] [address] Care Team Providers Care Visual Lead Name Role Phone Patricia Meléndez MD Primary Care Provider [phone] Social History Tobacco Use Types Packs/Day Years [...] Scan (General) 2019 COVID-19 Vaccine ( - 2024-2 6 season) 2025 Influenza Adult (#1) 2025 RSV [...] to complete this topic Care Teams Visual Lead Relationship Specialty Start Date End Date Patricia Meléndez MD PCP - General 06/29/15
--- OUTSIDE RECORDS SUMMARY | 2025-09-16 18:08 | XMS_ITS | Clinical Summary ---
Author Organization [facility] Address [address] [place] [address] Care Team Providers Care Subgrade Roller Operator Name Role Phone Patricia Meléndez MD Primary Care Provider [phone] Source Comments [facility],non-owned Affiliates and Associated Physician Practices is amultiple site organization consisting of ambulatory clinics and hospital sitesin [place] and [place]. This disclosure is being madepursuant to the Care Everywhere program and may not contain all information available regarding this patient. Last updated 18.[facility] [employer] Active Problems Problem Noted Date Diagnosed Date [...] on file Legal Sex Female 6:21 PM DATA ANALYSIS INTERN Gender Identity Not on file Sexual Orientation Not on file Last Filed Vital Signs Vital Sign Reading Time Taken Comments Blood Pressure 149/88 01/07/2015 3:29 PM DATA ANALYSIS INTERN Pulse 97 01/07/2015 3:29 PM DATA ANALYSIS INTERN Temperature 37.3 C (99.1 F) 01/07/2015 3:29 PM DATA ANALYSIS INTERN Respiratory Rate 18 01/07/2015 3:29 PM DATA ANALYSIS INTERN Oxygen Saturation - - Inhaled Oxygen Concentration - - Weight 115.7 kg (255 lb) 01/07/2015 3:29 PM DATA ANALYSIS INTERN Height 167.6 cm (5' 6) 01/07/2015 3:29 PM DATA ANALYSIS INTERN Body Mass Index 41.16 01/07/2015 3:29 PM DATA ANALYSIS INTERN Plan of Treatment Health Maintenance Due Date [...] HEPATITIS C ANTIBODY Routine 11/05/2014 5:25 PM DATA ANALYSIS INTERN from Last 3 Months or Most Recently Relevant to Health Maintenance Results * HEPATITIS C ANTIBODY (11/05/2014 5:25 PM DATA ANALYSIS INTERN) Hepatitis C Antibody [facility] Comment: Hepatitis C Antibody screen indicates no serologic evidence of past or current infection with Hepatitis C Virus. Patients with unexplained liver disease who are immunocompromised or suspected of having acute Hepatitis C infection may benefit from Nucleic Acid Test (GRACE) for Hepatitis C Viral RNA to confirm Hepatitis C status. Blood specimen (specimen) BLOOD SPECIMEN / Unknown 11/05/2014 5:25 PM DATA ANALYSIS INTERN 11/05/2014 6:39 PM DATA ANALYSIS INTERN Colt Alexander MD LAB - CHEMISTRY ORDERABLES Migdalia mast Result [address] [phone] from Last 3 Months or Most Recently Relevant to Health Maintenance Insurance [employer] Care Teams Subgrade Roller Operator Relationship Specialty Start Date End Date Patriica Meléndez MD [address] [address] PCP - General 11/05/14
--- OUTSIDE RECORDS SUMMARY | 2025-09-16 18:08 | XMS_ITS | Clinical Summary ---
Author Organization [facility] Address [address] [place] [address] Care Team Providers Care Soda Jerker Name Role Phone Lety Trotter KE Primary [...] 01/15/2024 Assessment & Plan (01/20/2025 2:40 PM MAT PACKER): The patient will continue with Provigil 200 mg p.o. Q a.m.. Assessment & Plan (01/15/2024 2:47 PM MAT PACKER): The patient has hypersomnia not completely treated with CPAP for CHRISTO. She is trying to get a refill on her Provigil 200 mg p.o. q.a.m.. Hyponatremia 06/11/2023 Pain in both feet 05/18/2023 Morbid (severe) obesity due to excess calories 0 01/02/2023 Body mass index 40.0-44.9, adult ([facility]) 01/02 Personal history of tobacco use 01/02/2023 Assessment & Plan (01/20/2025 2:40 PM MAT PACKER): I have ordered a low-dose screening CT scan for November 2025. The patient did stop smoking 2017 and August. Assessment & Plan (01/15/2024 2:47 PM MAT PACKER): She quit smoking in 2017. She did smoke 1.5 packs of cigarettes per day for 40 years. I will order another screening chest CT for next November 2024 Assessment & Plan (01/02/2023 3:15 PM MAT PACKER): I have ordered a lung cancer screening CT for December of 2023 Patient's smoking history is 1 and half packs of cigarettes per day for 40 years and quit in August 2018 BMI 40.0-44.9, adult 12/04/2022 Hyperlipidemia 05/06/2019 Prediabetes 06/27/2017 Obstructive sleep apnea syndrome 11/02/2016 Assessment & Plan (01/20/2025 2:39 PM MAT PACKER): Patient continue to wear her CPAP at 17 cm water pressure while sleeping. Her DME is [place]. Assessment & Plan (01/15/2024 2:47 PM MAT PACKER): The patient continues to benefit from the auto titrating CPAP unit with a range of 7-10 cm water pressure for ongoing symptoms CHRISTO. Her DME supplier is [facility] in [place]. She will follow up here in 1 year. Assessment & Plan (01/02/2023 3:15 PM MAT PACKER): Will continue CPAP at 17 cm water pressure. DME [facility] Assessment & Plan (01/03/2022 2:47 PM MAT PACKER): The patient will continue with CPAP therapy at 17 cm water pressure. The patient denied need for supplies. DME company [facility]. The patient and I discussed [...] 01/03/202201/15 Assessment & Plan (01/02/2023 3:15 PM MAT PACKER): Will continue Provigil 200 mg daily. I will refill for 1 year Assessment & Plan (01/03/2022 2:47 PM MAT PACKER): The patient will continue with Provigil 200 [...] on file Legal Sex Female 8:14 PM MAT PACKER Gender Identity Female 11/21/2022 4:52 PM MAT PACKER Sexual Orientation Straight 11/21/2022 4: 52 PM MAT PACKER Obstetrics History Last Filed Vital Signs Vital [...] Read Routine (OP Routine) 12/17/2024 3:57 PM MAT PACKER Personal history of tobacco use from Last [...] age 39, based on guidelines of the [employer] (ACR Practice Parameter for the Performance of Screening and Diagnostic Mammography) and [employer]. For women [...] Willis MD - 05/04/2025 10:59 AM CDT [facility] ENDOSCOPY Patient Name: Maria Del Carmen Mccartney Procedure Date: 05/04/2025 10:59 AM Date of : 1955 Admit Type: Outpatient Age: 69 Gender: Female Attending MD: Issac Willis M.D. Room: [facility] ENDOSCOPY ROOM 03 Note Status: Finalized [...] The scope was passed under direct vision.The [id number] colonoscope was introduced through theanus and advanced [...] On: 05/04/2025 10:59 AM Recognized by the [employer] [employer] for promoting quality in endoscopy us Issac Willis MD ENDOSCOPY PROCEDURES Final Resul t * CT Lung Cancer Screening (12/17/2024 3:57 PM MAT PACKER) Anatomical Region Laterality Modality Chest N/A Computed Tomogra phy 12/17/2024 9:32 PM MAT PACKER Narrative 12/17/2024 9:36 PM MAT PACKER EXAM DESCRIPTION: CT LUNG CANCER SCREENING REASON [...] Bibi Weiss M.D. FT: FT Report ID: [id number] Reading Location: [id number] Procedure Note Bibi Gayle MD - 12/17/2024 [...] Bibi Weiss M.D. FT: FT Report ID: [id number] Reading Location: [place] [address] Juvenal hSelby MD IMG CT PROCEDURES Final R esult from Last 3 Months or Most Recently Relevant to Health Maintenance Insurance [facility] [place]ARE [place] [phone] [facility] [place] [place] [phone] Care Teams Soda Jerker Relationship Specialty Start Date End Date Lety Trotter NP [address] [address] PCP - General Family Medicine 11/17/24
--- OUTSIDE RECORDS SUMMARY | 2025-09-16 18:08 | XMS_ITS | Encounter Summary ---
Author Organization [facility] Facility Care Team Providers Care Aircraft Engine Dismantler Name Role Phone Patricia Meléndez MD Primary Care Provider [phone] Lety Trotter NP Primary Care Provid er Encounter Details Date Type Department Care Team (Latest Contact Info) Description 09/18/2018 Orders Only [facility]IN[facility] ProviderModesta MD [address] [place], [place] [id number] Social History Tobacco Use Types Packs/Day Years Used Date Smoking Tobacco: Never Assessed Comments Unknown Sex and Gender Information Value Date Recorded Sex Assigned at Not on file Legal Sex Female 8:14 PM [employer] Gender Identity Female 11/21/2022 4:52 PM [employer] Sexual Orientation Straight 11/21/2022 4: 52 PM [employer] documented as of this encounter Plan of [...] on filedocumented in this encounter Care Teams Aircraft Engine Dismantler Relationship Specialty Start Date End Date Patricia Meléndez MD [address] [facility] [address] [place] [address] PCP - General 01/07/19 11/21/22 Lety Trotter NP [address] [facility] [address] [place] [address] PCP - General Family Medicine 11/17/24 documented as of this encounter
--- NOTE | 2025-09-16 18:16 | PC.NURSE ---
Dr. Nolan at bedside updating pt. and pt. visitor.
--- NOTE | 2025-09-16 18:18 | PC.NURSE ---
Pt. offered an ambulance for transfer to [facility] ED. Pt. declined, states she will go via private vehicle.
--- NOTE | 2025-09-16 18:26 | PC.NURSE ---
Report called to Tiffanie ANN in [facility] ED @[phone] for this pt. All questions were answered by this RN. Tiffanie was notified that pt requested to come by private vehicle instead of ambualnce.
[2025-09-16 18:27] VITALS: BP 135/90; BP 154/75; PULSE 85; PULSE 97; RESP 16; RESP 18; TEMP 36.6; O2SAT 97; O2SAT 98
== END 2025-09-16 18:45 | disposition short-term general hospital (02) ==
PROVIDERS: Emergency Provider Emergency Medicine
DX: S43.004A Unspecified dislocation of right shoulder joint, initial encounter (principal); W11.XXXA Fall on and from ladder, initial encounter; G89.18 Other acute postprocedural pain; E03.9 Hypothyroidism, unspecified; G47.33 Obstructive sleep apnea (adult) (pediatric); Z99.89 Dependence on other enabling machines and devices; I10 Essential (primary) hypertension; E78.5 Hyperlipidemia, unspecified; F41.9 Anxiety disorder, unspecified; Z87.891 Personal history of nicotine dependence
CPT/HCPCS: 64415; 23650; 73020; 73030; 99285; A9270

== ENCOUNTER 2025-11-20 09:10 | Emergency (ER) | payer MEDICARE, SELFPAY ==
[2025-11-20 09:28] VITALS: BP 136/74; PULSE 88; RESP 16; TEMP 37.4; O2SAT 96
--- NOTE | 2025-11-20 09:28 | ED.URI ---
HPI - URI/Sore Throat General Chief Complaint: Upper Respiratory Infection Stated Complaint: Sinus Source: patient Mode of arrival: ambulatory Limitations: no limitations History of Present Illness HPI Narrative: this is a 70-year-old female patient that presents to the urgent care with complaints of cough, body aches, low-grade fevers up to 100, sinus congestion, and fatigue since Sunday. Patient did take 2 Advil last night that helped to reduce her fever. Patient denies any shortness of breath or chest pain. She denies any nausea, vomiting or diarrhea. States that her family members were ill prior her son son is currently recovering from a viral illness. MD elicited complaint: fever, cough and nasal congestion Onset (ago): day(s) (4) Consistency: constant Severity: mild Description of mucous: clear Able to tolerate fluids by mouth: Yes Exacerbating factors: nothing Relieving factors: OTC cold medicine Context: sick contacts Associated symptoms: denies other symptoms Treatments prior to arrival: acetaminophen and cold medicine Related Data Home Medications ?Medication ?Instructions ?Recorded ?Confirmed ?Last Taken ?Type atorvastatin 10 mg tablet 10 mg PO DAILY 07/31/20 09/16/25 07/23/22 History hydrochlorothiazide 50 mg tablet 50 mg PO DAILY 07/31/20 09/16/25 07/23/22 History levothyroxine 125 mcg tablet 125 mcg PO DAILY 07/31/20 09/16/25 07/23/22 History modafinil 200 mg tablet 200 mg PO DAILY 07/31/20 09/16/25 07/23/22 History trazodone 100 mg tablet 100 mg PO DAILY 07/31/20 09/16/25 07/23/22 History multivitamin-ferrous 1 tablet PO DAILY 07/11/22 09/16/25 07/23/22 History fumarate-folic acid 18 mg-400 mcg tablet (Centrum Women) bupropion HCl 200 mg tablet,12 hr mg PO 09/16/25 Unknown History sustained-release meloxicam 15 mg tablet mg 09/16/25 Unknown History Allergies Allergy/AdvReac Type Severity Reaction Status Date / Time No Known Allergies Allergy Verified 09/16/25 10:45 Review of Systems Review of Systems: All systems reviewed & are unremarkable except as noted in HPI and below PMFSH Past Medical History Medical History Anxiety Hypothyroidism CHRISTO on CPAP HTN (hypertension) Hyperlipidemia Morbid obesity with BMI of 40.0-44.9, adult Family History Family History Other Carcinoma of colon Diabetes mellitus Family history of cardiovascular disease Family history of chronic obstructive pulmonary disease Family history of congestive heart failure Family history of lung cancer Family history of lymphoma Social History Social History Smoking status: Former smoker Tobacco type: cigarettes Alcohol intake: current Substance use type: does not use Living arrangements: with family Spiritual care concerns: No Exam Const: General: ill appearing Nutritional Appearance: well nourished Orientation/consciousness: patient oriented x3 Limitations: no limitations HENMT: Head: normal to inspection Ears: external ears normal Face/Nose/Sinus: Nasal discharge present mucoid Face and sinus: sinus tenderness maxillary Mouth: Yes Normal oral and palatal mucosa present Teeth and gingiva: dentition normal Throat: posterior oropharynx normal Eyes: Conjunctivae: conjunctivae normal Pupils: Equal, round and reactive pupils present EOM: EOMs intact bilaterally Neck: Neck: normal visual inspection Chest: Chest palpation & inspection: normal inspection of the chest Resp: Effort & Inspection: normal respiratory effort Auscultation: clear to auscultation bilaterally Cardio: Rate: regular rate Rhythm: regular rhythm GI: GI Palp: Yes Soft to palpation Auscultation: normal bowel sounds : General: Yes bladder normal to palpation Skin: General skin exam: normal color Rashes: no rashes Wounds: no wounds Neuro: General: patient oriented x3 Cranial nerves: Yes Nystagmus not present Speech: normal speech Extrem: General: normal to inspection Psych: Mental Status: mental status grossly normal Affect: normal affect Attitude: cooperative Course Course Emergency Course: this is a 70-year-old female patient that presents to the urgent care with complaints of cough, body aches, low-grade fevers up to 100, sinus congestion, and fatigue since Sunday. Patient did take 2 Advil last night that helped to reduce her fever. Patient denies any shortness of breath or chest pain. She denies any nausea, vomiting or diarrhea. States that her family members were ill prior her son son is currently recovering from a viral illness. Vital signs are stable she is afebrile COVID, influenza ordered patient was COVID positive, influenza a and B negative discussed with patient COVID positive results, symptom management outpatient follow-up. Educated on contagious status in isolation. Answered all her questions to her satisfaction she is agreeable to plan. Educated patient to Increase fluids, Rest, You ARE? contagious, please avoid? public places, immune compromise, elderly and younger patients. Continue with symptomatic management: -? Cough medication per package instructions -? Tylenol and motrin for fever and pain -? Cough drops for sore throat and cough -? Mucinex for congestion -? Vicks vapor rub -? Cool mist vaporizer Follow up with your primary MD in the next 2-3 days for further exam or Present to the ER for any worrisome sign or symptom. patient verbalizes understanding of instructions, she denies any further needs or concerns to be addressed prior to discharge Level of Care: Express Care Visit Vital Signs Vital signs: Vital Signs Temperature 99.3 F 11/20/25 09:28 Pulse Rate 88 11/20/25 09:28 Respiratory Rate 16 11/20/25 09:28 Blood Pressure 136/74 11/20/25 09:28 Pulse Oximetry 96 11/20/25 09:28 Oxygen Delivery Room Air 11/20/25 09:28 Temperature 99.3 F 11/20/25 09:28 Pulse Rate 88 11/20/25 09:28 Respiratory Rate 16 11/20/25 09:28 Blood Pressure 136/74 11/20/25 09:28 Pulse Oximetry 96 11/20/25 09:28 Oxygen Delivery Room Air 11/20/25 09:28 MDM MDM Narrative Medical decision making narrative: this is a 70-year-old female patient that presents to the urgent care with complaints of cough, body aches, low-grade fevers up to 100, sinus congestion, and fatigue since Sunday. Patient did take 2 Advil last night that helped to reduce her fever. Patient denies any shortness of breath or chest pain. She denies any nausea, vomiting or diarrhea. States that her family members were ill prior her son son is currently recovering from a viral illness. Vital signs are stable she is afebrile COVID, influenza ordered patient was COVID positive, influenza a and B negative discussed with patient COVID positive results, symptom management outpatient follow-up. Educated on contagious status in isolation. Answered all her questions to her satisfaction she is agreeable to plan. Educated patient to Increase fluids, Rest, You ARE? contagious, please avoid? public places, immune compromise, elderly and younger patients. Continue with symptomatic management: -? Cough medication per package instructions -? Tylenol and motrin for fever and pain -? Cough drops for sore throat and cough -? Mucinex for congestion -? Vicks vapor rub -? Cool mist vaporizer Follow up with your primary MD in the next 2-3 days for further exam or Present to the ER for any worrisome sign or symptom. patient verbalizes understanding of instructions, she denies any further needs or concerns to be addressed prior to discharge Differential Diagnosis Differential Diagnosis: viral illness, influenza COVID Medical Records I have reviewed the following patient records and this information was taken into consideration when formulating the assessment and plan.: previous labs and previous clinic visits Lab Data MDM Lab Attestation statement: I personally reviewed the patient's lab results. Lab results narrative: COVID-19 positive influenza a and B negative Labs: Lab Results 11/20/25 Range/Units 09:24 POC Influenza A Ag Negative (Negative) POC Influenza B Ag Negative (Negative) POC SARS CoV-2 Ag Positive (Negative) Discharge Plan Discharge Clinical Impression: COVID Patient Disposition: Home Condition: Stable Instructions: COVID-19 (Coronavirus Disease 2019) (ED) Additional Instructions: Increase fluids Rest You ARE contagious, please avoid public places, immune compromise, elderly and younger patients. Continue with symptomatic management: -? Cough medication per package instructions -? Tylenol and motrin for fever and pain -? Cough drops for sore throat and cough -? Mucinex for congestion -? Vicks vapor rub -? Cool mist vaporizer Follow up with your primary MD in the next 2-3 days for further exam or Present to the ER for any worrisome sign or symptom Such as sharp but chest pain, sudden shortness of breath Patient Language: Barbadian Prescriptions: No Action atorvastatin 10 mg tablet 10 mg PO DAILY hydrochlorothiazide 50 mg tablet 50 mg PO DAILY modafinil 200 mg tablet 200 mg PO DAILY trazodone 100 mg tablet 100 mg PO DAILY levothyroxine 125 mcg tablet 125 mcg PO DAILY meloxicam 15 mg tablet bupropion HCl 200 mg tablet sustained-release 12 hr PO tizanidine 4 mg capsule 4 mg PO HS PRN (Reason: muscle spasticity) Qty: 30 0RF Centrum Women 18-400 mg-mcg Tablet 1 tablet PO DAILY Follow-up/Referrals: Serog,Lety Garcia APRN [Primary Care Provider, Nursing] Time of Disposition: 09:52
[2025-11-20 09:45] LABS: EDCOVIDSCREEN Positive (Negative); EDINFLUASCREEN Negative (Negative); EDINFLUBSCREEN Negative (Negative)
== END 2025-11-20 09:56 | disposition home or self-care (01) ==
PROVIDERS: Emergency Provider Nurse Practitioner Family; PCP Registered Nurse School
DX: U07.1 COVID-19 (principal); E03.9 Hypothyroidism, unspecified; I10 Essential (primary) hypertension; E78.5 Hyperlipidemia, unspecified; Z87.891 Personal history of nicotine dependence
CPT/HCPCS: 87426; 87804; 99212; G0463